=== PATIENT | male | born 1940 | race Caucasian/White ===

== ENCOUNTER 2016-11-03 17:54 | Inpatient (IN) ==
--- NOTE | 2016-11-03 18:55 | Emergency Department Note ---
Disposition Clinical Impression: Scrotal abscess Disposition: Admitted As Inpatient Referrals: NO,PCP [Primary Care Provider] - Forms: ED Satisfaction Letter Male Urogenital HPI - General Chief complaint: ED Wound/Laceration Stated complaint: Scar Bleeding Time Seen by Provider: 11/03/16 18:40 Source: patient Limitations: no limitations Nursing Notes Reviewed: Yes Vital Signs Reviewed: Yes - History of Present Illness HPI Narrative: Patient is a 76-year-old male who had a surgical procedure on his testicle last month is complaining of some pain swelling and discharge from his scrotum. He states the swelling was going down and then started increasing is currently on Levaquin about 5 AM and area on the left side of his scrotum opened up and started draining blood and pus. He is having pain redness in the scrotum Pt Subjective Complaint: other Severity: moderate Quality: aching, dull Improves with: rest, elevation Worsens with: palpation recent surgery Reports: discharge, swelling. Denies: nausea/vomiting - Related Data Home Medications Medication Instructions Recorded Confirmed Ascorbic Acid [Vitamin C] 1,000 mg PO DAILY 09/14/16 09/14/16 Calcium Carb/Magnesium Hydrox 1 each PO DAILY 09/14/16 09/14/16 [Antacid Extra Strngth Tab Chew] Cholecalciferol (Vitamin D3) 1,000 unit PO DAILY 09/14/16 09/14/16 [Vitamin D3] Kelp 1 each PO DAILY 09/14/16 09/14/16 Vitamin B Complex 1 each PO DAILY 09/14/16 09/14/16 Vitamin E (Dl,Tocopheryl Acet) 400 unit PO DAILY 09/14/16 09/14/16 [Vitamin E] Previous Rx's Medication Instructions Recorded HYDROcodone/Acet 10/325 mg [Mays 1 tab PO Q4HR PRN #20 tab 09/14/16 10-325 mg] Allergies Allergy/AdvReac Type Severity Reaction Status Date / Time cephalexin [From Keflex] AdvReac Rash Verified 09/14/16 13:26 All systems ED: reviewed and negative except as stated. Constitutional: Denies: fever, chills, weakness Gastrointestinal: Denies: nausea, vomiting Past Medical History - Past Medical History Source: patient, old records reviewed, nursing notes reviewed Medical history: Reports: atrial fibrillation, DVT Surgical history: Reports: other Psychiatric history: Reports: no psych history - Social History Smoking Status: Never smoker Smokeless Tobacco Status: No Alcohol use: Reports: none Drug use: Reports: none Physical Exam - General Limitations: no limitations General appearance: alert, in no apparent distress - Eye Eye exam: Present: normal appearance - ENT ENT exam: normal exam, normal oropharynx, mucous membranes moist, normal external ear exam - Neck Neck exam: Present: normal inspection, full ROM, trachea midline - Chest Chest inspection: Present: normal inspection, symmetric chest wall rise - Respiratory Respiratory exam: Present: normal lung sounds bilaterally - Cardiovascular Cardiovascular exam: Present: regular rate, normal rhythm, normal heart sounds - Abdominal Exam Abdominal Exam: Present: soft, Non-Tender, normal bowel sounds - Male exam: Present: scrotal swelling (With a open area on the left side of the scrotum draining purulent material and a scant amount of blood) - Neurological Exam Neurological exam: Present: alert, oriented X3, normal gait - Psychiatric Psychiatric exam: Present: normal affect, normal mood - Skin Skin exam: Present: warm, dry, intact, normal color Course - Consultations Consultation #1: DR. SR, [facility], [facility] WILL CONSULT IN AM Time: 20:40 Vital Signs Temperature 99.4 F 11/03/16 18:06 Pulse Rate 92 11/03/16 18:06 Respiratory Rate 18 11/03/16 18:06 Blood Pressure 185/100 11/03/16 18:06 O2 Sat by Pulse Oximetry 96 11/03/16 18:06 Temperature 99.4 F 11/03/16 18:06 Pulse Rate 78 11/03/16 19:30 Respiratory Rate 16 11/03/16 19:27 Blood Pressure 140/80 11/03/16 19:30 O2 Sat by Pulse Oximetry 96 11/03/16 18:06 Oxygen Delivery Oxygen Delivery Room Air Urogenital-Male - Medical Records Medical records reviewed: Yes I reviewed the patient's medical records. - Lab Data Lab results reviewed: Yes I reviewed the patient's lab results. Result diagrams: 11/03/16 20:00 11/03/16 20:00 Lab Results 11/03/16 11/03/16 11/03/16 Range/Units 20:00 20:00 20:00 WBC 15.3 H (4.3-11.1) K/mcL RBC 4.20 (4.19-5.50) M/mcL Hgb 12.2 L (12.9-16.9) g/dL Hct 38.6 (37.5-50.1) % MCV 91.9 (83.0-100.0) fL MCH 29.0 (28.0-33.3) pg MCHC 31.6 (31.6-35.5) g/dL RDW 14.2 (11.5-14.5) % Plt Count 368 (140-400) K/mcL MPV 8.7 L (9.4-12.4) fL Immature Gran % 1.4 (0-4) % Seg Neutrophils % 82.1 % Lymphocytes % 6.5 % Monocytes % 7.3 % Eosinophils % 2.2 % Basophils % 0.5 % Neutrophils # 12.6 H (1.6-8.9) K/mcL Lymphocytes # 1.0 (0.6-4.6) K/mcL Monocytes # 1.1 (0.0-1.3) K/mcL Eosinophils # 0.3 (0.0-0.6) K/mcL Basophils # 0.1 (0.0-0.2) K/mcL PT 34.5 H (9.4-12.1) Seconds INR 3.1 APTT 42.5 H (26.0-36.0) Seconds Sodium 137 (136-145) mEq/L Potassium 4.9 H (3.5-4.5) mEq/L Chloride 101 (98-109) mEq/L Carbon Dioxide 26 (19-29) mEq/L BUN 15 (8-26) mg/dL Creatinine 0.91 (0.72-1.25) mg/dL Est GFR ( Amer) > 60 (> 60) Est GFR (Non-Af Amer) > 60 (> 60) BUN/Creatinine Ratio 16 (6-26) Glucose 100 H (70-99) mg/dL Calculated Osmolality 285 (280-300) Lactic Acid (0.5-2.2) mmol/L Calcium 9.4 (8.6-10.8) mg/dL Total Bilirubin 0.5 (0.2-1.2) mg/dL Direct Bilirubin 0.3 (0.0-0.5) mg/dL Indirect Bilirubin 0.2 (0.0-1.2) mg/dL AST 30 (5-34) Units/L ALT 53 (0-55) Units/L Alkaline Phosphatase 95 (38-126) Units/L Serum Total Protein 7.8 (6.0-8.3) g/dL Albumin 2.8 L (3.5-5.0) g/dL Globulin 5.0 H (2.4-3.5) g/dL Albumin/Globulin Ratio 0.6 L (1.1-2.2) 11/03/16 Range/Units 20:00 WBC (4.3-11.1) K/mcL RBC (4.19-5.50) M/mcL Hgb (12.9-16.9) g/dL Hct (37.5-50.1) % MCV (83.0-100.0) fL MCH (28.0-33.3) pg MCHC (31.6-35.5) g/dL RDW (11.5-14.5) % Plt Count (140-400) K/mcL MPV (9.4-12.4) fL Immature Gran % (0-4) % Seg Neutrophils % % Lymphocytes % % Monocytes % % Eosinophils % % Basophils % % Neutrophils # (1.6-8.9) K/mcL Lymphocytes # (0.6-4.6) K/mcL Monocytes # (0.0-1.3) K/mcL Eosinophils # (0.0-0.6) K/mcL Basophils # (0.0-0.2) K/mcL PT (9.4-12.1) Seconds INR APTT (26.0-36.0) Seconds Sodium (136-145) mEq/L Potassium (3.5-4.5) mEq/L Chloride (98-109) mEq/L Carbon Dioxide (19-29) mEq/L BUN (8-26) mg/dL Creatinine (0.72-1.25) mg/dL Est GFR ( Amer) (> 60) Est GFR (Non-Af Amer) (> 60) BUN/Creatinine Ratio (6-26) Glucose (70-99) mg/dL Calculated Osmolality (280-300) Lactic Acid 0.9 (0.5-2.2) mmol/L Calcium (8.6-10.8) mg/dL Total Bilirubin (0.2-1.2) mg/dL Direct Bilirubin (0.0-0.5) mg/dL Indirect Bilirubin (0.0-1.2) mg/dL AST (5-34) Units/L ALT (0-55) Units/L Alkaline Phosphatase (38-126) Units/L Serum Total Protein (6.0-8.3) g/dL Albumin (3.5-5.0) g/dL Globulin (2.4-3.5) g/dL Albumin/Globulin Ratio (1.1-2.2)
[2016-11-03 20:15] LABS: Basophils # 0.1 K/mcL (0.0-0.2); Basophils % 0.5 %; Eosinophils # 0.3 K/mcL (0.0-0.6); Eosinophils % 2.2 %; Hematocrit 38.6 % (37.5-50.1); Hemoglobin 12.2 g/dL (12.9-16.9); Immature Granulocytes % 1.4 % (0-4); Lymphocytes % 6.5 %; Mean Corpuscular HGB Conc 31.6 g/dL (31.6-35.5); Mean Corpuscular Volume 91.9 fL (83.0-100.0); Mean Platelet Volume 8.7 fL (9.4-12.4); Monocytes # 1.1 K/mcL (0.0-1.3); Monocytes % 7.3 %; Neutrophils # 12.6 K/mcL (1.6-8.9); Platelet Count 368 K/mcL (140-400); Red Cell Distribution Width 14.2 % (11.5-14.5); Segmented Neutrophils % 82.1 %
[2016-11-03 20:21] LABS: INR 3.1; Prothrombin Time 34.5 Seconds (9.4-12.1)
[2016-11-03 20:24] LABS: Activated Partial Thrombo Time 42.5 Seconds (26.0-36.0)
[2016-11-03 20:30] LABS: Alanine Aminotransferase 53 Units/L (0-55); Albumin 2.8 g/dL (3.5-5.0); Albumin/Globulin Ratio 0.6 (1.1-2.2); Alkaline Phosphatase 95 Units/L (38-126); Aspartate Amino Transferase 30 Units/L (5-34); BUN/Creatinine Ratio 16 (6-26); Bilirubin,Direct 0.3 mg/dL (0.0-0.5); Bilirubin,Indirect 0.2 mg/dL (0.0-1.2); Bilirubin,Total 0.5 mg/dL (0.2-1.2); Blood Urea Nitrogen 15 mg/dL (8-26); Calcium 9.4 mg/dL (8.6-10.8); Carbon Dioxide 26 mEq/L (19-29); Chloride 101 mEq/L (98-109); Glucose 100 mg/dL (70-99); Osmolality,Calculated 285 (280-300); Potassium 4.9 mEq/L (3.5-4.5); Sodium 137 mEq/L (136-145); Total Protein 7.8 g/dL (6.0-8.3); eGFR For African Americans > 60 (> 60); eGFR For Non-African Americans > 60 (> 60)
[2016-11-03] MEDS ORDERED: Clindamycin 600 MG/50 ML 600 MG/50 ML IV.SOLN IVPB ONE (20:33)
[2016-11-03] MEDS ORDERED: Vancomycin 2,000 MG in D5% in Water 500 ML IVPB ONE (21:00)
[2016-11-03] MEDS ORDERED: *HR* HYDROcodone/Acet 5/325 mg TABLET PO PRN (22:27)
[2016-11-03] MEDS ORDERED: Naloxone 0.4 MG/ML INJ IVP PRN (22:27)
[2016-11-03] MEDS ORDERED: Acetaminophen 325 MG TABLET PO PRN (22:27)
--- NOTE | 2016-11-03 22:51 | Internal Med History&Physical ---
Date of Encounter: 11/03/16 Time of Encounter: 22:36 Assessment and Plan (1) Scrotal abscess Current visit: Yes Status: Acute 1 patient had undergone a hydrocelectomy beginning of September. He had been doing well up until approximately last week when he began to experience pain swelling redness. Left side of scrotum opened and began to drain blood/pus. He did have fever on Tuesday temperature 100.1 he was seen by his urologist who placed him on antibiotics however he was not improving. Blood/wound cultures have been obtained, he was given vancomycin and clindamycin per recommendations of urology. We will continue with antibiotics 2 urology has been consulted and will see patient 3 patient does admit that he does not have any difficulty urinating however he does dribble which leaks down onto his scrotum, concern for continued contamination-patient may need Garcia placement-however due to swelling, we will wait for urology to evaluate before placing catheter (2) Dvt femoral (deep venous thrombosis) Current visit: No Status: Chronic 1 patient has history of DVT treated with Xaralto we will continue Qualifiers: Chronicity: chronic Laterality: left Qualified Code(s): I82.512 - Chronic embolism and thrombosis of left femoral vein (3) Hydrocele in adult Current visit: No Status: Chronic 1 patient has history of hydrocele-urology consulted Internal Medicine - H&P: HPI Chief complaint: scrotal drainage Admitted From: Emergency Dept Plans for Post Hospital Care: Home History of present illness: Mr. Arcos is a 76 year old male with past medical history of DVT PVD venous stasis hydrocele. The patient underwent a Hydrocelectomy R scrotum . He was doing quite well up until approximately a week ago when he noticed that his scrotum began to swell. He contacted Dr Contreras who saw him and obtained ultrasound and placed him on Levaquin. On Tuesday he had a fever of 101. The scrotum continued to be swollen, it became red and painful .At approx 5am the L side of the scrotum began to drain blood and pus. He presented to the ED with the above complaints . Lab work did reveal WBC 15.3 lactate 0.9 Blood/wound cultures were obtained. ER physician did speak with DR Lara who will see patient upon consult and suggest Vanc and clindamycin. He has been admitted for further work up and evaluation. Presently he denies any CP or SOB. Lung sounds are clear Heart sounds are regular S1S2 no rubs clicks gallops murmurs noted. His scrotum is red and edematous. Left side of scrotum has small lesion with red drainage. Patient does state that he does not have any difficulty urinating however he does dribble urine onto his scrotum. Abdomen soft nontender slight pedal edema to left lower extremity. He is hemodynamically stable at this time review this case with Dr. Lyle who agrees with plan Past Med Surg Social Fam HX - Past Medical History Medical history: atrial fibrillation, DVT Psychiatric history: no psych history - Past Surgical History Surgical History: other - Social History Smoking Status: Never smoker Smokeless Tobacco Status: No Alcohol use: none Drug use: none - Family History Father Living Status: Cause of : [place] Internal Medicine - H&P: Meds Rivaroxaban [Xarelto] 20 mg PO 1200 11/03/16 [History] levoFLOXacin [Levofloxacin] 500 mg PO DAILY 11/03/16 [History] Allergies cephalexin [From Keflex] Adverse Reaction (Verified 09/14/16 13:26) Rash PATIENT STATES WAS ADVISED TO NOT TAKE PCN WELL SINCE ALLERGIC TO KEFLEX All Systems PM: A 10-system review of systems was performed and is negative for pertinent findings except as documented above in the HPI. - Constitutional Constitutional: no chills, no fever(s), no night sweats - EENT Eyes: no change in vision, no discharge, no pain, no photophobia Nose, mouth and throat: no dysphagia, no nasal discharge, no neck pain, no sore throat - Cardiovascular Cardiovascular ROS IM: no chest pain, no diaphoresis, no dyspnea, no lightheadedness, no palpitations, no syncope - Respiratory Respiratory: no cough, no dyspnea, no wheezing, no excessive phlegm production - Gastrointestinal Gastrointestinal: no abdominal pain, no diarrhea, no hematemesis, no hematochezia, no melena, no nausea, no vomiting - Genitourinary Genitourinary ROS male: genital lesions, scrotal swelling - Musculoskeletal Musculoskeletal ROS IM: no numbness, no tingling - Integumentary Integumentary IM: no rash, no unusual bruising - Neurological Neurological ROS: no confusion, no convulsions, no focal weakness, no numbness, no tingling, no tremor(s) - Hematologic/Lymphatic Hematologic/Lymphatic: no easy bruising - Constitutional Vitals: Temp Pulse Resp BP Pulse Ox 99.4 F 78 16 138/79 96 11/03/16 18:06 11/03/16 21:30 11/03/16 22:26 11/03/16 22:26 11/03/16 18:06 General appearance: Present: A&O X 3, obese - Head Head exam: Present: atraumatic, normocephalic - Eye Eye exam: Present: PERRL, conjuntiva pink, sclera anicteric Pupils: Present: PERRL - Neck Neck exam general surgery: Present: supple, trachea midline. Absent: lymphadenopathy - Respiratory Respiratory exam: Present: CTAB. Absent: accessory muscle use, rales, rhonchi, wheezes - Cardiovascular Cardiovascular exam: Present: RRR, +S1, +S2. Absent: diastolic murmur, gallop, rubs, systolic murmur - GI/Abdominal GI/Abdominal exam: Present: normal bowel sounds, soft, no peritoneal signs. Absent: distended, tenderness - exam: Present: scrotal swelling - Expanded Exam Male exam: Present: lesions exam: testicular tenderness: Left, Right - Extremities Exam Extremities exam: Present: pedal edema, warm, radial pulses palpable and symetrical. Absent: calf tenderness, cyanotic - Neurological Exam Neurological exam: Present: CN II-XII intact, oriented X3, no focal deficits. Absent: pronater drift, facial droop, speech deficit - Skin Skin exam: Present: dry, intact Internal Med - H&P Results - Labs CBC & Chem 7: 11/03/16 20:00 11/03/16 20:00
[2016-11-03] MEDS: Clindamycin 600 MG/50 ML 600 MG/50 ML IV.SOLN IVPB SCH (23:27)
[2016-11-03] MEDS ORDERED: *HR* Morphine 2 MG/ML SYRINGE IVP PRN (23:28)
[2016-11-04 03:11] LABS: Basophils # 0.1 K/mcL (0.0-0.2); Basophils % 0.5 %; Eosinophils # 0.3 K/mcL (0.0-0.6); Eosinophils % 2.3 %; Hemoglobin 12.3 g/dL (12.9-16.9); Immature Granulocytes % 1.6 % (0-4); Lymphocytes # 1.1 K/mcL (0.6-4.6); Lymphocytes % 8.8 %; Mean Corpuscular HGB Conc 31.5 g/dL (31.6-35.5); Mean Corpuscular Hemoglobin 28.9 pg (28.0-33.3); Mean Corpuscular Volume 91.5 fL (83.0-100.0); Mean Platelet Volume 8.4 fL (9.4-12.4); Monocytes # 0.9 K/mcL (0.0-1.3); Monocytes % 7.2 %; Neutrophils # 9.9 K/mcL (1.6-8.9); Platelet Count 386 K/mcL (140-400); Red Blood Count 4.26 M/mcL (4.19-5.50); Red Cell Distribution Width 14.1 % (11.5-14.5); Segmented Neutrophils % 79.6 %
[2016-11-04 03:32] LABS: BUN/Creatinine Ratio 14 (6-26); Blood Urea Nitrogen 13 mg/dL (8-26); Calcium 9.3 mg/dL (8.6-10.8); Carbon Dioxide 29 mEq/L (19-29); Chloride 102 mEq/L (98-109); Glucose 115 mg/dL (70-99); Osmolality,Calculated 287 (280-300); Potassium 4.2 mEq/L (3.5-4.5); Sodium 138 mEq/L (136-145); eGFR For African Americans > 60 (> 60); eGFR For Non-African Americans > 60 (> 60)
[2016-11-04] MEDS ORDERED: Lidocaine -MPF 1% 5 ML AMPUL INFILT ONE (07:07)
--- NOTE | 2016-11-04 07:10 | Urology - Consult Note ---
Date of Encounter: 11/04/16 Time of Encounter: 07:08 - Assessment and Plan (1) Scrotal abscess Current Visit: Yes Status: Acute Assessment and plan: Will plan on returning and performing incision and drainage of wound. Urology CN:HPI Consult date: 11/04/16 Reason for consult Urology: Other (scrotal abscess) Requesting physician: Harmony Romero History of present illness: Nash is a 76-year-old male with a history of hydrocelectomy done on 2016. Patient developed infection approximately 1 month after the surgery. He was placed on antibiotics by Dr. Contreras. He states that the wound spontaneously started draining yesterday. He came to the emergency department with fever and leukocytosis. He was brought in for observation for further evaluation. Patient denies significant pain in the scrotum Past Med Surg Social Fam HX - Past Medical History Medical history: atrial fibrillation, DVT Psychiatric history: no psych history - Past Surgical History Surgical History: other - Social History Smoking Status: Never smoker Smokeless Tobacco Status: No Alcohol use: none Drug use: none - Family History Father Hx Family Cardiac Disorders: Yes Medications and Allergies Rivaroxaban [Xarelto] 20 mg PO 1200 11/03/16 [History] levoFLOXacin [Levofloxacin] 500 mg PO DAILY 11/03/16 [History] Allergies cephalexin [From Keflex] Adverse Reaction (Verified 09/14/16 13:26) Rash PATIENT STATES WAS ADVISED TO NOT TAKE PCN WELL SINCE ALLERGIC TO KEFLEX Review of Systems - Constitutional fever(s) - EENT Nose, mouth and throat: no dizziness - Cardiovascular no chest pain - Respiratory no cough - Gastrointestinal no abdominal pain - Genitourinary as per HPI Exam Initial Vital Signs Temp Pulse Resp BP Pulse Ox 99.4 F 92 18 185/100 96 11/03/16 18:06 11/03/16 18:06 11/03/16 18:06 11/03/16 18:06 11/03/16 18:06 - General physical appearance Present: well developed - Eyes Present: PERRL - Respiratory Present: normal respiratory effort - Cardiovascular Cardiovascular exam IM: RRR - Abdomen Abdomen: Present: soft - Genitourinary other (Red and inflamed and markedly edematous scrotum with fluctuant area on left anterior aspect of scrotum) Urology Results - Labs 11/04/16 02:54 11/04/16 02:54 Abnormal lab results WBC 12.5 K/mcL (4.3-11.1) H 11/04/16 02:54 Hgb 12.3 g/dL (12.9-16.9) L 11/04/16 02:54 MCHC 31.5 g/dL (31.6-35.5) L 11/04/16 02:54 MPV 8.4 fL (9.4-12.4) L 11/04/16 02:54 Neutrophils # 9.9 K/mcL (1.6-8.9) H 11/04/16 02:54 PT 34.5 Seconds (9.4-12.1) H 11/03/16 20:00 APTT 42.5 Seconds (26.0-36.0) H 11/03/16 20:00 Glucose 115 mg/dL (70-99) H 11/04/16 02:54 Albumin 2.8 g/dL (3.5-5.0) L 11/03/16 20:00 Globulin 5.0 g/dL (2.4-3.5) H 11/03/16 20:00 Albumin/Globulin Ratio 0.6 (1.1-2.2) L 11/03/16 20:00 Diabetes panel 11/04/16 Range/Units 02:54 Sodium 138 (136-145) mEq/L Potassium 4.2 (3.5-4.5) mEq/L Chloride 102 (98-109) mEq/L Carbon Dioxide 29 (19-29) mEq/L BUN 13 (8-26) mg/dL Creatinine 0.90 (0.72-1.25) mg/dL Glucose 115 H (70-99) mg/dL Calcium 9.3 (8.6-10.8) mg/dL Calcium panel 11/04/16 Range/Units 02:54 Calcium 9.3 (8.6-10.8) mg/dL Pituitary panel 11/04/16 Range/Units 02:54 Sodium 138 (136-145) mEq/L Potassium 4.2 (3.5-4.5) mEq/L Chloride 102 (98-109) mEq/L Carbon Dioxide 29 (19-29) mEq/L BUN 13 (8-26) mg/dL Creatinine 0.90 (0.72-1.25) mg/dL Glucose 115 H (70-99) mg/dL Calcium 9.3 (8.6-10.8) mg/dL Adrenal panel 11/04/16 Range/Units 02:54 Sodium 138 (136-145) mEq/L Potassium 4.2 (3.5-4.5) mEq/L Chloride 102 (98-109) mEq/L Carbon Dioxide 29 (19-29) mEq/L BUN 13 (8-26) mg/dL Creatinine 0.90 (0.72-1.25) mg/dL Glucose 115 H (70-99) mg/dL Calcium 9.3 (8.6-10.8) mg/dL All other labs normal. Consult Discharge Plan - Plan Referrals: George Lim, WHITEPRINTING MACHINE OPERATOR [Primary Care Provider] -
[2016-11-04] MEDS: Clindamycin 600 MG/50 ML 600 MG/50 ML IV.SOLN IVPB SCH ×2 (08:44→16:26)
[2016-11-04] MEDS ORDERED: Vancomycin (wt based) 1,000 MG VIAL IVPB SCH (09:00)
[2016-11-04] MEDS: Vancomycin 1,250 MG in D5% in Water 250 ML IVPB SCH ×2 (09:36→21:17)
--- NOTE | 2016-11-04 12:01 | Event Note ---
Date of Encounter: 11/04/16 Time of Encounter: 11:58 Time out performed. Patient was preped and draped in sterile fashion. I then instilled 8 cc of 1% lidocaine into the anterior left scrotum. I then incised into this area. ONly a small amount of pus was then returned. I then probed the wound with my finger with large amount of clot felt. I then was able to remove this clot in the scrotum. There was another area of pus on the midline which did connect to the other pocket. I then packed the wound with wet kerlex gauze. Will need to continue with wet to dry dressing changes. I will perform the first change tomorrow.
--- NOTE | 2016-11-04 19:27 | Internal Med Progress Note ---
Date of Encounter: 11/04/16 Time of Encounter: 19:00 - Assessment and plan (1) Scrotal abscess Current Visit: Yes Status: Acute Assessment and plan: Currently on IV abx. S/P I&D today. Continue local wound care. (2) Dvt femoral (deep venous thrombosis) Current Visit: No Status: Chronic Assessment and plan: Restart Xarelto tomorrow if OK with urology. Qualifiers: Chronicity: chronic Laterality: left Qualified Code(s): I82.512 - Chronic embolism and thrombosis of left femoral vein (3) Hydrocele in adult Current Visit: No Status: Chronic (4) Obesity (BMI 30-39.9) Current Visit: Yes Status: Chronic - Subjective Interval history: Mr. Arcos is currently admitted for infected scrotum with abscess. He is moderate to high risk due to potential for worsening infectious status. Mr. Arcos is doing OK. Pain is tolerable. He is concerned about living alone and taking care of this. He is tolerating IV abx. No fever or chills. - Constitutional Vitals: Temp Pulse Resp BP Pulse Ox 98.4 F 81 16 180/92 96 11/04/16 18:59 11/04/16 18:59 11/04/16 18:59 11/04/16 18:59 11/04/16 18:59 General appearance: Present: A&O X 3, pleasant, obese - Head Head exam: Present: normocephalic - Eye Eye exam: Present: EOMI, conjuntiva pink - ENT ENT exam: Present: mucous membranes dry - Respiratory Respiratory exam: Present: decreased breath sounds, CTAB. Absent: rhonchi, wheezes - Cardiovascular Cardiovascular exam: Present: RRR. Absent: tachycardia - GI/Abdominal GI/Abdominal exam: Present: soft. Absent: tenderness - Extremities Exam Extremities exam: Present: warm. Absent: tenderness - Neurological Exam Neurological exam: Present: alert, oriented X3 - Skin Additional comments: Dressing intact on scrotum. Internal Medicine: Result - Labs CBC & Chem 7: 11/04/16 02:54 11/04/16 02:54 Labs: Short CBC 11/04/16 Range/Units 02:54 WBC 12.5 H (4.3-11.1) K/mcL Hgb 12.3 L (12.9-16.9) g/dL Hct 39.0 (37.5-50.1) % Plt Count 386 (140-400) K/mcL Neutrophils # 9.9 H (1.6-8.9) K/mcL BMP 11/04/16 02:54 Sodium 138 Potassium 4.2 Chloride 102 Carbon Dioxide 29 BUN 13 Creatinine 0.90 Glucose 115 H Calcium 9.3 - ABG Interpretation ABG results: PT/INR, D-dimer PT 34.5 Seconds (9.4-12.1) H 11/03/16 20:00 Consult Discharge Plan - Plan Referrals: George Lim, WEB DEVELOPMENT CONSULTANT [Primary Care Provider] -
[2016-11-04 19:33] LABS: Acinetobacter baumannii by PCR Not Detected (Not Detect); Candida albicans by PCR Not Detected (Not Detect); Candida glabrata by PCR Not Detected (Not Detect); Candida krusei by PCR Not Detected (Not Detect); Candida parapsilosis by PCR Not Detected (Not Detect); Candida tropicalis by PCR Not Detected (Not Detect); Enterococcus by PCR Not Detected (Not Detect); Escherichia coli by PCR Not Detected (Not Detect); Klebsiella oxytoca by PCR Not Detected (Not Detect); Klebsiella pneumoniae by PCR Not Detected (Not Detect); Pseudomonas aeruginosa by PCR Not Detected (Not Detect); Serratia marcescens by PCR Not Detected (Not Detect); Staphylococcus aureus by PCR Not Detected (Not Detect); Streptococcus agalactiae(B)PCR Not Detected (Not Detect); Streptococcus by PCR Not Detected (Not Detect); Streptococcus pneumoniae PCR Not Detected (Not Detect); Streptococcus pyogenes (A) PCR Not Detected (Not Detect); blaKPC Carbapenem-Resist Gene Not Detected (Not Detect); mecA Methicillin-Resist Gene ***DETECTED*** (Not Detect); vanA/B Vancomycin-Resist Genes Not Detected (Not Detect)
[2016-11-05] MEDS: Clindamycin 600 MG/50 ML 600 MG/50 ML IV.SOLN IVPB SCH ×2 (00:18→09:20)
--- NOTE | 2016-11-05 07:18 | Urology Progress Note ---
Date of Encounter: 11/05/16 Time of Encounter: 07:16 - Assessment and Plan (1) Scrotal abscess Current Visit: Yes Status: Acute Assessment and plan: Patient's exam is improving appropriately. I recommend a few more days of IV antibiotics and wound care by the urology service. Hopefully it will continue to improve allowing for patient managed wound care and discharge Progress Note Subjective: feels better Narrative: less scrotal pain Objective Initial Vital Signs Temp Pulse Resp BP Pulse Ox 99.4 F 92 18 185/100 96 11/03/16 18:06 11/03/16 18:06 11/03/16 18:06 11/03/16 18:06 11/03/16 18:06 - General physical appearance Present: well developed, no distress - Additional Exam Scrotum still has some erythema. Significant decrease in scrotal swelling compared to my last evaluation in the office. Dressings and packing were removed by M.D. No significant return of purulence. I performed a gentle probing of the incision with my finger without return of purulence. I repacked the incision with resection of kerlix moistened with normal saline. Patient tolerated well - Labs 11/04/16 02:54 11/04/16 02:54 Consult Discharge Plan - Plan Referrals: George Lim, BATH STEWARD [Primary Care Provider] -
[2016-11-05] MEDS: Vancomycin 1,250 MG in D5% in Water 250 ML IVPB SCH ×2 (10:26→21:01)
[2016-11-05] MEDS: *HR* Rivaroxaban 10 MG TABLET PO SCH (11:38)
--- NOTE | 2016-11-05 14:21 | Infectious Disease Consult ---
Date of Encounter: 11/05/16 Time of Encounter: 14:15 Assessment and Plan (1) Sepsis Status: Acute Qualifiers: Sepsis type: sepsis due to unspecified organism Qualified Code(s): A41.9 - Sepsis, unspecified organism (2) Scrotal abscess Status: Acute Assessment and plan: causitive organism E coli R flouroquinolones and Unasyn GPC - final ID pending but appears to be enterococcal spp pt also allergic to keflex but tolerating zosyn for now continue vanc and zosyn final abx recommendations depends on final bacterial ID monitor labs and for drug toxicity duration of treatment depends on clinical picture (3) Bacteremia due to Gram-positive bacteria Status: Acute Assessment and plan: likely a contaminant with CoNS Infectious Disease HPI - Data of Consult Patient: new to practice Consult date: 11/05/16 Requesting Physician: Ramesh Tucker DO Primary Care Provider: George Lim CNP - Consult Narrative Reason for consult: scrotal infection History of present illness: Mr. Arcos is a 76 year old male Patient is 76-year-old gentleman admitted on 11/03/2016 with a scrotal abscess, we are asked to evaluate the patient on 11/05/2016 to make antibiotic recommendations. Patient is 76-year-old gentleman with past medical history significant for DVT, peripheral vascular disease and venous stasis hydrocele underwent a hydroclectoomy me of the right scrotum. Postop he did okay until about a week prior to admission when he started having swelling and pain in the scrotal area. Patient contacted the urologist who evaluated him as an outpatient and started on levofloxacin. Patient continued not to feel well and had a fever of 101 Fahrenheit. Patient stated that the scrotum was swollen and red and painful. On the day prior to admission patient started having pus and blood draining from the scrotum. Patient came into the emergency department and was admitted. Since admission, patient has been afebrile with MAXIMUM TEMPERATURE of 99.4, patient was slightly tachycardic with a heart rate in the 90s, presenting WBC was 15.3 with neutrophilic predominance and no bands. Cultures from the groin were obtained and have grown Escherichia coli that is resistant to ampicillin, Unasyn, and fluoroquinolones and gram-positive cocci which appears to be an enterococcus species. Patient also had 1 out of 2 blood cultures positive for gram-positive cocci that appears to be coag-negative staph which is likely contaminant. Patient was started on clindamycin and vancomycin. We were asked to evaluate the patient and make further recommendations. Currently, patient appears comfortable. Just came back from [facility]. Denies any complaints. No chest pain, no shortness of breath. no cough, no diarrhea CC: Ramesh Tucker, DO Past Med Surg Social Fam HX - Past Medical History Medical history: atrial fibrillation, DVT Psychiatric history: no psych history - Past Surgical History Surgical History: other - Social History Smoking Status: Never smoker Smokeless Tobacco Status: No Alcohol use: none Drug use: none - Family History Father Hx Family Cardiac Disorders: Yes Infectious Disease-CN:Meds Rivaroxaban [Xarelto] 20 mg PO 1200 11/03/16 [History] levoFLOXacin [Levofloxacin] 500 mg PO DAILY 11/03/16 [History] Allergies cephalexin [From Keflex] Adverse Reaction (Verified 09/14/16 13:26) Rash PATIENT STATES WAS ADVISED TO NOT TAKE PCN WELL SINCE ALLERGIC TO KEFLEX Review of systems: 10 point ROS done, negative other for what's mentioned in the HPI Exam - Constitutional Vitals: Temp Pulse Resp BP Pulse Ox 98.5 F 74 16 151/76 94 11/05/16 11:35 11/05/16 11:35 11/05/16 11:35 11/05/16 11:35 11/05/16 11:35 General appearance: cooperative, no no acute distress - Head Head exam: Present: atraumatic, normocephalic - Eye Eye exam: Present: EOMI, PERRL - ENT ENT exam: Present: mucous membranes moist - Neck Neck exam: Present: full ROM. Absent: meningismus - Respiratory Respiratory exam: Present: CTAB. Absent: wheezes - Cardiovascular Cardiovascular exam: Present: RRR, +S1, +S2 - GI/Abdominal GI/Abdominal exam: Present: normal bowel sounds, soft. Absent: tenderness - Extremities Exam Extremities exam: Present: normal inspection. Absent: pedal edema Additional comments: scrotal area wiith guaze and dressing - Neurological Exam Neurological exam: Present: alert, oriented X3. Absent: speech deficit - Skin Skin exam: Absent: rash Infectious Disease CN: Results - Labs CBC & Chem 7: 11/06/16 06:01 11/06/16 06:01 Consult Discharge Plan - Plan Referrals: George Lim, [employer] [Primary Care Provider] -
--- NOTE | 2016-11-05 18:53 | Internal Med Progress Note ---
Date of Encounter: 11/05/16 Time of Encounter: 07:20 - Assessment and plan (1) Scrotal abscess Current Visit: Yes Status: Acute Assessment and plan: Currently on IV abx. S/P I&D. ID consult for abx. (2) Dvt femoral (deep venous thrombosis) Current Visit: No Status: Chronic Assessment and plan: Restart Xarelto today. Qualifiers: Chronicity: chronic Laterality: left Qualified Code(s): I82.512 - Chronic embolism and thrombosis of left femoral vein (3) Hydrocele in adult Current Visit: No Status: Chronic (4) Obesity (BMI 30-39.9) Current Visit: Yes Status: Chronic Assessment and plan: Chronic problem. (5) Bacteremia due to Gram-positive bacteria Current Visit: Yes Status: Acute Assessment and plan: Per ID adjustments in abx. - Subjective Interval history: Mr. Arcos is currently admitted for infected scrotum with abscess. He is moderate to high risk due to potential for worsening infectious status. Mr. Arcos feels OK at this time. He slept OK. Pain is tolerable. No fever. Wants to go to SNF at discharge for wound care. Final cultures pending. - Constitutional Vitals: Temp Pulse Resp BP Pulse Ox 98.2 F 75 15 157/82 92 11/05/16 18:31 11/05/16 18:31 11/05/16 18:31 11/05/16 18:31 11/05/16 18:31 General appearance: Present: A&O X 3, pleasant, obese - Head Head exam: Present: normocephalic - Eye Eye exam: Present: EOMI, conjuntiva pink - ENT ENT exam: Present: mucous membranes moist - Respiratory Respiratory exam: Present: decreased breath sounds, CTAB. Absent: rhonchi, wheezes - Cardiovascular Cardiovascular exam: Present: RRR. Absent: tachycardia - GI/Abdominal GI/Abdominal exam: Present: soft. Absent: tenderness - Additional comments: Dressing intact - Extremities Exam Extremities exam: Present: warm. Absent: tenderness - Neurological Exam Neurological exam: Present: alert, oriented X3, no focal deficits - Skin Skin exam: Present: warm. Absent: rash Internal Medicine: Result - Labs CBC & Chem 7: 11/04/16 02:54 11/04/16 02:54 - ABG Interpretation ABG results: PT/INR, D-dimer PT 34.5 Seconds (9.4-12.1) H 11/03/16 20:00 Consult Discharge Plan - Plan Referrals: George Lim, JD [Primary Care Provider] -
[2016-11-05] MEDS: Piperacillin/Tazobactam 3.375 GM in D5% in Water (Mini-Bag+) 100 ML IVPB SCH (21:01)
[2016-11-06] MEDS: Piperacillin/Tazobactam 3.375 GM in D5% in Water (Mini-Bag+) 100 ML IVPB SCH ×3 (03:42→21:54)
[2016-11-06 06:36] LABS: BUN/Creatinine Ratio 15 (6-26); Blood Urea Nitrogen 15 mg/dL (8-26); Calcium 9.2 mg/dL (8.6-10.8); Carbon Dioxide 29 mEq/L (19-29); Chloride 101 mEq/L (98-109); Glucose 112 mg/dL (70-99); Osmolality,Calculated 286 (280-300); Sodium 137 mEq/L (136-145); eGFR For African Americans > 60 (> 60); eGFR For Non-African Americans > 60 (> 60)
--- NOTE | 2016-11-06 07:48 | Urology Progress Note ---
Date of Encounter: 11/06/16 Time of Encounter: 07:46 - Assessment and Plan (1) Scrotal abscess Current Visit: Yes Status: Acute Assessment and plan: continue iv abx at this time. will continue with dressing changes. needs to ambulate. scrotal elevation. Progress Note Narrative: Patient seen. feeling much better. Gram neg was E. coli. Gram + still pending but appears to be MRSA. Objective Initial Vital Signs Temp Pulse Resp BP Pulse Ox 99.4 F 92 18 185/100 96 11/03/16 18:06 11/03/16 18:06 11/03/16 18:06 11/03/16 18:06 11/03/16 18:06 - General physical appearance Present: well developed - Abdomen Present: soft - Genitourinary Present: other (wound packing removed and replaced. wound probed with finger with no new loculations found. ) - Labs 11/04/16 02:54 11/06/16 06:01 Diabetes panel 11/06/16 Range/Units 06:01 Sodium 137 (136-145) mEq/L Potassium 4.0 (3.5-4.5) mEq/L Chloride 101 (98-109) mEq/L Carbon Dioxide 29 (19-29) mEq/L BUN 15 (8-26) mg/dL Creatinine 0.97 (0.72-1.25) mg/dL Glucose 112 H (70-99) mg/dL Calcium 9.2 (8.6-10.8) mg/dL Calcium panel 11/06/16 Range/Units 06:01 Calcium 9.2 (8.6-10.8) mg/dL Pituitary panel 11/06/16 Range/Units 06:01 Sodium 137 (136-145) mEq/L Potassium 4.0 (3.5-4.5) mEq/L Chloride 101 (98-109) mEq/L Carbon Dioxide 29 (19-29) mEq/L BUN 15 (8-26) mg/dL Creatinine 0.97 (0.72-1.25) mg/dL Glucose 112 H (70-99) mg/dL Calcium 9.2 (8.6-10.8) mg/dL Adrenal panel 11/06/16 Range/Units 06:01 Sodium 137 (136-145) mEq/L Potassium 4.0 (3.5-4.5) mEq/L Chloride 101 (98-109) mEq/L Carbon Dioxide 29 (19-29) mEq/L BUN 15 (8-26) mg/dL Creatinine 0.97 (0.72-1.25) mg/dL Glucose 112 H (70-99) mg/dL Calcium 9.2 (8.6-10.8) mg/dL Consult Discharge Plan - Plan Referrals: George Lim, JD [Primary Care Provider] -
[2016-11-06] MEDS: Vancomycin 1,250 MG in D5% in Water 250 ML IVPB SCH ×2 (08:25→21:53)
[2016-11-06 08:26] LABS: Hematocrit 37.3 % (37.5-50.1); Hemoglobin 11.8 g/dL (12.9-16.9); Mean Corpuscular HGB Conc 31.6 g/dL (31.6-35.5); Mean Corpuscular Hemoglobin 29.2 pg (28.0-33.3); Mean Corpuscular Volume 92.3 fL (83.0-100.0); Mean Platelet Volume 8.9 fL (9.4-12.4); Platelet Count 409 K/mcL (140-400); Red Blood Count 4.04 M/mcL (4.19-5.50)
[2016-11-06] MEDS: *HR* Rivaroxaban 10 MG TABLET PO SCH (11:59)
--- NOTE | 2016-11-06 16:48 | Internal Med Progress Note ---
Date of Encounter: 11/06/16 Time of Encounter: 17:53 - Assessment and plan (1) Scrotal abscess Current Visit: Yes Status: Acute Assessment and plan: Culture with Enterococcus and E coli. Currently on Zosyn and Vanc. Repeat blood cx pending. (2) Dvt femoral (deep venous thrombosis) Current Visit: No Status: Chronic Assessment and plan: On Xarelto Qualifiers: Chronicity: chronic Laterality: left Qualified Code(s): I82.512 - Chronic embolism and thrombosis of left femoral vein (3) Hydrocele in adult Current Visit: No Status: Chronic (4) Obesity (BMI 30-39.9) Current Visit: Yes Status: Chronic Assessment and plan: Chronic problem. (5) Bacteremia due to Gram-positive bacteria Current Visit: Yes Status: Acute Assessment and plan: Cx with staph epidermidis. Repeat cx pending. (6) Venous stasis dermatitis of both lower extremities Current Visit: Yes Status: Chronic Assessment and plan: Chronic problem - Subjective Interval history: Mr. Arcos is currently admitted for infected scrotum with abscess. He is moderate to high risk due to potential for worsening infectious status. He is on IV meds and needs monitoring. Mr. Arcos is eating dinner. No new issues overnight. Has been up some in his room. No fever or chills. No GI symptoms. - Constitutional Vitals: Temp Pulse Resp BP Pulse Ox 98.0 F 66 17 122/75 95 11/06/16 12:06 11/06/16 12:06 11/06/16 12:06 11/06/16 12:06 11/06/16 12:06 General appearance: Present: A&O X 3, pleasant, obese - Head Head exam: Present: normocephalic - Eye Eye exam: Present: EOMI, normal appearance, conjuntiva pink - ENT ENT exam: Present: mucous membranes moist - Respiratory Respiratory exam: Present: CTAB. Absent: rhonchi, wheezes - Cardiovascular Cardiovascular exam: Present: RRR. Absent: systolic murmur, tachycardia - GI/Abdominal GI/Abdominal exam: Present: soft. Absent: tenderness - Extremities Exam Extremities exam: Present: warm Additional comments: venous stasis changes - Neurological Exam Neurological exam: Present: alert, oriented X3, no focal deficits - Psychiatric Psychiatric exam: Present: normal affect, normal mood - Skin Skin exam: Present: warm. Absent: rash Internal Medicine: Result - Labs CBC & Chem 7: 11/06/16 06:01 11/06/16 06:01 Labs: Short CBC 11/06/16 Range/Units 06:01 WBC 10.1 (4.3-11.1) K/mcL Hgb 11.8 L (12.9-16.9) g/dL Hct 37.3 L (37.5-50.1) % Plt Count 409 H (140-400) K/mcL BMP 11/06/16 06:01 Sodium 137 Potassium 4.0 Chloride 101 Carbon Dioxide 29 BUN 15 Creatinine 0.97 Glucose 112 H Calcium 9.2 - ABG Interpretation ABG results: PT/INR, D-dimer PT 34.5 Seconds (9.4-12.1) H 11/03/16 20:00 Consult Discharge Plan - Plan Referrals: George Lim, FURNACE CHARGER [Primary Care Provider] -
[2016-11-07] MEDS: Piperacillin/Tazobactam 3.375 GM in D5% in Water (Mini-Bag+) 100 ML IVPB SCH ×3 (04:46→19:47)
--- NOTE | 2016-11-07 08:00 | Urology Progress Note ---
Date of Encounter: 11/07/16 Time of Encounter: 07:59 - Assessment and Plan (1) Scrotal abscess Current Visit: Yes Status: Acute Assessment and plan: continue dressing changes. continue iv abx for at least another day. staph epi is quite resistant. Progress Note Narrative: patient seen. feeling better. cultures finalized. Objective Initial Vital Signs Temp Pulse Resp BP Pulse Ox 99.4 F 92 18 185/100 96 11/03/16 18:06 11/03/16 18:06 11/03/16 18:06 11/03/16 18:06 11/03/16 18:06 - General physical appearance Present: well developed - Abdomen Present: soft - Genitourinary Present: other (scrotum with improved swelling. wound probed. packing removed and then repacked. ) - Labs 11/06/16 06:01 11/06/16 06:01 Consult Discharge Plan - Plan Referrals: George Lim, [employer]GER [employer] [Primary Care Provider] -
[2016-11-07] MEDS: Vancomycin 1,250 MG in D5% in Water 250 ML IVPB SCH (09:32)
[2016-11-07] MEDS: *HR* Rivaroxaban 10 MG TABLET PO SCH (12:11)
--- NOTE | 2016-11-07 17:45 | Internal Med Progress Note ---
Date of Encounter: 11/07/16 Time of Encounter: 11:30 - Assessment and plan (1) Scrotal abscess Current Visit: Yes Status: Acute Assessment and plan: Culture with Enterococcus and E coli. Currently on Zosyn and Vanc. Repeat blood culture pending. Anticipate final abx plans tomorrow and d/c to SNF. (2) Dvt femoral (deep venous thrombosis) Current Visit: No Status: Chronic Assessment and plan: On Xarelto Qualifiers: Chronicity: chronic Laterality: left Qualified Code(s): I82.512 - Chronic embolism and thrombosis of left femoral vein (3) Hydrocele in adult Current Visit: No Status: Chronic (4) Obesity (BMI 30-39.9) Current Visit: Yes Status: Chronic Assessment and plan: Chronic problem. (5) Bacteremia due to Gram-positive bacteria Current Visit: Yes Status: Acute Assessment and plan: Cx with staph epidermidis. Repeat cx negative thus far. (6) Venous stasis dermatitis of both lower extremities Current Visit: Yes Status: Chronic Assessment and plan: Chronic problem - Subjective Interval history: Mr. Arcos is currently admitted for infected scrotum with abscess. He is moderate to high risk due to potential for worsening infectious status. He is on IV meds and needs monitoring. Mr. Arcos feels OK. No new issues overnight. Pain controlled. Appetite OK. - Constitutional Vitals: Temp Pulse Resp BP Pulse Ox 98.2 F 68 15 137/83 98 11/07/16 16:35 11/07/16 16:35 11/07/16 16:35 11/07/16 16:35 11/07/16 16:35 General appearance: Present: A&O X 3, pleasant, obese - Head Head exam: Present: normocephalic - Eye Eye exam: Present: EOMI, conjuntiva pink - ENT ENT exam: Present: mucous membranes moist - Respiratory Respiratory exam: Present: CTAB. Absent: rhonchi, wheezes - Cardiovascular Cardiovascular exam: Present: RRR. Absent: tachycardia - GI/Abdominal GI/Abdominal exam: Present: soft. Absent: tenderness - Extremities Exam Extremities exam: Present: warm Additional comments: Venous stasis present - Neurological Exam Neurological exam: Present: alert, oriented X3, no focal deficits - Psychiatric Psychiatric exam: Present: normal affect, normal mood - Skin Skin exam: Present: dry, warm Internal Medicine: Result - Labs CBC & Chem 7: 11/06/16 06:01 11/06/16 06:01 - ABG Interpretation ABG results: PT/INR, D-dimer PT 34.5 Seconds (9.4-12.1) H 11/03/16 20:00 Consult Discharge Plan - Plan Referrals: George Lim, THIOKOL OPERATOR [Primary Care Provider] -
[2016-11-07] MEDS: Vancomycin 1,000 MG in D5% in Water 250 ML IVPB SCH (23:10)
[2016-11-08] MEDS: Piperacillin/Tazobactam 3.375 GM in D5% in Water (Mini-Bag+) 100 ML IVPB SCH ×3 (03:30→19:47)
--- NOTE | 2016-11-08 10:34 | Internal Med Progress Note ---
<Patric Osman - Last Filed: 11/08/16 15:59> Date of Encounter: 11/08/16 Time of Encounter: 09:30 - Assessment and plan (1) Scrotal abscess Current Visit: Yes Status: Acute Assessment and plan: Culture with Enterococcus and E coli. Currently on Zosyn and Vancomycin. Continue on antibiotics. Last two blood cultures have been negative. (2) Obesity (BMI 30-39.9) Current Visit: Yes Status: Chronic Assessment and plan: Chronic problem. (3) Venous stasis dermatitis of both lower extremities Current Visit: Yes Status: Chronic Assessment and plan: Chronic problem. (4) Dvt femoral (deep venous thrombosis) Current Visit: No Status: Chronic Assessment and plan: Continue Xarelto. Qualifiers: Chronicity: chronic Laterality: left Qualified Code(s): I82.512 - Chronic embolism and thrombosis of left femoral vein (5) Hydrocele in adult Current Visit: No Status: Chronic - Subjective Interval history: Patient seen and examined at bedside this morning. He states that he is feeling well today. He denies having any pain or discharge in his scrotal region. He states that his wound is dressed on a daily basis. His only complaint today is that he states that his stools have gotten slightly darker since admission. He expressed concern of possible bleeding due to his Xarelto, which she has been taking since June. He denies having any visible blood in his stool. He has not yet had a bowel movement this morning. He denies nausea, vomiting, and abdominal pain. - Constitutional Vitals: Temp Pulse Resp BP Pulse Ox 98.3 F 62 16 143/85 98 11/08/16 07:34 11/08/16 07:34 11/08/16 07:34 11/08/16 07:34 11/08/16 07:34 General appearance: Present: cooperative, A&O X 3, pleasant, obese, answers questions appropriately - Head Head exam: Present: atraumatic, normocephalic - Respiratory Additional comments: Clear to auscultation. No wheezes rales or rhonchi. - Cardiovascular Cardiovascular exam: Absent: diastolic murmur, gallop, rubs, systolic murmur Additional comments: Regular rate and rhythm. - GI/Abdominal GI/Abdominal exam: Present: normal bowel sounds, soft - Additional comments: Scrotal wound is currently dressed. No visible blood or discharge. Internal Medicine: Result - Labs CBC & Chem 7: 11/06/16 06:01 11/06/16 06:01 - ABG Interpretation ABG results: PT/INR, D-dimer PT 34.5 Seconds (9.4-12.1) H 11/03/16 20:00 - VTE Documentation of Mechanical Device: Graduated compression elastic hosiery Consult Discharge Plan - Plan Referrals: George Lim, CHURNER [Primary Care Provider] - <Ramesh Tucker - Last Filed: 11/08/16 19:01> Date of Encounter: 11/08/16 - Assessment and plan (1) Scrotal abscess Current Visit: Yes Status: Acute (2) Dvt femoral (deep venous thrombosis) Current Visit: No Status: Chronic Qualifiers: Chronicity: chronic Laterality: left Qualified Code(s): I82.512 - Chronic embolism and thrombosis of left femoral vein (3) Hydrocele in adult Current Visit: No Status: Chronic (4) Obesity (BMI 30-39.9) Current Visit: Yes Status: Chronic (5) Bacteremia due to Gram-positive bacteria Current Visit: Yes Status: Acute (6) Venous stasis dermatitis of both lower extremities Current Visit: Yes Status: Chronic - Constitutional Vitals: Temp Pulse Resp BP Pulse Ox 98.2 F 68 16 150/76 98 11/08/16 16:21 11/08/16 16:21 11/08/16 16:21 11/08/16 16:21 11/08/16 16:21 Internal Medicine: Result - Labs CBC & Chem 7: 11/06/16 06:01 11/06/16 06:01 - ABG Interpretation ABG results: PT/INR, D-dimer PT 34.5 Seconds (9.4-12.1) H 11/03/16 20:00 - Attending Attestation I examined this patient and my medical decision-making was reviewed with the Resident Physician on 11/08/16. I agree with the documented findings, disposition and treatment plan as described except to the extent set forth below. Mr. Arcos is currently admitted for acute scrotal abscess and bacteremia. He remains moderate to high risk due to potential for worsening infectious status. Mr. Arcos feels OK. No fever or chills. Concerned about stool being dark on Xarelto. No diarrhea or other new symptoms. Exam Alert. Comfortable Heart reg No wheeze I/P 1. Scrotal abscess 2. Check stool guiac 3. DVT Further diagnoses and plan as above.
[2016-11-08] MEDS: *HR* Rivaroxaban 10 MG TABLET PO SCH (12:12)
[2016-11-08] MEDS: Vancomycin 1,000 MG in D5% in Water 250 ML IVPB SCH (12:13)
--- NOTE | 2016-11-08 17:12 | Infectious Disease Progress No ---
Date of Encounter: 11/08/16 Time of Encounter: 17:08 - Assessment and Plan (1) Sepsis Current Visit: Yes Status: Acute Resolved Qualifiers: Sepsis type: sepsis due to unspecified organism Qualified Code(s): A41.9 - Sepsis, unspecified organism (2) Scrotal abscess Current Visit: Yes Status: Acute Causative organism was amp sensitive Enterococcus faecalis and Escherichia coli that is resistant to Unasyn. At this time we need an antibiotic that covers Enterococcus faecalis and we can do that with amoxicillin but I wanted to beta lactams I'll do amoxicillin plus Bactrim that should cover the Enterococcus faecalis and the Escherichia coli. Duration of treatment 10-14 days post discharge. Discussed with Dr. woods and he said Dr. Contreras will be seeing him. We'll follow-up when necessary. (3) Bacteremia due to Gram-positive bacteria Current Visit: Yes Status: Acute Contaminant - Subjective Interval history: Patient seen and examined, appears comfortable, laying in bed. No chest pain or shortness of breath no diarrhea. States over all is feeling okay. Infect Dis PN-Objective Data - Labs CBC & Chem 7: 11/06/16 06:01 11/06/16 06:01 Labs: Laboratory Results - last 24 hr 11/07/16 11/08/16 19:33 12:09 Stool Occult Blood Negative Vancomycin Trough 19.2 Cultures: Cultures 11/05/16 09:09 Blood Culture - Preliminary Peripheral Venipuncture No growth. Serology 11/08/16 Range/Units 12:09 Stool Occult Blood Negative (Negative) Exam - Constitutional Vitals: Temp Pulse Resp BP Pulse Ox 98.2 F 68 16 150/76 98 11/08/16 16:21 11/08/16 16:21 11/08/16 16:21 11/08/16 16:21 11/08/16 16:21 General appearance: no acute distress, no febrile - Head Head exam: Present: atraumatic, normocephalic - Respiratory Respiratory exam: Present: CTAB. Absent: wheezes - Cardiovascular Cardiovascular exam: Present: RRR, +S1, +S2 - Extremities Exam Extremities exam: Present: normal inspection. Absent: tenderness - VTE Documentation of Mechanical Device: Graduated compression elastic hosiery Consult Discharge Plan - Plan Referrals: George Lim, TIME STUDY ANALYST [Primary Care Provider] -
[2016-11-09 01:48] LABS: Basophils % 0.4 %; Eosinophils # 0.5 K/mcL (0.0-0.6); Hematocrit 35.8 % (37.5-50.1); Hemoglobin 11.3 g/dL (12.9-16.9); Immature Granulocytes % 1.9 % (0-4); Lymphocytes # 1.4 K/mcL (0.6-4.6); Lymphocytes % 15.8 %; Mean Corpuscular HGB Conc 31.6 g/dL (31.6-35.5); Mean Corpuscular Hemoglobin 28.8 pg (28.0-33.3); Mean Corpuscular Volume 91.3 fL (83.0-100.0); Mean Platelet Volume 8.3 fL (9.4-12.4); Monocytes # 0.7 K/mcL (0.0-1.3); Monocytes % 7.8 %; Neutrophils # 6.2 K/mcL (1.6-8.9); Platelet Count 369 K/mcL (140-400); Red Blood Count 3.92 M/mcL (4.19-5.50); Red Cell Distribution Width 14.1 % (11.5-14.5); Segmented Neutrophils % 69.1 %
[2016-11-09 02:01] LABS: BUN/Creatinine Ratio 18 (6-26); Blood Urea Nitrogen 17 mg/dL (8-26); Calcium 8.8 mg/dL (8.6-10.8); Carbon Dioxide 27 mEq/L (19-29); Chloride 104 mEq/L (98-109); Glucose 100 mg/dL (70-99); Osmolality,Calculated 290 (280-300); Potassium 4.3 mEq/L (3.5-4.5); Sodium 139 mEq/L (136-145); eGFR For African Americans > 60 (> 60); eGFR For Non-African Americans > 60 (> 60)
[2016-11-09] MEDS: Piperacillin/Tazobactam 3.375 GM in D5% in Water (Mini-Bag+) 100 ML IVPB SCH (03:56)
[2016-11-09 07:28] VITALS: BP 154/53
--- NOTE | 2016-11-09 09:22 | Urology Progress Note ---
Date of Encounter: 11/09/16 Time of Encounter: 09:20 - Assessment and Plan (1) Scrotal abscess Current Visit: Yes Status: Acute Assessment and plan: 68-year-old man status post incision and drainage of scrotal abscess after hydrocelectomy. 1. Continue wet-to-dry dressing changes twice per day. Pack wound until skin heals. 2. Appreciate infectious disease consultation. 3. He should follow-up with Dr. Contreras in 1-2 weeks for a wound check. 4. He can advance all activities as tolerated. He is okay to drive if he is no longer taking narcotic pain medication. Progress Note Narrative: 76-year-old man status post incision and drainage of scrotal abscess after hydrocelectomy. The incision and drainage was performed at bedside 5 days ago. He has been doing well. His pain is adequately controlled. Dressing changes have been going well for him. Objective Initial Vital Signs Temp Pulse Resp BP Pulse Ox 99.4 F 92 18 185/100 96 11/03/16 18:06 11/03/16 18:06 11/03/16 18:06 11/03/16 18:06 11/03/16 18:06 - General physical appearance Present: well developed, well nourished, no distress - Respiratory Present: normal respiratory effort - Abdomen Present: soft - Genitourinary Present: other (Scrotal skin is edematous and erythematous. There is an open wound within the left hemiscrotum. His dressing was changed. There is granulation tissue underneath. He tolerated the dressing change well.) - Labs 11/09/16 01:40 11/09/16 01:40 Diabetes panel 11/09/16 Range/Units 01:40 Sodium 139 (136-145) mEq/L Potassium 4.3 (3.5-4.5) mEq/L Chloride 104 (98-109) mEq/L Carbon Dioxide 27 (19-29) mEq/L BUN 17 (8-26) mg/dL Creatinine 0.94 (0.72-1.25) mg/dL Glucose 100 H (70-99) mg/dL Calcium 8.8 (8.6-10.8) mg/dL Calcium panel 11/09/16 Range/Units 01:40 Calcium 8.8 (8.6-10.8) mg/dL Pituitary panel 11/09/16 Range/Units 01:40 Sodium 139 (136-145) mEq/L Potassium 4.3 (3.5-4.5) mEq/L Chloride 104 (98-109) mEq/L Carbon Dioxide 27 (19-29) mEq/L BUN 17 (8-26) mg/dL Creatinine 0.94 (0.72-1.25) mg/dL Glucose 100 H (70-99) mg/dL Calcium 8.8 (8.6-10.8) mg/dL Adrenal panel 11/09/16 Range/Units 01:40 Sodium 139 (136-145) mEq/L Potassium 4.3 (3.5-4.5) mEq/L Chloride 104 (98-109) mEq/L Carbon Dioxide 27 (19-29) mEq/L BUN 17 (8-26) mg/dL Creatinine 0.94 (0.72-1.25) mg/dL Glucose 100 H (70-99) mg/dL Calcium 8.8 (8.6-10.8) mg/dL - VTE Documentation of Mechanical Device: Graduated compression elastic hosiery Consult Discharge Plan - Plan Referrals: George Lim, SITE PLANNER [Primary Care Provider] -
--- NOTE | 2016-11-09 09:39 | Discharge Summary ---
<Patric Osman - Last Filed: 11/09/16 13:32> Date of Encounter: 11/09/16 Time of Encounter: 09:00 - Discharge Diagnosis (1) Scrotal abscess Priority: Primary Status: Acute Comments: Amoxicillin and Bactrim for 14 days. (2) Obesity (BMI 30-39.9) Priority: Secondary Status: Chronic (3) Venous stasis dermatitis of both lower extremities Priority: Secondary Status: Chronic (4) Dvt femoral (deep venous thrombosis) Priority: Secondary Status: Chronic Comments: Continue Xarelto Qualifiers: Chronicity: chronic Laterality: left Qualified Code(s): I82.512 - Chronic embolism and thrombosis of left femoral vein (5) Hydrocele in adult Priority: Secondary Status: Chronic - Discharge Medications Prescriptions: Amoxicillin 875 mg PO BID #28 tablet Sulfamethoxazole/Trimeth DS [Bactrim DS] 1 each PO BID #28 tablet Home Medications: Rivaroxaban [Xarelto] 20 mg PO 1200 11/03/16 [History] Amoxicillin 875 mg PO BID #28 tablet 11/09/16 [Rx] Sulfamethoxazole/Trimeth DS [Bactrim DS] 1 each PO BID #28 tablet 11/09/16 [Rx] Allergies/Adverse Reactions: Allergies cephalexin [From Keflex] Adverse Reaction (Verified 09/14/16 13:26) Rash PATIENT STATES WAS ADVISED TO NOT TAKE PCN WELL SINCE ALLERGIC TO KEFLEX Date of admission: 11/03/16 22:27 Primary care physician: George Lim CNP Consults: 11/05/16 07:06 Consult to Roll Cutting Operator [CONS] Routine Reason for SW Consult: possible SNF for wound care? 11/05/16 08:15 Consult to Infectious Diseases [CONS] Routine Consulting Provider: [facility] Reason for Consult: Staph bacteremia. Call Completed: No 11/05/16 08:25 Consult to Invasive Line Access Team [CONS] Routine Reason for Consult: pulley maintainer atb Line Type: EPIV Discharging clinician: Patric Osman Anticipated date of discharge: 11/09/16 - Patient Status Disposition: Transfer SNF Condition: Good Functional capacity at discharge: independent ambulation Overall status at discharge: patient is progressing back to baseline - Discharge Instructions Follow Up With: George Lim CNP [Primary Care Provider] - (Within week of discharge) Pipe Contreras MD [Partnered Physician] - (We have requested a follow up appointment with Dr Contreras in 1-2 weeks. The office will call you with an appointment date and time. ) - Diet and Activity Activity: resume usual activities as tolerated Diet: advance to your usual diet Hospital course: Patient is a 76-year-old male who had a surgical procedure on his testicle at the beginning of September to treat hydrocele. One week prior to admission, patient began having pain and swelling in the area. At this time he contacted his urologist. His urologist placed on Levaquin at this time. His condition did not improve. Blood and wound cultures were obtained. On Tuesday, his temperature was 101 and his the scrotum continued to swell and became red and painful. At approximately 5 AM on 11/03/16, the left side of his scrotum began to drain blood and pus. At this time he presented to the emergency department. On admission his white blood cell count was 15.3 and lactate was 0.9. On admission, patient denied chest pain, shortness of breath, or having any other symptoms. He also denied having any difficulty with urination. he was started on vancomycin and clindamycin. A wound culture was taken, and was found to grow Escherichia coli resistant to Unasyn and enterococcus faecalis sensitive to ampicillin. Blood culture was also taken with peripheral venue puncture which revealed Staphylococcus epidermidis. 2 subsequent blood cultures were taken, 1 immediately after the first and the second on 11/05/16, both of which were negative. On 11/04/16, the area was drained of pus, a clot was removed from the wound, and the wound was packed with gauze. The wound was examined on a daily basis afterward, dressings and packing were removed and incision was probed to check for the return of purulence. Incision was then repacked. Patient was continued on vancomycin and Zosyn. On 11/06/16, patient began ambulating, and stated that he had no issues doing so. Over the course of his treatment, patient's condition remained stable. His pain began to subside shortly after his admission, and on subsequent days denied having any pain in his scrotal region. During his stay in the hospital patient expressed concern of darkening color of his stools, and expressed concern about the possibility of bleeding due to his Xarelto. To address this concern, guaiac stool was ordered, which was negative. Patient's stool color began to return to normal. Patient was prescribed amoxicillin and Bactrim to be taken 14 days post discharge. - Time Spent with Patient Total time spent providing and/or coordinating discharge services: Greater than 30 minutes - Constitutional Vitals: Temp Pulse Resp BP Pulse Ox 98.3 F 69 16 154/53 94 11/09/16 07:24 11/09/16 07:24 11/09/16 07:24 11/09/16 07:24 11/09/16 07:24 General appearance: Present: cooperative, A&O X 3, pleasant, obese, answers questions appropriately - Respiratory Respiratory exam: Present: CTAB. Absent: accessory muscle use, rales, rhonchi, wheezes - Cardiovascular Cardiovascular exam: Present: RRR, +S1, +S2. Absent: diastolic murmur, gallop, rubs, systolic murmur - exam: Present: scrotal swelling Additional comments: Scrotal abscess - VTE Documentation of Mechanical Device: Graduated compression elastic hosiery <Ramesh Tucker - Last Filed: 11/09/16 13:51> Date of Encounter: 11/09/16 - Discharge Diagnosis (1) Scrotal abscess Status: Acute (2) Dvt femoral (deep venous thrombosis) Status: Chronic Qualifiers: Chronicity: chronic Laterality: left Qualified Code(s): I82.512 - Chronic embolism and thrombosis of left femoral vein (3) Hydrocele in adult Status: Chronic (4) Obesity (BMI 30-39.9) Status: Chronic (5) Bacteremia due to Gram-positive bacteria Priority: Secondary Status: Resolved (6) Venous stasis dermatitis of both lower extremities Status: Chronic Date of admission: 11/03/16 22:27 Primary care physician: George Lim CNP Consults: 11/05/16 07:06 Consult to Roll Cutting Operator [CONS] Routine Reason for SW Consult: possible SNF for wound care? 11/05/16 08:15 Consult to Infectious Diseases [CONS] Routine Consulting Provider: [facility] Reason for Consult: Staph bacteremia. Call Completed: No 11/05/16 08:25 Consult to Invasive Line Access Team [CONS] Routine Reason for Consult: snf atb Line Type: EPIV Hospital course: Mr. Arcos is a 76 year old male - Time Spent with Patient Total time spent providing and/or coordinating discharge services: 38min - Constitutional Vitals: Temp Pulse Resp BP Pulse Ox 98.3 F 69 16 154/53 94 11/09/16 07:24 11/09/16 07:24 11/09/16 07:24 11/09/16 07:24 11/09/16 07:24 - Attending Attestation I examined this patient and my medical decision-making was reviewed with the Resident Physician on 11/09/16. I agree with the documented findings, disposition and treatment plan as described except to the extent set forth below. Mr. Arcos is doing OK. He is ready to go to SNF. Abx now PO. Wound care needed. Exam Alert. Comfortable Heart reg No wheeze No fever. Vitals stable Plan d/c to SNF today with PO abx.
--- NOTE | 2016-11-09 10:05 | Physician Discharge Referral ---
<Patric Osman - Last Filed: 11/09/16 10:02> ExtendedCare Referral Info Transfer To: [facility] Provider in Charge after Transfer: PCP Institutional Level of Care: Skilled - Diagnosis (1) Scrotal abscess Priority: Primary Status: Acute (2) Obesity (BMI 30-39.9) Priority: Secondary Status: Chronic (3) Venous stasis dermatitis of both lower extremities Priority: Secondary Status: Chronic (4) Dvt femoral (deep venous thrombosis) Priority: Secondary Status: Chronic (5) Hydrocele in adult Priority: Secondary Status: Chronic - Transfer Medications Prescriptions: Amoxicillin 875 mg PO BID #28 tablet Sulfamethoxazole/Trimeth DS [Bactrim DS] 1 each PO BID #28 tablet Home Medications: Rivaroxaban [Xarelto] 20 mg PO 1200 11/03/16 [History] Amoxicillin 875 mg PO BID #28 tablet 11/09/16 [Rx] Sulfamethoxazole/Trimeth DS [Bactrim DS] 1 each PO BID #28 tablet 11/09/16 [Rx] Allergies/Adverse Reactions: Allergies cephalexin [From Keflex] Adverse Reaction (Verified 09/14/16 13:26) Rash PATIENT STATES WAS ADVISED TO NOT TAKE PCN WELL SINCE ALLERGIC TO KEFLEX - Respiratory Orders None Smoking Cessation: Smoking cessation has been advised. For more information, call the [employer] Line at 2-034-CPFU-NOW. - Mobility Orders Ambulate - Rehabiliation Orders Rehab Potential: Good - Treatments Skin tear care topically daily PRN per policy - Diet Orders Regular CERTIFICATION: I certify that the transfer of the above named patient to an Extended Care Facility is necessary for the continuing treatment of the diagnosis listed. The above information is true and accurate reflection of patient's current condition. Confidential - Redisclosure prohibited without a patient's written consent. <Ramesh Tucker - Last Filed: 11/09/16 13:53> - Diagnosis (1) Scrotal abscess Status: Acute (2) Dvt femoral (deep venous thrombosis) Status: Chronic (3) Hydrocele in adult Status: Chronic (4) Obesity (BMI 30-39.9) Status: Chronic (5) Bacteremia due to Gram-positive bacteria Status: Resolved (6) Venous stasis dermatitis of both lower extremities Status: Chronic - Respiratory Orders Smoking Cessation: Smoking cessation has been advised. For more information, call the [place] Tobacco Quit Line at 6-282-NZDW-NOW. - Ancillary Orders May go on BENJI w/family/respon alliance party w/meds at nurse discretion PRN, May consult with Dentist, Mushroom [employer] Media Mixer, Lean Manufacturing Leader PRN - Advance Directives Code Status: Full Code - History and Physical History/Physical reviewed & approved w/add comments: I&D of scrotum - Rehabiliation Orders Rehab Orders: Evaluation for Physical Therapy, Evaluation for Occupational Therapy - Treatments List/Other: Wound care to scrotum CERTIFICATION: I certify that the transfer of the above named patient to an Extended Care Facility is necessary for the continuing treatment of the diagnosis listed. The above information is true and accurate reflection of patient's current condition. Confidential - Redisclosure prohibited without a patient's written consent.
[2016-11-09] MEDS ORDERED: Aminoglycoside Consult 1 EACH MC ONE (12:49)
[2016-11-09] MEDS: *HR* Rivaroxaban 10 MG TABLET PO SCH (12:49)
== END 2016-11-09 12:50 | DRG 872 ==
LOC: 3BNU 17:54 → EMEROO 17:54 → SUATTDRO 22:27 → 3BNU 22:29
PROVIDERS: ADMIT Internal Medicine; ATTEND Internal Medicine

== ENCOUNTER 2018-05-16 08:50 | Observation (INO) ==
--- NOTE | 2018-05-16 09:03 | Emergency Department Note ---
Disposition Clinical Impression: Cellulitis, Obesity (BMI 30-39.9), Lower extremity edema, History of DVT (deep vein thrombosis), On anticoagulant therapy, Frail elderly Disposition: Admitted As Inpatient Forms: ED Satisfaction Letter General Adult HPI - General Chief complaint: ED Extremity Problem,Nontraumatic Stated complaint: Left arm cellulitis Time Seen by Provider: 05/16/18 09:02 - History of Present Illness HPI Narrative: 78-year-old male reports emergency department with concerns regarding left arm swelling which has been present since last or Tuesday. He recalls no direct trauma or break in the skin. The patient had an ultrasound yesterday which was negative. He describes chronic venous thrombosis in the leg and has a hisory of Atrial Fibrillation he takes Xarelto. The patient denies chest pain shortness breath abdominal pain vomiting diarrhea or any other acute complaint or concern. He describes left arm and swelling and pain. He is not diabetic. He was sent in by his primary care physician for IV antibiotics and admission. Pain Scale: 8 - Related Data Home Medications Medication Instructions Recorded Confirmed Rivaroxaban [Xarelto] 20 mg PO 1200 11/03/16 11/03/16 Allergies Allergy/AdvReac Type Severity Reaction Status Date / Time cephalexin [From Keflex] AdvReac Rash Verified 09/14/16 13:26 All systems ED: reviewed and negative except as stated. Past Medical History - Past Medical History Medical history: Reports: atrial fibrillation, DVT Surgical history: Reports: other Psychiatric history: Reports: no psych history - Social History Smoking Status: Never smoker Smokeless Tobacco Status: No Alcohol use: Reports: none Drug use: Reports: none Physical Exam - General Limitations: no limitations General appearance: alert, in no apparent distress - Head Head exam: atraumatic, normocephalic, normal inspection - Eye Eye exam: Present: normal appearance, PERRL, EOMI - ENT ENT exam: normal exam, normal oropharynx, mucous membranes moist - Neck Neck exam: Present: normal inspection, full ROM, trachea midline - Chest Chest inspection: Present: symmetric chest wall rise. Absent: tenderness - Respiratory Respiratory exam: Present: normal lung sounds bilaterally. Absent: respiratory distress - Cardiovascular Cardiovascular exam: Present: regular rate, normal rhythm, normal heart sounds - Abdominal Exam Abdominal exam: Present: soft, Non-Tender, normal bowel sounds, other (Periumbilical hernia reducible and nontender.). Absent: tenderness, distention, guarding, rebound, rigidity - Extremities Exam Extremities exam: Present: full ROM, tenderness, normal capillary refill, other (Right upper and right lower extremity unremarkable on examination, left upper extremity shows significant redness of the hand and fullness and edema throughout the left upper extremity, no crepitance blistering blackening of the skin or fluctuance, left lower extremity shows chronic-appearing venous stasis changes and edema. All 4 extremities are warm and well perfused without cyanosis no evidence of neurovascular or neuromuscular compromise in any extremity.). Absent: joint swelling, calf tenderness - Expanded Lower Extremity Exam Neurovascular/Tendon exam: Present: normal capillary refill. Absent: pulse deficit, motor deficit, sensory deficit, tendon deficit, extremity cold to touch, pallor - Back Exam Back exam: Present: normal inspection, full ROM. Absent: tenderness, CVA tenderness (R), CVA tenderness (L) - Neurological Exam Neurological exam: Present: alert, oriented X3, CN II-XII intact. Absent: motor sensory deficit - Psychiatric Psychiatric exam: Present: normal affect, normal mood - Skin Skin exam: Present: warm, dry, intact. Absent: rash, cyanosis, diaphoresis, pallor Course Vital Signs Temperature 98.9 F 05/16/18 08:54 Pulse Rate 79 05/16/18 08:54 Respiratory Rate 17 05/16/18 08:54 Blood Pressure 152/82 05/16/18 08:54 O2 Sat by Pulse Oximetry 99 05/16/18 08:54 Temperature 98.9 F 05/16/18 09:00 Pulse Rate 75 05/16/18 10:30 Respiratory Rate 16 05/16/18 10:30 Blood Pressure 155/72 05/16/18 10:30 O2 Sat by Pulse Oximetry 98 05/16/18 10:30 Oxygen Delivery Oxygen Delivery Room Air Medical Decision Making - [facility] Narrative Medical decision making narrative: The patient's white count is normative, vital signs stable, he does have a notably elevated CRP and significant edema of the left upper extremity suggestive of cellulitis. CT shows no evidence of osteomyelitis or abscess. Based on the patient's age and apparent significant left upper extremity cellulitis I thought it would be appropriate to admit the patient to the hospital. I discussed the case with the hospitalist on-call who came to the emergency department, she has accepted the patient to her care. The patient appears to be stable and is pending admission. The patient is agreeable and his primary care physician is also recommended hospitalization. IV fluid and antibiotics were given. The patient does not appear to be frankly septic. - Lab Data Lab results reviewed: Yes I reviewed the patient's lab results. Result diagrams: 05/16/18 09:58 05/16/18 09:58 Lab Results 05/16/18 05/16/18 05/16/18 Range/Units 09:58 09:58 09:58 WBC 9.4 (4.3-11.1) K/mcL RBC 4.23 (4.19-5.50) M/mcL Hgb 12.7 L (12.9-16.9) g/dL Hct 40.0 (37.5-50.1) % MCV 94.6 (83.0-100.0) fL MCH 30.0 (28.0-33.3) pg MCHC 31.8 (31.6-35.5) g/dL RDW 14.1 (11.5-14.5) % Plt Count 199 (140-400) K/mcL MPV 9.2 L (9.4-12.4) fL Immature Gran % 0.3 (0-4) % Seg Neutrophils % 76.2 % Lymphocytes % 8.7 % Monocytes % 12.6 % Eosinophils % 1.8 % Basophils % 0.4 % Neutrophils # 7.2 (1.6-8.9) K/mcL Lymphocytes # 0.8 (0.6-4.6) K/mcL Monocytes # 1.2 (0.0-1.3) K/mcL Eosinophils # 0.2 (0.0-0.6) K/mcL Basophils # 0.0 (0.0-0.2) K/mcL Sodium 135 L (136-145) mEq/L Potassium 4.5 (3.5-5.1) mEq/L Chloride 103 (98-107) mEq/L Carbon Dioxide 24 (23-29) mEq/L BUN 18 (8-23) mg/dL Creatinine 0.80 (0.70-1.30) mg/dL Est GFR ( Amer) > 60 (> 60) Est GFR (Non-Af Amer) > 60 (> 60) BUN/Creatinine Ratio 23 (6-26) Glucose 127 H (70-105) mg/dL Calculated Osmolality 283 (280-300) Lactic Acid 2.3 H (0.5-2.2) mmol/L Calcium 9.0 (8.6-10.3) mg/dL Total Bilirubin 0.5 (0.3-1.0) mg/dL AST 21 (13-39) Units/L ALT 18 (7-52) Units/L Alkaline Phosphatase 62 (34-104) Units/L Troponin I < 0.03 (< 0.04) ng/mL C-Reactive Protein (Less than 10) mg/L Serum Total Protein 6.8 (6.4-8.9) g/dL Albumin 3.7 (3.5-5.7) g/dL Globulin 3.1 (2.4-3.5) g/dL Albumin/Globulin Ratio 1.2 (1.1-2.2) 05/16/18 Range/Units 09:58 WBC (4.3-11.1) K/mcL RBC (4.19-5.50) M/mcL Hgb (12.9-16.9) g/dL Hct (37.5-50.1) % MCV (83.0-100.0) fL MCH (28.0-33.3) pg MCHC (31.6-35.5) g/dL RDW (11.5-14.5) % Plt Count (140-400) K/mcL MPV (9.4-12.4) fL Immature Gran % (0-4) % Seg Neutrophils % % Lymphocytes % % Monocytes % % Eosinophils % % Basophils % % Neutrophils # (1.6-8.9) K/mcL Lymphocytes # (0.6-4.6) K/mcL Monocytes # (0.0-1.3) K/mcL Eosinophils # (0.0-0.6) K/mcL Basophils # (0.0-0.2) K/mcL Sodium (136-145) mEq/L Potassium (3.5-5.1) mEq/L Chloride (98-107) mEq/L Carbon Dioxide (23-29) mEq/L BUN (8-23) mg/dL Creatinine (0.70-1.30) mg/dL Est GFR ( Amer) (> 60) Est GFR (Non-Af Amer) (> 60) BUN/Creatinine Ratio (6-26) Glucose (70-105) mg/dL Calculated Osmolality (280-300) Lactic Acid (0.5-2.2) mmol/L Calcium (8.6-10.3) mg/dL Total Bilirubin (0.3-1.0) mg/dL AST (13-39) Units/L ALT (7-52) Units/L Alkaline Phosphatase (34-104) Units/L Troponin I (< 0.04) ng/mL C-Reactive Protein 175 H (Less than 10) mg/L Serum Total Protein (6.4-8.9) g/dL Albumin (3.5-5.7) g/dL Globulin (2.4-3.5) g/dL Albumin/Globulin Ratio (1.1-2.2) - Radiology Data Radiology results reviewed: Yes I reviewed the patient's radiology results.
[2018-05-16] MEDS ORDERED: 0.9 % Sodium Chloride 1,000 ML IVC ONE (09:05)
[2018-05-16] MEDS ORDERED: Isovue-370 500 ML INFUS..BTL IV ONE (09:12)
[2018-05-16] MEDS ORDERED: Clindamycin 600 MG/50 ML 600 MG/50 ML IV.SOLN IVPB STA (09:15)
[2018-05-16 10:09] LABS: Basophils % 0.4 %; Eosinophils # 0.2 K/mcL (0.0-0.6); Eosinophils % 1.8 %; Hemoglobin 12.7 g/dL (12.9-16.9); Immature Granulocytes % 0.3 % (0-4); Lymphocytes # 0.8 K/mcL (0.6-4.6); Lymphocytes % 8.7 %; Mean Corpuscular HGB Conc 31.8 g/dL (31.6-35.5); Mean Corpuscular Volume 94.6 fL (83.0-100.0); Mean Platelet Volume 9.2 fL (9.4-12.4); Monocytes # 1.2 K/mcL (0.0-1.3); Monocytes % 12.6 %; Neutrophils # 7.2 K/mcL (1.6-8.9); Platelet Count 199 K/mcL (140-400); Red Blood Count 4.23 M/mcL (4.19-5.50); Red Cell Distribution Width 14.1 % (11.5-14.5); Segmented Neutrophils % 76.2 %
[2018-05-16 10:33] LABS: Troponin I < 0.03 ng/mL (< 0.04)
[2018-05-16 10:57] LABS: BUN/Creatinine Ratio 23 (6-26); Blood Urea Nitrogen 18 mg/dL (8-23); Carbon Dioxide 24 mEq/L (23-29); Chloride 103 mEq/L (98-107); Glucose 127 mg/dL (70-105); Osmolality,Calculated 283 (280-300); Potassium 4.5 mEq/L (3.5-5.1); Sodium 135 mEq/L (136-145); eGFR For Non-African Americans > 60 (> 60)
[2018-05-16 10:58] LABS: Alanine Aminotransferase 18 Units/L (7-52); Alkaline Phosphatase 62 Units/L (34-104)
[2018-05-16 10:59] LABS: Albumin 3.7 g/dL (3.5-5.7)
[2018-05-16 11:16] LABS: Albumin/Globulin Ratio 1.2 (1.1-2.2); Aspartate Amino Transferase 21 Units/L (13-39); Bilirubin,Total 0.5 mg/dL (0.3-1.0); Globulin 3.1 g/dL (2.4-3.5); Total Protein 6.8 g/dL (6.4-8.9)
[2018-05-16 12:39] LABS: INR 1.7; Prothrombin Time 18.7 Seconds (9.4-12.1)
[2018-05-16 12:42] LABS: Activated Partial Thrombo Time 38.9 Seconds (26.0-36.0)
[2018-05-16] MEDS ORDERED: Acetaminophen 325 MG TABLET PO PRN (12:45)
[2018-05-16] MEDS ORDERED: Naloxone 0.4 MG/ML INJ IVP PRN (12:45)
[2018-05-16] MEDS ORDERED: *HR* HYDROcodone/Acet 5/325 mg TABLET PO PRN (12:45)
[2018-05-16] MEDS ORDERED: Vancomycin 1,750 MG in 0.9 % Sodium Chloride 250 ML IVPB SCH (13:00)
--- NOTE | 2018-05-16 13:27 | Internal Med History&Physical ---
Date of Encounter: 05/16/18 Time of Encounter: 12:53 Internal Medicine - H&P: HPI Chief complaint: left arm pain and swelling Admitted From: Home Plans for Post Hospital Care: Home History of present illness: Mr. Arcos is a 78 year old male who has history of left knee infection stated post a left knee replacement, DVT present to emergency room for left hand is swollen and the pain. He noticed left hands painful and the swelling 4 days ago, and then the pain progressively gotten worse swelling up to the upper arm. Pain is 8 out of 10 constant burning. He denies any injury and the insect bite no fever or chills. He presented to PCP office had duplex done yesterday which was negaitv efor DVT, then presented to his orthopedic surgery office today, his surgeon was concerned about cellulitis send him to the emergency room for admission for cellulitis treatment. Otherwise patient is alert oriented denies chest pain shortness of breath. He denies abdominal pain nausea vomiting diarrhea or constipation. In the emergency room he is afebrile normal white counts they did a blood culture 2 start clindamycin. Patient will be admitted for cellulitis and requiring IV antibiotics due to history of low TKR. Past Med Surg Social Fam HX - Past Medical History Medical history: atrial fibrillation, DVT Additional medical history: history of DVT. Hydrocele Psychiatric history: no psych history - Past Surgical History Surgical History: other Additional surgical history: scrotal sx - Social History Smoking Status: Never smoker Smokeless Tobacco Status: No Alcohol use: none Drug use: none - Family History Father Hx Family Cardiac Disorders: Yes Internal Medicine - H&P: Meds Rivaroxaban [Xarelto] 20 mg PO 1200 11/03/16 [History] Allergy/AdvReac Type Severity Reaction Status Date / Time cephalexin [From Keflex] AdvReac Rash Verified 09/14/16 13:26 All Systems PM: A 10-system review of systems was performed and is negative for pertinent findings except as documented above in the HPI. - Constitutional Vitals: Temp Pulse Resp BP Pulse Ox 98.9 F 75 16 155/72 98 05/16/18 09:00 05/16/18 10:30 05/16/18 10:30 05/16/18 10:30 05/16/18 10:30 General appearance: Present: A&O X 3, pleasant Exam: CONSTITUTIONAL: Patient appears as an age appropriate male well developed, in no acute distress. EYES Clear sclerae, bilateral pupils are equal, reactive to light and accommodation. Extraocular movements are intact RESPIRATORY: No accessory muscle use, bilateral clear to auscultation, no wheezing, no crackles/rales. CARDIOVASCULAR: Regular heart rate, normal S1 and S2, no murmurs GASTROINTESTINAL: bowel sounds present, soft, no tenderness. No hepatosplenomegaly. No bilateral CVA tenderness MUSCULOSKELETAL: Joints in normal range of motion, no clubbing, no edema, no cyanosis. Bilateral peripheral pulses 2+ LYMPHATIC no lymphadenopathy in neck, groin and axilla bilaterally, no thyromegaly. NEUROLOGIC: CN II to XII are grossly intact, no focal neurological deficit. Deep tendon reflexes 2+ bilaterally. Normal light touch sensation to upper and lower extremity PSYCHIATRIC: Oriented x3, with good insight, mood is euthymic. No hallucinations or delusions. SKIN: Skin warm and dry, no rashes, no open wound. Right hand swelling and redness, swelling up to above elbow Internal Med - H&P Results - Labs CBC & Chem 7: 05/16/18 09:58 05/16/18 09:58 Labs: Short CBC 05/16/18 Range/Units 09:58 WBC 9.4 (4.3-11.1) K/mcL Hgb 12.7 L (12.9-16.9) g/dL Hct 40.0 (37.5-50.1) % Plt Count 199 (140-400) K/mcL Neutrophils # 7.2 (1.6-8.9) K/mcL BMP 05/16/18 09:58 Sodium 135 L Potassium 4.5 Chloride 103 Carbon Dioxide 24 BUN 18 Creatinine 0.80 Glucose 127 H Calcium 9.0 Cardiac Enzymes 05/16/18 Range/Units 09:58 Troponin I < 0.03 (< 0.04) ng/mL Liver Function 05/16/18 Range/Units 09:58 Total Bilirubin 0.5 (0.3-1.0) mg/dL AST 21 (13-39) Units/L ALT 18 (7-52) Units/L Alkaline Phosphatase 62 (34-104) Units/L Albumin 3.7 (3.5-5.7) g/dL - Impressions ITS Impressions Upper Extremity CT 05/16/18 09:12 IMPRESSION: 1. Subcutaneous edema/inflammation with skin thickening of the hand dorsum. Please correlate with clinical symptoms of cellulitis. There is no evidence of soft tissue gas, abscess, or osteomyelitis. D/ / 05/16/2018 11:58:41 Kraig Boyer MD / Dodie Cleary Interpreting Provider: Kraig Boyer MD Chest X-Ray 05/16/18 10:42 IMPRESSION: 1. No active pulmonary disease. 2. Stable cardiomegaly without overt failure. 3. Question intra-articular loose bodies involving the right shoulder. D/ / Jacoby Foss MD / Jacoby Foss MD Interpreting Provider: Jacoby Foss MD - Assessment and plan (1) Cellulitis Current Visit: Yes Status: Acute Assessment and plan: CT scan showed Subcutaneous edema/inflammation with skin thickening of the hand dorsum. Please correlate with clinical symptoms of cellulitis. There is no evidence of soft tissue gas, abscess, or osteomyelitis. I called pharmacy[place] [id number] did well will give IV vancomycin and zosyn Qualifiers: Site of cellulitis: extremity Site of cellulitis of extremity: upper extremity Laterality: left Qualified Code(s): L03.114 - Cellulitis of left upper limb (2) Obesity (BMI 30-39.9) Current Visit: Yes Status: Chronic (3) Venous stasis dermatitis of both lower extremities Current Visit: Yes Status: Chronic (4) Dvt femoral (deep venous thrombosis) Current Visit: Yes Status: Chronic Assessment and plan: continue xarelto Qualifiers: Chronicity: chronic Laterality: left Qualified Code(s): I82.512 - Chronic embolism and thrombosis of left femoral vein (5) Left shoulder pain Current Visit: Yes Status: Acute Assessment and plan: will check XR, paitent denies right shoulder pain Qualifiers: Chronicity: acute Qualified Code(s): M25.512 - Pain in left shoulder - Time Spent With Patient Total time spent is greater than 50% in coordination of care (as documented) at patient's floor/unit and/or counseling patient: Greater than 35 minutes
[2018-05-16] MEDS: Piperacillin/Tazobactam 3.375 GM in 0.9 % Sodium Chloride Mini Bag 100 ML IVPB SCH ×3 (13:35→23:52)
--- NOTE | 2018-05-16 21:25 | Electrocardiograph Report ---
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
[2018-05-17] MEDS: Piperacillin/Tazobactam 3.375 GM in 0.9 % Sodium Chloride Mini Bag 100 ML IVPB SCH ×2 (07:24→18:13)
[2018-05-17 08:27] LABS: Basophils % 0.3 %; Eosinophils # 0.3 K/mcL (0.0-0.6); Eosinophils % 4.7 %; Hematocrit 38.2 % (37.5-50.1); Hemoglobin 12.4 g/dL (12.9-16.9); Immature Granulocytes % 0.3 % (0-4); Lymphocytes # 0.8 K/mcL (0.6-4.6); Lymphocytes % 12.9 %; Mean Corpuscular HGB Conc 32.5 g/dL (31.6-35.5); Mean Corpuscular Hemoglobin 30.1 pg (28.0-33.3); Mean Corpuscular Volume 92.7 fL (83.0-100.0); Mean Platelet Volume 8.8 fL (9.4-12.4); Monocytes # 0.7 K/mcL (0.0-1.3); Monocytes % 10.9 %; Neutrophils # 4.5 K/mcL (1.6-8.9); Platelet Count 210 K/mcL (140-400); Red Blood Count 4.12 M/mcL (4.19-5.50); Red Cell Distribution Width 14.1 % (11.5-14.5); Segmented Neutrophils % 70.9 %
[2018-05-17 08:42] LABS: BUN/Creatinine Ratio 16 (6-26); Blood Urea Nitrogen 13 mg/dL (8-23); Calcium 8.9 mg/dL (8.6-10.3); Carbon Dioxide 25 mEq/L (23-29); Chloride 104 mEq/L (98-107); Glucose 111 mg/dL (70-105); Osmolality,Calculated 285 (280-300); Sodium 137 mEq/L (136-145); eGFR For Non-African Americans > 60 (> 60)
[2018-05-17 10:06] LABS: Enterococcus by PCR Not Detected (Not Detect); Staphylococcus aureus by PCR Not Detected (Not Detect); Staphylococcus by PCR DETECTED (Not Detect); mecA Methicillin-Resist Gene DETECTED (Not Detect)
[2018-05-17 10:07] LABS: Acinetobacter baumannii by PCR Not Detected (Not Detect); Candida albicans by PCR Not Detected (Not Detect); Candida glabrata by PCR Not Detected (Not Detect); Candida krusei by PCR Not Detected (Not Detect); Candida parapsilosis by PCR Not Detected (Not Detect); Candida tropicalis by PCR Not Detected (Not Detect); Enterobacter cloacae Cmplx PCR Not Detected (Not Detect); Enterobacteriaceae by PCR Not Detected (Not Detect); Escherichia coli by PCR Not Detected (Not Detect); Klebsiella oxytoca by PCR Not Detected (Not Detect); Klebsiella pneumoniae by PCR Not Detected (Not Detect); Proteus by PCR Not Detected (Not Detect); Pseudomonas aeruginosa by PCR Not Detected (Not Detect); Serratia marcescens by PCR Not Detected (Not Detect); Streptococcus agalactiae(B)PCR Not Detected (Not Detect); Streptococcus by PCR Not Detected (Not Detect); Streptococcus pneumoniae PCR Not Detected (Not Detect); Streptococcus pyogenes (A) PCR Not Detected (Not Detect)
[2018-05-17] MEDS: *HR* Rivaroxaban 10 MG TABLET PO SCH (12:30)
--- NOTE | 2018-05-17 15:11 | Infectious Disease Consult ---
Date of Encounter: 05/17/18 Time of Encounter: 15:04 Assessment and Plan (1) Lymphedema of arm Status: Acute (2) Bacteremia due to Gram-positive bacteria Status: Resolved Assessment and plan: 1 out of 2 sets positive for coag-negative staph Likely a contaminant Repeat cultures 05/17/2018 pending (3) Cellulitis Status: Acute Assessment and plan: No SIRS criteria Really does not look impressive for cellulitis and I find it hard to believe kelin t he has cellulitis all the way from his fingers all the way to his shoulder. Venous Doppler 05/15/[address] left upper extremity reviewed It is possible but unlikely I guess If clinically doing better consider stopping vancomycin and Zosyn and de- escalate to maybe Bactrim and amoxicillin to finish a 7-10 day course Qualifiers: Site of cellulitis: extremity Site of cellulitis of extremity: upper extremity Laterality: left Qualified Code(s): L03.114 - Cellulitis of left upper limb Infectious Disease HPI - Data of Consult Patient: known to practice within the last 3 years Consult date: 05/17/18 Requesting Physician: Arnaldo Carmichael, Primary Care Provider: Fiorella Gooden CNP - Consult Narrative Reason for consult: "cellulitis,positive blood cultures" History of present illness: Mr. Arcos is a 78 year old male Patient is an 78-year-old gentleman with past medical history mentioned below including history of DVT and atrial fibrillation who is known to my service was seen back in 2017 for scrotal abscess With Escherichia coli and Enterococcus faecalis was treated appropriately returns to the hospital after pain and swelling in the left upper extremity. Apparently patient was in usual state of health until about 4 days prior to admission when he was fixing shelves her closet home and did significant physical movement of his arm and he started hav ing swelling and pain that started from the shoulder and radiated down. He also has significant swelling and at one point his arm was so swollen and his hand was swollen when he cannot close it. Patient had no associated fevers or chills. No other symptoms Since admission patient has been afebrile, no tachycardia and no tachypnea. Presenting labs reveal normal WBC and no bands. Lactic acid. Blood cultures obtained on 1 out of 2 sets on 05/16/2018 are positive for gram-positive cocci and PCR, a coag-negative staph CT upper extremity on the left reveals subcutaneous edema/inflammation with skin thickening of the hand dorsum. No evidence of soft tissue gas, abscess or osteomyelitis. Patient was started on vancomycin and Zosyn and he tells me his clinically doing much better. Currently patient appears comfortable. Route nontoxic review of systems unremarkable. Shoulder pain is present on passive movement but there is no tenderness or swelling or erythema of the joint itself. The swelling in the left upper extremity has improved significantly as per patient and even his skin looks like it was more puffy and now it is shrinking. CC: Arnaldo Carmichael, Past Med Surg Social Fam HX - Past Medical History Medical history: atrial fibrillation, DVT Additional medical history: history of DVT. Hydrocele Psychiatric history: no psych history - Past Surgical History Surgical History: other Additional surgical history: scrotal sx - Social History Smoking Status: Never smoker Smokeless Tobacco Status: No Alcohol use: none Drug use: none - Family History Father Hx Family Cardiac Disorders: Yes Infectious Disease-CN:Meds Rivaroxaban [Xarelto] 20 mg PO 1200 11/03/16 [History] Ascorbate Calcium [Vitamin C] 500 mg PO TID 05/16/18 [History] Cholecalciferol (D-3) [Vitamin D] 5,000 unit PO DAILY 05/16/18 [History] Cyanocobalamin (Vitamin B-12) [B-12] 500 mcg SL DAILY 05/16/18 [History] Niacinamide [Niacin] 500 mg PO BID 05/16/18 [History] Vitamin E (Dl,Tocopheryl Acet) [Vitamin E] 400 unit PO DAILY 05/16/18 [History] Allergy/AdvReac Type Severity Reaction Status Date / Time cephalexin [From Keflex] AdvReac Rash Verified 09/14/16 13:26 Review of systems: 10 point review of systems done, negative other for what mentioned in the history of present illness Exam - Constitutional Vitals: Temp Pulse Resp BP Pulse Ox 97.8 F 69 15 141/86 97 05/17/18 13:00 05/17/18 13:00 05/17/18 13:00 05/17/18 13:00 05/17/18 13:00 General appearance: cooperative, no acute distress, no febrile - Head Head exam: Present: atraumatic, normocephalic - Respiratory Respiratory exam: Present: CTAB. Absent: wheezes - Cardiovascular Cardiovascular exam: Present: RRR, +S1, +S2 - GI/Abdominal GI/Abdominal exam: Present: normal bowel sounds, soft. Absent: tenderness - Extremities Exam Additional comments: Pain and swelling in the left upper extremity with minimal erythema. Appears like lymphedema like picture - Neurological Exam Neurological exam: Present: alert, oriented X3 Infectious Disease CN: Results - Labs CBC & Chem 7: 05/17/18 08:12 05/17/18 08:12 Cultures: Cultures 05/17/18 11:27 Blood Culture - Preliminary Peripheral Venipuncture Culture is incubating and being continuously monitored for growth. Final report to follow. 05/17/18 11:27 Blood Culture - Preliminary Peripheral Venipuncture Culture is incubating and being continuously monitored for growth. Final report to follow. 05/16/18 09:57 Blood Culture - Preliminary Peripheral Venipuncture Gram Positive Cocci 05/16/18 09:58 Blood Culture - Preliminary Peripheral Venipuncture Culture is incubating and being continuously monitored for growth. Final report to follow. Serology: Serology 05/16/18 Range/Units 09:57 A. baumannii (PCR) Not Detected (Not Detect) Eileen albicans (PCR) Not Detected (Not Detect) C. glabrata (PCR) Not Detected (Not Detect) C. krusei (PCR) Not Detected (Not Detect) C. parapsilosis (PCR) Not Detected (Not Detect) C. tropicalis (PCR) Not Detected (Not Detect) Enterobacteriac sp PCR Not Detected (Not Detect) E. cloacae complex PCR Not Detected (Not Detect) Enterococcus sp PCR Not Detected (Not Detect) E. coli (PCR) Not Detected (Not Detect) H. influenzae (PCR) Not Detected (Not Detect) Klebsiella oxytoca PCR Not Detected (Not Detect) Klebsiella pneumoniae Not Detected (Not Detect) List. monocytogenes PCR Not Detected (Not Detect) N. meningitidis (PCR) Not Detected (Not Detect) Proteus species (PCR) Not Detected (Not Detect) Serratia marcescens PCR Not Detected (Not Detect) Staphylococcus sp PCR DETECTED A (Not Detect) Staph aureus (PCR) Not Detected (Not Detect) mecA-Methicil Res Gene DETECTED A (Not Detect) Streptococcus sp PCR Not Detected (Not Detect) Group A Strep DNA Not Detected (Not Detect) Group B Strep (PCR) Not Detected (Not Detect) Strep pneumoniae (PCR) Not Detected (Not Detect) P. aeruginosa (PCR) Not Detected (Not Detect) Yoko/B-Vanco Res Genes N/A (Not Detect) KPC (blaKPC) Detect PCR N/A (Not Detect) Consult Discharge Plan - Plan Referrals: Fiorella Gooden CNP [Primary Care Provider] - 05/23/18 12:30 pm
--- NOTE | 2018-05-17 16:32 | Internal Med Progress Note ---
Hospitalist Progress Note - Encounter Date of Encounter: 05/17/18 Time of Encounter: 16:29 - Subjective Interval History: Patient seen and examined at bedside. He states that he feels much better today. He feels like the swelling and pain in his left hand is improved. He does report that he continues to have left shoulder and elbow pain that is chron ic for him but is acutely worse. Reports pain with movement of his left shoulder and elbow. Denies any fever, chills, areas of drainage. - Exam Vitals: Temp Pulse Resp BP Pulse Ox 97.8 F 69 15 141/86 97 05/17/18 13:00 05/17/18 13:00 05/17/18 13:00 05/17/18 13:00 05/17/18 13:00 Exam: Gen.: Alert and oriented 3, no acute distress HEENT: Mucous Membranes moist, no oral lesions Heart: Regular rate and rhythm, no murmurs, rubs, gallops Lungs: Lungs clear to auscultation bilaterally, no rales, rhonchi, wheezes Extremities: Left upper extremity is warmer to touch compared to the right upper extremity with mild nonpitting edema. This is worse at the distal aspect of the extremity. Pain with active and passive range of motion of the shoulder and elbow joint but no pain with motion at the wrist or hand/fingers. No areas of fluid collection or fluctuance noted. No tenderness along the tendons. Musculoskeletal: No deformity noted at the left elbow or shoulder. No joint effusions noted. - Assessment and Plan (1) Cellulitis Current Visit: Yes Status: Acute Assessment and Plan: Left arm is warm and erythematous, particularly at the distal end. Upper extremity CT reviewed that showed inflammation in the dorsum of left hand, no evidence of gas or abscess. Currently on broad-spectrum antibiotics with vancomycin and Zosyn. Factious disease consulted and we appreciate their recommendations, likely de-escalate vancomycin and Zosyn to Bactrim and amoxicillin tomorrow. (2) Positive blood culture Current Visit: Yes Status: Acute Assessment and Plan: 1 out of 2 blood cultures positive for gram-positive cocci, Staphylococcus species, not staph aureus. Likely contaminant. Repeat blood cultures have been ordered. (3) Left shoulder pain Current Visit: Yes Status: Acute Assessment and Plan: Acute on chronic left shoulder pain. Patient states that his pain is been acutely worse over the last week. No evidence of fluid collection, abscess, joint effusion. Doubt septic arthritis. I did speak with the on-call orthopedic surgeon, Dr. Park, who states that he evaluated this patient yeste rday as an outpatient and did not feel like he needed any surgical intervention. We will hold off on formal orthopedic consult unless there is a change in the patient's status. Recommend outpatient follow-up for chronic shoulder pain. (4) History of DVT (deep vein thrombosis) Current Visit: Yes Status: Acute Assessment and Plan: No evidence of acute DVT. Continue Xarelto daily. DVT Prophylaxis: On Xarelto. - Time Spent with Patient Total time spent is greater than 50% in coordination of care (as documented) at patient's floor/unit and/or counseling patient: Internal Medicine: Result - Labs CBC & Chem 7: 05/17/18 08:12 05/17/18 08:12 Labs: Short CBC 05/17/18 Range/Units 08:12 WBC 6.4 (4.3-11.1) K/mcL Hgb 12.4 L (12.9-16.9) g/dL Hct 38.2 (37.5-50.1) % Plt Count 210 (140-400) K/mcL Neutrophils # 4.5 (1.6-8.9) K/mcL BMP 05/17/18 08:12 Sodium 137 Potassium 4.0 Chloride 104 Carbon Dioxide 25 BUN 13 Creatinine 0.83 Glucose 111 H Calcium 8.9 - ABG Interpretation ABG results: PT/INR, D-dimer PT 18.7 Seconds (9.4-12.1) H 05/16/18 09:57 - Impressions Impressions Upper Extremity CT 05/16/18 09:12 IMPRESSION: 1. Subcutaneous edema/inflammation with skin thickening of the hand dorsum. Please correlate with clinical symptoms of cellulitis. There is no evidence of soft tissue gas, abscess, or osteomyelitis. D/ / 05/16/2018 11:58:41 Kraig Boyer MD / Dodie Cleary Interpreting Provider: Kraig Boyer MD Consult Discharge Plan - Plan Referrals: Fiorella Gooden, RETENTION SPECIALIST [Primary Care Provider] - 05/23/18 12:30 pm (1) Cellulitis Qualifiers: Site of cellulitis: extremity Site of cellulitis of extremity: upper extremity Laterality: left Qualified Code(s): L03.114 - Cellulitis of left upper limb (3) Left shoulder pain Qualifiers: Chronicity: acute Qualified Code(s): M25.512 - Pain in left shoulder
[2018-05-17] MEDS ORDERED: Aminoglycoside Consult 1 EACH MC ONE (16:59)
[2018-05-17] MEDS ORDERED: *HR* Rivaroxaban 10 MG TABLET PO SCH (17:00)
[2018-05-18] MEDS: Piperacillin/Tazobactam 3.375 GM in 0.9 % Sodium Chloride Mini Bag 100 ML IVPB SCH ×2 (00:09→07:47)
[2018-05-18] MEDS: *HR* Rivaroxaban 10 MG TABLET PO SCH (12:09)
[2018-05-18 12:26] VITALS: BP 118/99
--- NOTE | 2018-05-18 13:32 | Discharge Summary ---
- NOTES TO OUTPATIENT PROVIDER Notes to Outpatient Provider: Patient was admitted for left upper limb cellulitis, CT negative for abscess or osteomyelitis. Was given IV vancomycin and Zosyn with clinical improvement and he will be discharged on oral Bactrim and amoxicillin as per ID recommendation. He was noted to have 1 out of 2 sets of blood cultures positive for GPC but after speaking to ID as well as microbiology, it was determined to be a contaminant. Repeat culture was NGTD at the time of discharge. Orders not resulted at time of discharge: Pending orders 05/16/18 09:58 Culture,Blood [BC] Stat 05/17/18 11:27 Culture,Blood [BC] Stat Date of Encounter: 05/18/18 Time of Encounter: 10:30 - Discharge Diagnosis (1) Cellulitis Priority: Primary Status: Acute Qualifiers: Site of cellulitis: extremity Site of cellulitis of extremity: upper extremity Laterality: left Qualified Code(s): L03.114 - Cellulitis of left upper limb (2) History of DVT (deep vein thrombosis) Priority: Secondary Status: Acute (3) Left shoulder pain Priority: Secondary Status: Acute Qualifiers: Chronicity: acute Qualified Code(s): M25.512 - Pain in left shoulder (4) Positive blood culture Priority: Secondary Status: Acute Hospital course: Mr. Arcos is a 78 year old male was admitted for left upper limb cellulitis, CT negative for abscess or osteomyelitis and doppler -ve for DVT. Was given IV vancomycin and Zosyn with clinical improvement and he will be discharged on oral Bactrim and amoxicillin as per ID recommendation. He was noted to have 1 out of 2 sets of blood cultures positive for GPC but after speaking to ID as well as microbiology, it was determined to be a contaminant. Repeat culture was NGTD at the time of discharge. Discharge discussed with: patient, nurse - Time Spent with Patient Total time spent providing and/or coordinating discharge services: 31 mins - Discharge Medications Prescriptions: Acetaminophen [Tylenol] 650 mg PO Q6HR PRN 3 Days #20 tablet PRN Reason: Pain Amoxicillin 875 mg PO BID 7 Days #14 tablet Sulfamethoxazole/Trimeth DS [Bactrim DS] 1 each PO BID 7 Days #14 tablet Home Medications: Rivaroxaban [Xarelto] 20 mg PO 1200 11/03/16 [History] Ascorbate Calcium [Vitamin C] 500 mg PO TID 05/16/18 [History] Cholecalciferol (D-3) [Vitamin D] 5,000 unit PO DAILY 05/16/18 [History] Cyanocobalamin (Vitamin B-12) [B-12] 500 mcg SL DAILY 05/16/18 [History] Niacinamide [Niacin] 500 mg PO BID 05/16/18 [History] Vitamin E (Dl,Tocopheryl Acet) [Vitamin E] 400 unit PO DAILY 05/16/18 [History] Acetaminophen [Tylenol] 650 mg PO Q6HR PRN 3 Days #20 tablet 05/18/18 [Rx] Amoxicillin 875 mg PO BID 7 Days #14 tablet 05/18/18 [Rx] Sulfamethoxazole/Trimeth DS [Bactrim DS] 1 each PO BID 7 Days #14 tablet 05/18/18 [Rx] Allergies/Adverse Reactions: Allergy/AdvReac Type Severity Reaction Status Date / Time cephalexin [From Keflex] AdvReac Rash Verified 09/14/16 13:26 Date of admission: 05/16/18 12:29 Primary care physician: Fiorella Gooden CNP Consults: 05/17/18 10:49 Consult to Infectious Diseases [CONS] Routine Consulting Provider: Infectious Disease [place] Reason for Consult: Cellulitis, positive blood cultures Time Notified: 10:50 Call Completed: Yes 05/18/18 11:16 Consult to Occupational Therapy [CONS] Routine Comment: Evaluate, develop and implement POC Reason for Consult: L upper extremity cellulitis, pt is left-handed as well now with limited mobility Does patient have active BEDREST order?: No Is patient medically & hemodynamically stable?: Yes 05/18/18 11:17 Consult to Physical Therapy [CONS] Routine Comment: Evaluate, develop and implement POC Reason for Consult: L upper extremity cellulitis, pt is left-handed as well now with limited mobility Does patient have active BEDREST order?: No Is patient medically & hemodynamically stable?: Yes - Constitutional Vitals: Temp Pulse Resp BP Pulse Ox 98.1 F 76 17 118/99 99 05/18/18 07:18 05/18/18 11:24 05/18/18 11:24 05/18/18 11:24 05/18/18 11:24 General appearance: Present: A&O X 3, pleasant Exam: Gen.: Alert and oriented 3, no acute distress Heart: Regular rate and rhythm, no murmurs, rubs, gallops Lungs: Lungs clear to auscultation bilaterally Extremities: Left upper extremity: erythema noted on medial aspect of L upper limb as well as armpit. No fluctuance appreciated. Improving ROM Musculoskeletal: No deformity noted at the left elbow or shoulder. No joint effusions noted. - Patient Status Disposition: Home, Self-Care Condition: Fair Functional capacity at discharge: independent ambulation Overall status at discharge: patient is progressing back to baseline - Discharge Instructions Instructions: Cellulitis (DC) Follow Up With: Fiorella Gooden CNP [Primary Care Provider] - 05/23/18 12:30 pm Additional Instructions: Complete 7 day course of bactrim and amoxicillin per ID Follow up with PCP - Diet and Activity Activity: as per physical therapy Diet: regular diet
--- NOTE | 2018-05-18 15:30 | Infectious Disease Progress No ---
Date of Encounter: 05/18/18 Time of Encounter: 13:00 - Assessment and Plan (1) Bacteremia due to Gram-positive bacteria Status: Resolved Causative organism: Staph species. Blood cultures drawn 05/16/18 are +1 out of 2 sets for a staph species. The PCR, but not staph aureus. Repeat blood cultures drawn 05/17/18 are pending 2 sets. True infection versus contaminant. Based on the clinical picture, most likely this is a contaminant as the patient has no sepsis criteria and is clinically not toxic. Even if this is a true infection, it is likely that he will do fine on oral antibiotics right negative staph typically tends to be not very virulent. Recommendations: Await repeat blood cultures. Continue Vancomycin IV. Pharmacy to dose. Goal trough ~15. Continue Zosyn 3.375 grams IV Q8H. Duration of treatment depends on the clinical picture. Can likely transition to oral Bactrim and Augmentin when ready for discharge to complete 14 day course. Monitor renal function and for drug toxicity and dose-adjust antibiotics. (2) Cellulitis Status: Acute Location: LUE. Causative organism: Unclear. Non-purulent. CT negative for abscess or septic arthritis. Clinically improved. Currently on IV Vanc and Zosyn. Qualifiers: Site of cellulitis: extremity Site of cellulitis of extremity: upper extremity Laterality: left Qualified Code(s): L03.114 - Cellulitis of left upper limb (3) Lymphedema of arm Status: Acute - Subjective Interval history: Since seen examined. No acute events noted overnight. Patient states overall he feels better today. Denies fevers, chills, rigors. Denies chest pain, shortness of breath, or cough. Denies nausea, vomiting, diarrhea, or constipation. Denies abdominal pain, urinary complaints, or appetite changes. Reports improvement in the pain and swelling and erythema to the left upper extremity. Denies any oral thrush or new skin lesions. Infect Dis PN-Objective Data - Labs CBC & Chem 7: 05/17/18 08:12 05/17/18 08:12 Labs: Laboratory Results - last 24 hr 05/17/18 05/17/18 05/17/18 07:46 12:54 16:27 POC Glucose 106 H 142 H 125 H Vancomycin Trough 05/17/18 21:50 POC Glucose Vancomycin Trough 14 H Cultures: Cultures 05/17/18 11:27 Blood Culture - Preliminary Peripheral Venipuncture Culture is incubating and being continuously monitored for growth. Final report to follow. 05/17/18 11:27 Blood Culture - Preliminary Peripheral Venipuncture Culture is incubating and being continuously monitored for growth. Final report to follow. 05/16/18 09:57 Blood Culture - Preliminary Peripheral Venipuncture Gram Positive Cocci 05/16/18 09:58 Blood Culture - Preliminary Peripheral Venipuncture Culture is incubating and being continuously monitored for growth. Final report to follow. Serology 05/16/18 Range/Units 09:57 A. baumannii (PCR) Not Detected (Not Detect) Eileen albicans (PCR) Not Detected (Not Detect) C. glabrata (PCR) Not Detected (Not Detect) C. krusei (PCR) Not Detected (Not Detect) C. parapsilosis (PCR) Not Detected (Not Detect) C. tropicalis (PCR) Not Detected (Not Detect) Enterobacteriac sp PCR Not Detected (Not Detect) E. cloacae complex PCR Not Detected (Not Detect) Enterococcus sp PCR Not Detected (Not Detect) E. coli (PCR) Not Detected (Not Detect) H. influenzae (PCR) Not Detected (Not Detect) Klebsiella oxytoca PCR Not Detected (Not Detect) Klebsiella pneumoniae Not Detected (Not Detect) List. monocytogenes PCR Not Detected (Not Detect) N. meningitidis (PCR) Not Detected (Not Detect) Proteus species (PCR) Not Detected (Not Detect) Serratia marcescens PCR Not Detected (Not Detect) Staphylococcus sp PCR DETECTED A (Not Detect) Staph aureus (PCR) Not Detected (Not Detect) mecA-Methicil Res Gene DETECTED A (Not Detect) Streptococcus sp PCR Not Detected (Not Detect) Group A Strep DNA Not Detected (Not Detect) Group B Strep (PCR) Not Detected (Not Detect) Strep pneumoniae (PCR) Not Detected (Not Detect) P. aeruginosa (PCR) Not Detected (Not Detect) Yoko/B-Vanco Res Genes N/A (Not Detect) KPC (blaKPC) Detect PCR N/A (Not Detect) Exam - Constitutional Vitals: Temp Pulse Resp BP Pulse Ox 98.1 F 76 17 118/99 99 05/18/18 07:18 05/18/18 11:24 05/18/18 11:24 05/18/18 11:24 05/18/18 11:24 General appearance: cooperative, no acute distress, obese - Head Head exam: Present: atraumatic, normal inspection, normocephalic - Eye Eye exam: Present: EOMI, normal appearance, PERRL Pupils: Present: normal accommodation - ENT ENT exam: Present: mucous membranes moist - Neck Neck exam: Present: normal inspection - Respiratory Respiratory exam: Present: CTAB. Absent: rales, respiratory distress, rhonchi, wheezes - Cardiovascular Cardiovascular exam: Present: RRR, +S1, +S2 - GI/Abdominal GI/Abdominal exam: Present: distended, normal bowel sounds, soft. Absent: tenderness - Extremities Exam Extremities exam: Absent: normal inspection (Mild erythema and edema noted to the left upper extremity from the hand to the elbow. Range of motion of the left shoulder and elbow are intact. Left hand range of motion minimally impaired due to swelling.) - Neurological Exam Neurological exam: Present: alert, oriented X3, no focal deficits - Psychiatric Psychiatric exam: Present: normal affect, normal mood - Skin Skin exam: Present: dry, intact, normal color, warm Consult Discharge Plan - Plan Instructions: Cellulitis (DC) Additional Instructions: Complete 7 day course of bactrim and amoxicillin per ID Follow up with PCP Referrals: Fiorella Goodne RESOURCE MANAGEMENT PLANNER [Primary Care Provider] - 05/23/18 12:30 pm Prescriptions: RX: Acetaminophen [Tylenol] 650 mg PO Q6HR PRN 3 Days #20 tablet PRN Reason: Pain RX: Amoxicillin 875 mg PO BID 7 Days #14 tablet Sulfamethoxazole/Trimeth DS [Bactrim DS] 1 each PO BID 7 Days #14 tablet - Attending Attestation I examined this patient and my medical decision-making was reviewed with the Resident Physician. I agree with the documented findings, disposition and treatment plan as described except to the extent set forth below.
[2018-05-18] MEDS ORDERED: Niacin (24 HR) 500 MG TAB.ER.24H PO SCH (21:00)
[2018-05-19] MEDS ORDERED: Cholecalciferol (D-3) 1,000 UNIT TABLET PO SCH (09:00)
[2018-05-19] MEDS ORDERED: Cyanocobalamin (B-12) 1,000 MCG TABLET PO SCH (09:00)
== END 2018-05-18 17:00 | disposition home or self-care (01) ==
LOC: 2SOUTHHOLD 08:50 → EMEROOARM 08:50 → SUATTDRO 12:29 → 2SOUTHHOLD 13:13
PROVIDERS: ADMIT Hospitalist; ATTEND Internal Medicine

== ENCOUNTER 2018-06-07 14:54 | Inpatient (IN) ==
--- NOTE | 2018-06-07 15:45 | Emergency Department Note ---
Disposition Clinical Impression: Cellulitis Qualifiers: Site of cellulitis: extremity Site of cellulitis of extremity: upper extremity Laterality: left Qualified Code(s): L03.114 - Cellulitis of left upper limb Disposition: Admitted As Inpatient Time of Disposition: 20:13 General Adult HPI - General Chief complaint: ED Extremity Problem,Nontraumatic Stated complaint: Left arm infection Time Seen by Provider: 06/07/18 15:11 Source: patient Limitations: no limitations Nursing Notes Reviewed: Yes Vital Signs Reviewed: Yes - History of Present Illness HPI Narrative: Patient is an 78-year-old male who presented from his primary care physician's office due to a worsening right upper extremity cellulitis. Patient states 2 weeks ago he came to the ED swelling of his hand wrist elbow up to his shoulder and was hospitalized for this. Patient was sent home on Bactrim for cellulitis. he is followed by his primary care physician twice. And states that this is now getting worse. And suggested that he be admitted for IV antibiotics since oral was no longer working to control the infection. Patient states he has warmth and swelling from his wrist to above his elbow. Patient says he has decreased movement. Some mild pain associated with it. Associated some nausea associated numbness tingling. No loss of sensation. has decreased strength. Patient does not know what brought this on. No cuts or injuries. 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 and a lot of repetitive motion of a screwing action Pain Scale: 9 - Related Data Home Medications Medication Instructions Recorded Confirmed Rivaroxaban [Xarelto] 20 mg PO 1200 11/03/16 05/16/18 Ascorbate Calcium [Vitamin C] 500 mg PO TID 05/16/18 05/16/18 Cholecalciferol (D-3) [Vitamin D] 5,000 unit PO DAILY 05/16/18 05/16/18 Cyanocobalamin (Vitamin B-12) 500 mcg SL DAILY 05/16/18 05/16/18 [B-12] Niacinamide [Niacin] 500 mg PO BID 05/16/18 05/16/18 Vitamin E (Dl,Tocopheryl Acet) 400 unit PO DAILY 05/16/18 05/16/18 [Vitamin E] Allergies Allergy/AdvReac Type Severity Reaction Status Date / Time cephalexin [From Keflex] AdvReac Rash Verified 09/14/16 13:26 Constitutional: Denies: fever, chills Eyes: Denies: vision change ENT ED: Denies: congestion Cardiovascular: Denies: chest pain, palpitations, dyspnea on exertion Respiratory: Denies: cough, dyspnea Gastrointestinal: Denies: abdominal pain, nausea, vomiting, diarrhea Integumentary: Denies: rash Neurological: Reports: headache. Denies: weakness Psychiatric: Denies: anxiety Endocrine: Denies: fatigue Allergic/Immunologic: Denies: facial swelling Past Medical History - Past Medical History Medical history: Reports: DVT Surgical history: Reports: other Psychiatric history: Reports: no psych history - Social History Smoking Status: Never smoker Smokeless Tobacco Status: No Alcohol use: Reports: none Drug use: Reports: none Physical Exam - General Limitations: no limitations General appearance: alert, in no apparent distress - Head Head exam: atraumatic, normocephalic - Chest Chest inspection: Present: normal inspection, symmetric chest wall rise. Absent: tenderness - Respiratory Respiratory exam: Present: normal lung sounds bilaterally. Absent: respiratory distress, wheezes, accessory muscle use - Cardiovascular Cardiovascular exam: Present: regular rate, normal rhythm, normal heart sounds, +S1, +S2. Absent: bradycardia, tachycardia, systolic murmur, diastolic murmur - Extremities Exam Extremities exam: Present: other (Patient has left-sided erythema swelling and warmth of his left the patient from his hand to 2 inches above his elbow. Patient has decreased strength of his left side compared to his right. Active Range of motion is decreased of wrist shoulder and elbow. Passive range of motion is normal. Active range of motion likely decreased due to pain. Patient has mild tenderness to palpation of the affected area) - Psychiatric Psychiatric exam: Present: normal affect, normal mood - Skin Skin exam: Present: other (Erythema of left upper extremity) Course Vital Signs Temperature 98.1 F 06/07/18 15:03 Pulse Rate 83 06/07/18 15:03 Respiratory Rate 16 06/07/18 15:03 Blood Pressure 188/78 06/07/18 15:03 O2 Sat by Pulse Oximetry 97 06/07/18 15:03 Temperature 101.3 F H 06/07/18 18:05 Pulse Rate 83 06/07/18 15:03 Respiratory Rate 19 06/07/18 19:36 Blood Pressure 176/72 06/07/18 19:36 O2 Sat by Pulse Oximetry 97 06/07/18 15:03 Oxygen Delivery Oxygen Delivery Room Air Medical Decision Making - MDM Narrative Medical decision making narrative: CBC and BMP lactic acid are ordered. Patient was placed on vancomycin. And 80. Patient will need admission per PCPs request. CT hand performed on 8 this month found Subcutaneous edema/inflammation with skin thickening of the hand dorsum. Please correlate with clinical symptoms of cellulitis. Dr. Maza accepts for admission - Lab Data Result diagrams: 06/07/18 15:39 06/07/18 15:39 Lab Results 06/07/18 06/07/18 06/07/18 Range/Units 15:39 15:39 15:45 WBC 7.3 (4.3-11.1) K/mcL RBC 4.01 L (4.19-5.50) M/mcL Hgb 11.7 L (12.9-16.9) g/dL Hct 36.8 L (37.5-50.1) % MCV 91.8 (83.0-100.0) fL MCH 29.2 (28.0-33.3) pg MCHC 31.8 (31.6-35.5) g/dL RDW 14.5 (11.5-14.5) % Plt Count 237 (140-400) K/mcL MPV 8.6 L (9.4-12.4) fL Immature Gran % 0.4 (0-4) % Seg Neutrophils % 74.5 % Lymphocytes % 10.5 % Monocytes % 11.8 % Eosinophils % 2.5 % Basophils % 0.3 % Neutrophils # 5.4 (1.6-8.9) K/mcL Lymphocytes # 0.8 (0.6-4.6) K/mcL Monocytes # 0.9 (0.0-1.3) K/mcL Eosinophils # 0.2 (0.0-0.6) K/mcL Basophils # 0.0 (0.0-0.2) K/mcL Platelet Estimate Normal (Normal) Microcytosis Present A (Not Present) Sodium 137 (136-145) mEq/L Potassium 4.3 (3.5-5.1) mEq/L Chloride 102 (98-107) mEq/L Carbon Dioxide 28 (23-29) mEq/L BUN 17 (8-23) mg/dL Creatinine 1.03 (0.70-1.30) mg/dL Est GFR ( Amer) > 60 (> 60) Est GFR (Non-Af Amer) > 60 (> 60) BUN/Creatinine Ratio 17 (6-26) Glucose 107 H (70-105) mg/dL Calculated Osmolality 286 (280-300) Lactic Acid 1.3 (0.5-2.2) mmol/L Calcium 9.1 (8.6-10.3) mg/dL
[2018-06-07 15:59] LABS: Basophils % 0.3 %; Eosinophils # 0.2 K/mcL (0.0-0.6); Eosinophils % 2.5 %; Hematocrit 36.8 % (37.5-50.1); Hemoglobin 11.7 g/dL (12.9-16.9); Immature Granulocytes % 0.4 % (0-4); Lymphocytes # 0.8 K/mcL (0.6-4.6); Lymphocytes % 10.5 %; Mean Corpuscular HGB Conc 31.8 g/dL (31.6-35.5); Mean Corpuscular Hemoglobin 29.2 pg (28.0-33.3); Mean Corpuscular Volume 91.8 fL (83.0-100.0); Mean Platelet Volume 8.6 fL (9.4-12.4); Monocytes # 0.9 K/mcL (0.0-1.3); Monocytes % 11.8 %; Neutrophils # 5.4 K/mcL (1.6-8.9); Platelet Count 237 K/mcL (140-400); Red Blood Count 4.01 M/mcL (4.19-5.50); Red Cell Distribution Width 14.5 % (11.5-14.5); Segmented Neutrophils % 74.5 %
--- NOTE | 2018-06-07 16:15 | Emergency Department Note ---
Disposition Clinical Impression: Cellulitis Qualifiers: Site of cellulitis: extremity Site of cellulitis of extremity: upper extremity Laterality: left Qualified Code(s): L03.114 - Cellulitis of left upper limb Disposition: Admitted As Inpatient General Adult HPI - General Chief complaint: ED Extremity Problem,Nontraumatic Stated complaint: Left arm infection Time Seen by Provider: 06/07/18 15:11 Source: patient Limitations: no limitations - History of Present Illness Pain Scale: 9 - Related Data Home Medications Medication Instructions Recorded Confirmed Rivaroxaban [Xarelto] 20 mg PO 1200 11/03/16 05/16/18 Ascorbate Calcium [Vitamin C] 500 mg PO TID 05/16/18 05/16/18 Cholecalciferol (D-3) [Vitamin D] 5,000 unit PO DAILY 05/16/18 05/16/18 Cyanocobalamin (Vitamin B-12) 500 mcg SL DAILY 05/16/18 05/16/18 [B-12] Niacinamide [Niacin] 500 mg PO BID 05/16/18 05/16/18 Vitamin E (Dl,Tocopheryl Acet) 400 unit PO DAILY 05/16/18 05/16/18 [Vitamin E] Allergies Allergy/AdvReac Type Severity Reaction Status Date / Time cephalexin [From Keflex] AdvReac Rash Verified 09/14/16 13:26 Constitutional: Denies: fever, chills Eyes: Denies: vision change Cardiovascular: Denies: chest pain, palpitations, dyspnea on exertion Respiratory: Denies: cough, dyspnea Gastrointestinal: Denies: abdominal pain, nausea, vomiting, diarrhea Integumentary: Denies: rash Neurological: Reports: headache. Denies: weakness Past Medical History - Past Medical History Medical history: Reports: DVT Surgical history: Reports: other Psychiatric history: Reports: no psych history - Social History Smoking Status: Never smoker Smokeless Tobacco Status: No Alcohol use: Reports: none Drug use: Reports: none Physical Exam - General Limitations: no limitations General appearance: alert, in no apparent distress Course Vital Signs Temperature 98.1 F 06/07/18 15:03 Pulse Rate 83 06/07/18 15:03 Respiratory Rate 16 06/07/18 15:03 Blood Pressure 188/78 06/07/18 15:03 O2 Sat by Pulse Oximetry 97 06/07/18 15:03 Temperature 101.3 F H 06/07/18 18:05 Pulse Rate 83 06/07/18 15:03 Respiratory Rate 19 06/07/18 19:36 Blood Pressure 176/72 06/07/18 19:36 O2 Sat by Pulse Oximetry 97 06/07/18 15:03 Oxygen Delivery Oxygen Delivery Room Air Medical Decision Making - Lab Data Result diagrams: 06/07/18 15:39 06/07/18 15:39 Lab Results 06/07/18 06/07/18 06/07/18 Range/Units 15:39 15:39 15:45 WBC 7.3 (4.3-11.1) K/mcL RBC 4.01 L (4.19-5.50) M/mcL Hgb 11.7 L (12.9-16.9) g/dL Hct 36.8 L (37.5-50.1) % MCV 91.8 (83.0-100.0) fL MCH 29.2 (28.0-33.3) pg MCHC 31.8 (31.6-35.5) g/dL RDW 14.5 (11.5-14.5) % Plt Count 237 (140-400) K/mcL MPV 8.6 L (9.4-12.4) fL Immature Gran % 0.4 (0-4) % Seg Neutrophils % 74.5 % Lymphocytes % 10.5 % Monocytes % 11.8 % Eosinophils % 2.5 % Basophils % 0.3 % Neutrophils # 5.4 (1.6-8.9) K/mcL Lymphocytes # 0.8 (0.6-4.6) K/mcL Monocytes # 0.9 (0.0-1.3) K/mcL Eosinophils # 0.2 (0.0-0.6) K/mcL Basophils # 0.0 (0.0-0.2) K/mcL Platelet Estimate Normal (Normal) Microcytosis Present A (Not Present) Sodium 137 (136-145) mEq/L Potassium 4.3 (3.5-5.1) mEq/L Chloride 102 (98-107) mEq/L Carbon Dioxide 28 (23-29) mEq/L BUN 17 (8-23) mg/dL Creatinine 1.03 (0.70-1.30) mg/dL Est GFR ( Amer) > 60 (> 60) Est GFR (Non-Af Amer) > 60 (> 60) BUN/Creatinine Ratio 17 (6-26) Glucose 107 H (70-105) mg/dL Calculated Osmolality 286 (280-300) Lactic Acid 1.3 (0.5-2.2) mmol/L Calcium 9.1 (8.6-10.3) mg/dL Attestation Statement - Attestation Attestation: I examined this patient and my medical decision-making was reviewed with the [employer]/PA/Advanced Practice Nurse/Resident Physician. I agree with the documented findings, disposition and treatment plan as described except to the extent set forth below. The patient has left elbow swelling and there is some minimal erythema as well as warmth over the left elbow and specifically much more swelling on the right- hand side. Of note there is full passive range of motion and I do not fact septic arthritis. The patient is artery taking Bactrim so is treatment failure cellulitis and he was actually treated for cellulitis recently here as an inpatient. Patient will be started on vancomycin, labs and admitted to the hospital and the patient was sent here by the primary care physician for admission. He is not septic in appearance. 1615
[2018-06-07 16:19] LABS: BUN/Creatinine Ratio 17 (6-26); Blood Urea Nitrogen 17 mg/dL (8-23); Calcium 9.1 mg/dL (8.6-10.3); Carbon Dioxide 28 mEq/L (23-29); Chloride 102 mEq/L (98-107); Glucose 107 mg/dL (70-105); Osmolality,Calculated 286 (280-300); Potassium 4.3 mEq/L (3.5-5.1); Sodium 137 mEq/L (136-145); eGFR For Non-African Americans > 60 (> 60)
[2018-06-07 16:51] LABS: Microcytosis Present (Not Present); Platelet Estimate Normal (Normal)
--- NOTE | 2018-06-07 17:46 | Internal Med History&Physical ---
Date of Encounter: 06/07/18 Time of Encounter: 17:45 Internal Medicine - H&P: HPI History of present illness: Mr. Arcos is a 78 year old male with history of left lower extremity DVT on Xarelto, history of left knee infection after a left knee replacement, PVD, presents for worsening left arm infection. Patient was admitted to hospital about 3 weeks ago for cellulitis of the left upper extremity. During that admission, he did have positive blood culture for Staph hominis in 1 of 2 sets t hat is thought to be contaminate. He was discharged home on Bactrim in stable condition. Patient states that his arm continued to improve for 2-3 days after being discharged but at a certain point, would not improve and then slowly got worse. He then saw his PCP who told him he should come in for IV antibiotics. At bedside patient has rigors and states he does not know why is shaking so much. HR is in 148 on the monitor, with normal BP. He is conversing with me normally. There is generalized left arm pain and edema, and is very tender to the point that he has difficulty moving the arm on his own. He denies fevers but admits to chills today. No other areas of localized pain, swelling, or edema. Labs done in ED showed normal WBC, normal lactic acid level. Was afebrile during my examination with BP elevated 188/78 normal heart rate. Past Med Surg Social Fam HX - Past Medical History Medical history: DVT Additional medical history: Hydrocele Psychiatric history: no psych history - Past Surgical History Surgical History: other Additional surgical history: scrotal sx. knee replacement. dental surgery - Social History Smoking Status: Never smoker Smokeless Tobacco Status: No Alcohol use: none Drug use: none - Family History Father Hx Family Cardiac Disorders: Yes Internal Medicine - H&P: Meds Rivaroxaban [Xarelto] 20 mg PO 1200 11/03/16 [History] Ascorbate Calcium [Vitamin C] 500 mg PO TID 05/16/18 [History] Cholecalciferol (D-3) [Vitamin D] 5,000 unit PO DAILY 05/16/18 [History] Cyanocobalamin (Vitamin B-12) [B-12] 500 mcg SL DAILY 05/16/18 [History] Niacinamide [Niacin] 500 mg PO BID 05/16/18 [History] Vitamin E (Dl,Tocopheryl Acet) [Vitamin E] 400 unit PO DAILY 05/16/18 [History] Allergy/AdvReac Type Severity Reaction Status Date / Time cephalexin [From Keflex] AdvReac Rash Verified 09/14/16 13:26 All Systems PM: A 10-system review of systems was performed and is negative for pertinent findings except as documented above in the HPI. - Constitutional Vitals: Temp Pulse Resp BP Pulse Ox 98.1 F 83 16 188/78 97 06/07/18 15:03 06/07/18 15:03 06/07/18 15:03 06/07/18 15:03 06/07/18 15:03 Exam: Gen: rigors observed, AAO x3 Skin: warm, dry Head: NC/AT ENT: Mucus membranes dry CVS: tachycardic, no mrg Lungs: CTAB Extremities: Left axilla with diffuse erythema and tenderness. Shoulder, elbow, and hand active ROM is limited due to pain, but it is normal with passive ROM. Left elbow is tender and warm to touch with erythema. Right arm also has axillary erythema, but no gross deformities of the upper extremity. Internal Med - H&P Results - Labs CBC & Chem 7: 06/07/18 15:39 06/07/18 15:39 Labs: Short CBC 06/07/18 Range/Units 15:39 WBC 7.3 (4.3-11.1) K/mcL Hgb 11.7 L (12.9-16.9) g/dL Hct 36.8 L (37.5-50.1) % Plt Count 237 (140-400) K/mcL Neutrophils # 5.4 (1.6-8.9) K/mcL BMP 06/07/18 15:39 Sodium 137 Potassium 4.3 Chloride 102 Carbon Dioxide 28 BUN 17 Creatinine 1.03 Glucose 107 H Calcium 9.1 - Assessment and plan (1) Cellulitis Current Visit: Yes Status: Acute Assessment and plan: Failed outpatient therapy after patient admitted for cellulitis, DC on Bactrim and Amoxicillin. He has listed allergy to Keflex. Patient completed therapy after discharge from hospital as instructed but symptoms worsened. Later in ED patient developed fever of 101.3 F Tachycardic 140s HR. Normal BP 2 SIRS criteria met on admission for tachycardia with HR in 140s. Afebrile, no leukocytosis, normal lactic acid. Regardless, patient did appear Plan: Obtain stat blood cultures Continue Vancomycin CT arm with contrast NS @ 150 ml/hr for total 2 L IV fluids. Qualifiers: Site of cellulitis: extremity Site of cellulitis of extremity: upper extremity Laterality: left Qualified Code(s): L03.114 - Cellulitis of left upper limb (2) History of DVT (deep vein thrombosis) Current Visit: No Status: Acute Assessment and plan: Continue Xarelto (3) Left shoulder pain Current Visit: No Status: Acute Qualifiers: Chronicity: acute Qualified Code(s): M25.512 - Pain in left shoulder (4) Lymphedema of arm Current Visit: No Status: Acute - Time Spent With Patient Total time spent is greater than 50% in coordination of care (as documented) at patient's floor/unit and/or counseling patient:
[2018-06-07] MEDS ORDERED: Isovue-370 500 ML BOTTLE IVP ONE (17:49)
[2018-06-07] MEDS ORDERED: Acetaminophen 325 MG TABLET PO PRN (17:52)
[2018-06-07] MEDS ORDERED: Naloxone 0.4 MG/ML INJ IVP PRN (17:52)
[2018-06-07] MEDS ORDERED: *HR* OxyCODONE Immed Rel 5 MG TABLET PO PRN (17:52)
[2018-06-07] MEDS ORDERED: Vancomycin (wt based) 1,000 MG VIAL IVPB SCH (18:00)
[2018-06-07] MEDS ORDERED: *HR* Metoprolol 5 MG/5 ML VIAL IVP PRN (18:07)
[2018-06-07] MEDS ORDERED: Ondansetron 4 MG/2 ML VIAL IVP PRN (18:07)
[2018-06-07] MEDS ORDERED: Vancomycin 1,750 MG in 0.9 % Sodium Chloride 250 ML IVPB SCH (19:00)
[2018-06-07] MEDS: *HR* HYDROcodone/Acet 5/325 mg TABLET PO PRN (22:28)
[2018-06-07] MEDS: 0.9 % Sodium Chloride 1,000 ML IVC SCH (22:31)
[2018-06-08] MEDS: 0.9 % Sodium Chloride 1,000 ML IVC SCH (05:24)
[2018-06-08 06:35] LABS: Basophils % 0.4 %; Eosinophils # 0.3 K/mcL (0.0-0.6); Eosinophils % 2.6 %; Hematocrit 34.3 % (37.5-50.1); Immature Granulocytes % 0.4 % (0-4); Lymphocytes # 0.3 K/mcL (0.6-4.6); Lymphocytes % 2.6 %; Mean Corpuscular HGB Conc 32.1 g/dL (31.6-35.5); Mean Corpuscular Hemoglobin 29.5 pg (28.0-33.3); Mean Platelet Volume 8.6 fL (9.4-12.4); Monocytes # 0.3 K/mcL (0.0-1.3); Neutrophils # 9.5 K/mcL (1.6-8.9); Platelet Count 209 K/mcL (140-400); Red Blood Count 3.73 M/mcL (4.19-5.50); Red Cell Distribution Width 14.8 % (11.5-14.5)
[2018-06-08 06:54] LABS: BUN/Creatinine Ratio 19 (6-26); Blood Urea Nitrogen 18 mg/dL (8-23); Calcium 8.4 mg/dL (8.6-10.3); Carbon Dioxide 23 mEq/L (23-29); Chloride 104 mEq/L (98-107); Glucose 121 mg/dL (70-105); Osmolality,Calculated 281 (280-300); Sodium 134 mEq/L (136-145); eGFR For Non-African Americans > 60 (> 60)
--- NOTE | 2018-06-08 08:15 | Internal Med Progress Note ---
<Adrian Saenz - Last Filed: 06/08/18 18:59> Hospitalist Progress Note - Encounter Date of Encounter: 06/08/18 Time of Encounter: 10:05 - Subjective Interval History: Mr. Becerril is a 78M with PMH of DVT of left LE on Xarelto, and PVD. He originally presented on 06/07 for worsening left arm infection. He was recently admitted about 3 weeks ago for cellulitis of the left upper extremity. During that admission, he did have positive blood culture for Staph hominis in 1 of 2 sets which is thought to be contaminate. He was discharged home on Bactrim in stable condition. Pt seen and examined at bedside. Pt states his arm feels "a little better than yesterday." States he feels that his arm is less swollen. Continues to complain of left shoulder pain, but states this is chronic. Denies any further subjective fever or chills. Denies any chest pain, shortness of breath, abdominal pain, nausea, vomiting, diarrhea, or constipation. No headaches, numbness, or tingling. - Exam Vitals: Temp Pulse Resp BP Pulse Ox 99.2 F 68 18 121/65 97 06/08/18 07:11 06/08/18 07:11 06/08/18 07:11 06/08/18 07:11 06/08/18 07:11 Exam: General: well developed, well nourished male in no acute distress Head: normocephalic and atraumatic Eyes: PERRL, EOMI, sclera anicteric, conjunctiva pink Neck: supple, trachea midline Lungs: CTA bilaterally. non-labored breathing on room air. no wheezes, rales, or rhonchi Heart: RRR +s1 +s2 No murmurs, clicks, or rubs GI: abdomen soft, non-tender, non-distended. normoactive bowel sounds Extremities: left UE with non-pitting edema distally up to the elbow, erythematous and warm to touch. Normal ROM. No edema or cyanosis of LEs. Chronic venous statis changes to bilateral LEs. Neuro: A&Ox3. no focal deficits. no speech difficulty or abnormality. sensation intact Skin: warm, dry, intact. Erythema as above. - Assessment and Plan (1) Cellulitis Current Visit: Yes Status: Acute Assessment and Plan: Failed outpatient therapy after admission for cellulitis on Bactrim and Amoxicillin Patient completed therapy after discharge from hospital as instructed but symptoms worsened. Allergic to Keflex - experiences a rash Febrile on admission, and remained febrile overnight with Tmax of 100.4 No leukocytosis Lactic acid normal on admission CT of left arm showed non-specific edema with no orgazined drainable fluid collection Continue IV Vanc at this time Awaiting blood culture results Consult ID (2) History of DVT (deep vein thrombosis) Current Visit: Yes Status: Chronic Assessment and Plan: Continue Xarelto Obtain left UE ultrasound to evaluate for possible acute DVT If doppler is negative, may consider further imaging looking for vascular or lymphatic obstruction (3) Left shoulder pain Current Visit: Yes Status: Chronic Assessment and Plan: CT of left upper extremity with findings as below: - Severe degenerative changes of the bilateral glenohumeral joints with bilateral glenohumeral effusion present. - Hydroxyapatite deposition involving the left supraspinatus and infraspinatus tendons compatible with calcific tendinosis. 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 (5) Renal cyst Current Visit: Yes Status: Acute Assessment and Plan: 2.1 cm cyst within the superior pole of the left kidney as seen on CT Per radiology report: No additional follow-up is necessary DVT Prophylaxis: on Xarelto - Time Spent with Patient Total time spent is greater than 50% in coordination of care (as documented) at patient's floor/unit and/or counseling patient: Internal Medicine: Result - Labs CBC & Chem 7: 06/08/18 06:24 06/08/18 06:24 Labs: Short CBC 06/07/18 06/08/18 Range/Units 15:39 06:24 WBC 7.3 10.4 (4.3-11.1) K/mcL Hgb 11.7 L 11.0 L (12.9-16.9) g/dL Hct 36.8 L 34.3 L (37.5-50.1) % Plt Count 237 209 (140-400) K/mcL Neutrophils # 5.4 9.5 H (1.6-8.9) K/mcL BMP 06/07/18 06/08/18 15:39 06:24 Sodium 137 134 L Potassium 4.3 4.0 Chloride 102 104 Carbon Dioxide 28 23 BUN 17 18 Creatinine 1.03 0.94 Glucose 107 H 121 H Calcium 9.1 8.4 L - Impressions Impressions Upper Extremity CT 06/07/18 17:49 IMPRESSION: 1. Nonspecific edema involving the forearm which is most pronounced within the dorsal soft tissues. Edema does extend into the hand at also involves the distal most aspect of the upper arm. Correlate clinically for cellulitis. No organized drainable fluid collection identified. 2. No acute osseous abnormality is evident. 3. Severe degenerative changes of the bilateral glenohumeral joints with bilateral glenohumeral effusion present. 4. Large intra-articular bodies noted at the partially imaged right shoulder with the largest measuring 2.5 cm. 5. Hydroxyapatite deposition involving the left supraspinatus and infraspinatus tendons compatible with calcific tendinosis. 6. [id number] osteoarthritic changes of the left elbow with moderate nonspecific left elbow effusion. 7. [id number] degenerative changes of the left wrist. 8. Moderate coronary artery atherosclerotic disease. 9. 1.1 cm nodule within the right lobe of the thyroid gland. Follow-up as per below. RECOMMENDATIONS: Managing Incidental Thyroid Nodule Detected at CT or MRI or US1. Further evaluation by thyroid Ultrasound recommended for these incidental nodules: ~Age 18 years or less - Any nodule. ~Age 19-34 years old - Nodule 1 cm in size or greater. ~Age 35 years or more - Nodule 1.5 cm in size or greater2. Follow up thyroid ultrasound also recommend in these scenarios: ~Solitary nodule with high risk imaging features (locally invasive nodule or suspicious lymph nodes). ~Any nodule in a heterogeneous enlarged thyroid gland. NO further imaging is recommended in the following scenarios: ~No f/u imaging is recommended for ITNs not meeting the above criteria. ~No US or f/u recommended for ITNs without high risk features or with limited life expectancy or significant co-morbidities, unless clinically warranted. Note: These recommendations do not apply if increased risk for thyroid cancer or symptomatic thyroid disease. Recommendations for f/u of Incidental Thyroid Nodules (ITN) found on CT, MR, NM and Extrathyroidal US are based upon the ACR white paper and Ro 3-tiered system for managing ITNs:J Am Connor Radiol. 2014;12(2): 143-50 D/ / Deejay Faust MD / Deejay Faust MD Interpreting Provider: Deejay Faust MD Consult Discharge Plan - Plan Referrals: Fiorella Gooden, [employer] SERVICE TEAM MEMBER [Primary Care Provider] - <Calixto Ruff - Last Filed: 06/08/18 21:08> Hospitalist Progress Note - Encounter Date of Encounter: 06/08/18 - Exam Vitals: Temp Pulse Resp BP Pulse Ox 99.3 F 71 17 124/65 93 06/08/18 20:00 06/08/18 20:00 06/08/18 20:00 06/08/18 20:00 06/08/18 20:00 - Assessment and Plan (1) Cellulitis Current Visit: Yes Status: Acute (2) History of DVT (deep vein thrombosis) Current Visit: Yes Status: Chronic (3) Left shoulder pain Current Visit: Yes Status: Chronic (4) Thyroid nodule Current Visit: Yes Status: Acute (5) Renal cyst Current Visit: Yes Status: Acute - Time Spent with Patient Total time spent is greater than 50% in coordination of care (as documented) at patient's floor/unit and/or counseling patient: Internal Medicine: Result - Labs CBC & Chem 7: 06/08/18 06:24 06/08/18 06:24 Labs: Short CBC 06/08/18 Range/Units 06:24 WBC 10.4 (4.3-11.1) K/mcL Hgb 11.0 L (12.9-16.9) g/dL Hct 34.3 L (37.5-50.1) % Plt Count 209 (140-400) K/mcL Neutrophils # 9.5 H (1.6-8.9) K/mcL BMP 06/08/18 06:24 Sodium 134 L Potassium 4.0 Chloride 104 Carbon Dioxide 23 BUN 18 Creatinine 0.94 Glucose 121 H Calcium 8.4 L - Attending Attestation I examined this patient and my medical decision-making was reviewed with the Resident Physician. I agree with the documented findings, disposition and treatment plan as described except to the extent set forth below. <Adrian Saenz - Last Filed: 06/08/18 18:59> (1) Cellulitis Qualifiers: Site of cellulitis: extremity Site of cellulitis of extremity: upper extremity Laterality: left Qualified Code(s): L03.114 - Cellulitis of left upper limb (3) Left shoulder pain Qualifiers: Chronicity: chronic Qualified Code(s): M25.512 - Pain in left shoulder; G89.29 - Other chronic pain <Calixto Ruff - Last Filed: 06/08/18 21:08> (1) Cellulitis Qualifiers: Site of cellulitis: extremity Site of cellulitis of extremity: upper extremity Laterality: left Qualified Code(s): L03.114 - Cellulitis of left upper limb (3) Left shoulder pain Qualifiers: Chronicity: chronic Qualified Code(s): M25.512 - Pain in left shoulder; G89.29 - Other chronic pain
[2018-06-08] MEDS: Niacin (24 HR) 500 MG TAB.ER.24H PO SCH ×2 (09:37→21:57)
[2018-06-08] MEDS: Cyanocobalamin (B-12) 1,000 MCG TABLET PO SCH (09:38)
[2018-06-08] MEDS: Cholecalciferol (D-3) 1,000 UNIT TABLET PO SCH (09:39)
[2018-06-08] MEDS: Ascorbic Acid 500 MG TABLET PO SCH ×3 (09:39→21:57)
[2018-06-08] MEDS: Nystatin POWDER 30 GM BOTTLE TP SCH ×5 (10:39→21:58)
--- NOTE | 2018-06-08 12:17 | Infectious Disease Consult ---
Date of Encounter: 06/08/18 Time of Encounter: 12:57 Assessment and Plan (1) Sepsis Status: Acute Assessment and plan: The patient had 2 sepsis criteria. Likely secondary to left arm cellulitis. Improved. MAXIMUM TEMPERATURE 100.4 this morning. He continues to have some intermittent tachycardia. Blood cultures drawn set is pending. Recommendations: Repeat blood cultures 2 sets now. Check ESR and CRP. Continue vancomycin IV. Pharmacy to dose. Goal trough approximately 15. Consider adding gram-negative coverage if the patient fails to respond within the next 24 hours. Duration of treatment depends on the clinical picture. Monitor renal function and for drug toxicity and dose adjust antibiotics. Qualifiers: Sepsis type: sepsis due to unspecified organism Qualified Code(s): A41.9 - Sepsis, unspecified organism (2) Cellulitis Status: Acute Assessment and plan: Location: Left upper extremity. Causative organism: Unclear. Etiology: Unclear. Failed outpatient oral antibiotic therapy (Bactrim and Amoxicillin) CT of the left upper extremity negative for abscess or osseous abnormality. No septic arthritis of the elbow, forearm, or wrists are noted to indicate a possible source control issue. Currently on IV vancomycin. Qualifiers: Site of cellulitis: extremity Site of cellulitis of extremity: upper extremity Laterality: left Qualified Code(s): L03.114 - Cellulitis of left upper limb (3) Left shoulder pain Status: Acute Assessment and plan: Likely secondary to left arm cellulitis and chronic degenerative changes. CT shows severe degenerative changes of the bilateral glenohumeral joints with bilateral glenohumeral joint effusions, but no evidence of septic arthritis. Pain management per the primary team. Qualifiers: Chronicity: acute Qualified Code(s): M25.512 - Pain in left shoulder (4) History of DVT (deep vein thrombosis) Status: Acute Infectious Disease HPI - Data of Consult Patient: known to practice within the last 3 years Consult date: 06/08/18 Requesting Physician: Calixto Ruff MD Primary Care Provider: Fiorella Gooden CNP - Consult Narrative Reason for consult: Left arm cellulitis History of present illness: Mr. Arcos is a 78 year old male with a past medical history of DVT, left arm cellulitis. The patient was admitted to the hospital 06/07/18 for cellulitis of the left arm. We are consulted 06/08/18 for antibiotic recommendations for left arm cellulitis. Briefly, the patient's 78-year-old male with past medical history as stated above. The patient is known to the ID service as we were consulted on his case during his recent hospitalization from May 16 - May 18. At that time, he had left arm cellulitis which improved with IV antibiotics. He was discharged on oral Bactrim and amoxicillin and reported improvement. He completed the course of treatment but two days after completing the antibiotics, he had some swelling. He followed up with his primary care doctor on 06/01 who re-started the Bactrim. She saw her again in the office yesterday and had worsening of his symptoms so she advised him to come to the emergency department. Upon arrival, the patient was afebrile hemodynamically stable. Laboratory studies revealed a normal white blood cell count, renal function, and lactic acid. He was started on IV vancomycin and admitted to the hospital for further evaluation. Since admission, the patient has spiked a fever with a MAXIMUM TEMPERATURE of 101.3 with some associated tachycardia. He had a CT of the left upper extremity that showed nonspecific edema involving the forearm which is most pronounced within the dorsal soft tissues. Edema does extend into the hand and also involved the distal most aspect of the upper arm concerning for cellulitis. There is no organized drainable fluid collection identified in no acute osseous abnormality. At the time the patient became febrile, he has one set of blood cultures drawn. Today, he has had a MAXIMUM TEMPERATURE of 100.4. His white blood cell count remains normal. Currently, he is on IV vancomycin. We have been asked to evaluate and make further recommendations. During my exam today, the patient endorses the history as stated above. He states that yesterday his left shoulder and elbow were painful and his ROM was extremely limited. He reports improvement in the pain and swelling today and is now able to bend his arm at the elbow and lift his arm at the shoulder. He denies fevers, chills, or rigors prior to admission, but did have them yesterday in the ER. He denies headache, neck pain, weakness, or dizziness. He denies chest pain, shortness of breath, or cough. Denies nausea, vomiting, diarrhea, or constipation. Denies abdominal pain or urinary complaints. Denies oral thrush or new skin lesions. Denies injury to the LUE. Denies any open lesions or rashes. The patient lives at home alone. 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 He denies tobacco, alcohol, or illicit drug use. Denies chronic infectious diseases. Denies recent travel. Has a dog, but denies any bites or scratches. CC: Calixto Ruff MD Past Med Surg Social Fam HX - Past Medical History Attestation: Yes The following information was validated with the patient. Source: patient, old records reviewed, nursing notes reviewed Medical history: DVT Additional medical history: Hydrocele, LUE cellulitis Psychiatric history: no psych history - Past Surgical History Surgical History: other Additional surgical history: scrotal sx. knee replacement. dental surgery - Social History Smoking Status: Never smoker Smokeless Tobacco Status: No Alcohol use: none Drug use: none Occupational status: retired Current living situation: Home - Independent Activity Level: Independent ambulation Recent Out of Country Travel Within the Last 8 Weeks: No Exposure or Possible Exposure to Illness During Travel: No - Family History Father Hx Family Cardiac Disorders: Yes Infectious Disease-CN:Meds Rivaroxaban [Xarelto] 20 mg PO 1700 11/03/16 [History] Ascorbate Calcium [Vitamin C] 500 mg PO TID 05/16/18 [History] Cholecalciferol (D-3) [Vitamin D] 5,000 unit PO DAILY 05/16/18 [History] Cyanocobalamin (Vitamin B-12) [B-12] 500 mcg PO DAILY 05/16/18 [History] Niacinamide [Niacin] 500 mg PO BID 05/16/18 [History] Vitamin E (Dl,Tocopheryl Acet) [Vitamin E] 400 unit PO DAILY 05/16/18 [History] Acetaminophen [Non-Aspirin] 650 mg PO Q6H PRN 06/08/18 [History] Allergy/AdvReac Type Severity Reaction Status Date / Time cephalexin [From Keflex] AdvReac Rash Verified 09/14/16 13:26 All systems: reviewed and no additional remarkable complaints except as stated Exam - Constitutional Vitals: Temp Pulse Resp BP Pulse Ox 98.5 F 77 18 128/69 99 06/08/18 11:40 06/08/18 11:40 06/08/18 11:40 06/08/18 11:40 06/08/18 11:40 General appearance: cooperative, no acute distress, obese - Head Head exam: Present: atraumatic, normal inspection, normocephalic - Eye Eye exam: Present: EOMI, normal appearance, PERRL Pupils: Present: normal accommodation - ENT ENT exam: Present: mucous membranes moist - Neck Neck exam: Present: normal inspection - Respiratory Respiratory exam: Present: CTAB. Absent: rales, respiratory distress, rhonchi, wheezes - Cardiovascular Cardiovascular exam: Present: RRR, +S1, +S2 - GI/Abdominal GI/Abdominal exam: Present: distended (obese), normal bowel sounds, soft. Absent: tenderness - Extremities Exam Extremities exam: Absent: joint swelling, normal inspection (LUE edema noted. Mild erythema. Mildly warm to touch. Non-tender.), pedal edema, tenderness Additional comments: Venous stasis dermatitis noted to the BLE. - Neurological Exam Neurological exam: Present: alert, oriented X3, no focal deficits - Psychiatric Psychiatric exam: Present: normal affect, normal mood - Skin Skin exam: Present: dry, intact, normal color, warm Infectious Disease CN: Results - Labs CBC & Chem 7: 06/08/18 06:24 06/08/18 06:24 Cultures: Cultures 06/07/18 15:45 Blood Culture - Preliminary Peripheral Venipuncture Culture is incubating and being continuously monitored for growth. Final report to follow. Consult Discharge Plan - Plan Referrals: Fiorella Gooden, PLANT OPERATIONS MANAGER [Primary Care Provider] -
[2018-06-08] MEDS: *HR* Rivaroxaban 10 MG TABLET PO SCH (17:07)
[2018-06-08] MEDS: *HR* HYDROcodone/Acet 5/325 mg TABLET PO PRN (21:57)
[2018-06-09 06:40] LABS: Basophils % 0.6 %; Eosinophils # 0.6 K/mcL (0.0-0.6); Eosinophils % 9.5 %; Hematocrit 32.9 % (37.5-50.1); Hemoglobin 10.4 g/dL (12.9-16.9); Immature Granulocytes % 0.3 % (0-4); Lymphocytes # 0.7 K/mcL (0.6-4.6); Lymphocytes % 10.7 %; Mean Corpuscular HGB Conc 31.6 g/dL (31.6-35.5); Mean Corpuscular Hemoglobin 29.2 pg (28.0-33.3); Mean Corpuscular Volume 92.4 fL (83.0-100.0); Mean Platelet Volume 9.2 fL (9.4-12.4); Monocytes # 0.3 K/mcL (0.0-1.3); Platelet Count 210 K/mcL (140-400); Red Blood Count 3.56 M/mcL (4.19-5.50); Red Cell Distribution Width 14.9 % (11.5-14.5); Segmented Neutrophils % 73.9 %
[2018-06-09 06:55] LABS: BUN/Creatinine Ratio 16 (6-26); Blood Urea Nitrogen 15 mg/dL (8-23); Calcium 8.9 mg/dL (8.6-10.3); Carbon Dioxide 23 mEq/L (23-29); Chloride 104 mEq/L (98-107); Glucose 96 mg/dL (70-105); Osmolality,Calculated 281 (280-300); Potassium 4.3 mEq/L (3.5-5.1); Sodium 135 mEq/L (136-145); eGFR For Non-African Americans > 60 (> 60)
--- NOTE | 2018-06-09 08:57 | Internal Med Progress Note ---
Addendum entered and electronically signed by Adrian Saenz 06/09/18 17:58: Original Note: <Adrian Saenz - Last Filed: 06/09/18 13:18> Hospitalist Progress Note - Encounter Date of Encounter: 06/09/18 Time of Encounter: 10:15 - Subjective Interval History: Mr. Becerril is a 78M with PMH of DVT of left LE on Xarelto, and PVD. He originally presented on 06/07 for worsening left arm infection. He was recently admitted about 3 weeks ago for cellulitis of the left upper extremity. During that admission, he did have positive blood culture for Staph hominis in 1 of 2 sets which is thought to be contaminate. He was discharged home on Bactrim in stable condition. Pt seen and examined at bedside. Pt states his arm feels "a little better than yesterday." States he feels that his arm is less swollen. Continues to complain of left shoulder pain, but states this is chronic. Denies any further subjective fever or chills. Denies any chest pain, shortness of breath, abdominal pain, n ausea, vomiting, diarrhea, or constipation. No headaches, numbness, or tingling. - Exam Vitals: Temp Pulse Resp BP Pulse Ox 98.5 F 76 18 137/76 98 06/09/18 07:18 06/09/18 07:18 06/09/18 07:18 06/09/18 07:18 06/09/18 07:18 Exam: General: well developed, well nourished male in no acute distress Head: normocephalic and atraumatic Eyes: PERRL, EOMI, sclera anicteric, conjunctiva pink Neck: supple, trachea midline Lungs: CTA bilaterally. non-labored breathing on room air. no wheezes, rales, or rhonchi Heart: RRR +s1 +s2 No murmurs, clicks, or rubs GI: abdomen soft, non-tender, non-distended. normoactive bowel sounds Extremities: left UE with non-pitting edema distally mcc up the forearm, erythematous and warm to touch. Normal ROM. No edema or cyanosis of LEs. Chronic venous statis changes to bilateral LEs. Neuro: A&Ox3. no focal deficits. no speech difficulty or abnormality. sensation intact Skin: warm, dry, intact. Erythema as above. - Assessment and Plan (1) Cellulitis Current Visit: Yes Status: Acute Assessment and Plan: Failed outpatient therapy after admission on 05/16/18 for cellulitis on Bactrim and Amoxicillin Patient completed therapy after discharge from hospital as instructed but symptoms worsened Allergic to Keflex - experiences a rash Febrile on admission, but afebrile at 98.5 today No leukocytosis Lactic acid normal on admission CT of left arm showed non-specific edema with no orgazined drainable fluid collection DVT unlikely with preliminary LUE doppler negative for DVT or SVT Continue IV Vanc at this time Awaiting blood culture results ID on board (2) History of DVT (deep vein thrombosis) Current Visit: Yes Status: Chronic Assessment and Plan: Continue Xarelto for hx of LLE DVT (3) Left shoulder pain Current Visit: Yes Status: Chronic Assessment and Plan: CT of left upper extremity with findings as below: - Severe degenerative changes of the bilateral glenohumeral joints with bilateral glenohumeral effusion present. - Hydroxyapatite deposition involving the left supraspinatus and infraspinatus tendons compatible with calcific tendinosis. 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 (5) Renal cyst Current Visit: Yes Status: Acute Assessment and Plan: 2.1 cm cyst within the superior pole of the left kidney as seen on CT Per radiology report: No additional follow-up is necessary DVT Prophylaxis: on Xarelto - Time Spent with Patient Total time spent is greater than 50% in coordination of care (as documented) at patient's floor/unit and/or counseling patient: Internal Medicine: Result - Labs CBC & Chem 7: 06/09/18 04:43 06/09/18 04:43 Labs: Short CBC 06/09/18 Range/Units 04:43 WBC 6.8 (4.3-11.1) K/mcL Hgb 10.4 L (12.9-16.9) g/dL Hct 32.9 L (37.5-50.1) % Plt Count 210 (140-400) K/mcL Neutrophils # 5.0 (1.6-8.9) K/mcL [facility] 06/09/18 04:43 Sodium 135 L Potassium 4.3 Chloride 104 Carbon Dioxide 23 BUN 15 Creatinine 0.95 Glucose 96 Calcium 8.9 Consult Discharge Plan - Plan Referrals: Fiorella Gooden [employer] GRINDER [Primary Care Provider] - 06/19/18 9:00 am <Calixto Ruff - Last Filed: 06/09/18 14:05> Hospitalist Progress Note - Encounter Date of Encounter: 06/09/18 - Exam Vitals: Temp Pulse Resp BP Pulse Ox 98.2 F 81 18 159/77 96 06/09/18 10:47 06/09/18 10:47 06/09/18 10:47 06/09/18 10:47 06/09/18 10:47 - Assessment and Plan (1) Cellulitis Current Visit: Yes Status: Acute (2) History of DVT (deep vein thrombosis) Current Visit: Yes Status: Chronic (3) Left shoulder pain Current Visit: Yes Status: Chronic (4) Thyroid nodule Current Visit: Yes Status: Acute (5) Renal cyst Current Visit: Yes Status: Acute - Time Spent with Patient Total time spent is greater than 50% in coordination of care (as documented) at patient's floor/unit and/or counseling patient: Internal Medicine: Result - Labs CBC & Chem 7: 06/09/18 04:43 06/09/18 04:43 Labs: Short CBC 06/09/18 Range/Units 04:43 WBC 6.8 (4.3-11.1) K/mcL Hgb 10.4 L (12.9-16.9) g/dL Hct 32.9 L (37.5-50.1) % Plt Count 210 (140-400) K/mcL Neutrophils # 5.0 (1.6-8.9) K/mcL [facility] 06/09/18 04:43 Sodium 135 L Potassium 4.3 Chloride 104 Carbon Dioxide 23 BUN 15 Creatinine 0.95 Glucose 96 Calcium 8.9 - Attending Attestation I examined this patient and my medical decision-making was reviewed with the Resident Physician. I agree with the documented findings, disposition and treatment plan as described except to the extent set forth below. Continues to improve. VS: reviewed, stable. Labs: reviewed. Arm decreased erythema and edema, ROM slightly improved. Continue imani, STEVE recommendations appreciated. <Adrian Saenz - Last Filed: 06/09/18 13:18> (1) Cellulitis Qualifiers: Site of cellulitis: extremity Site of cellulitis of extremity: upper extremity Laterality: left Qualified Code(s): L03.114 - Cellulitis of left upper limb (3) Left shoulder pain Qualifiers: Chronicity: chronic Qualified Code(s): M25.512 - Pain in left shoulder; G89.29 - Other chronic pain <Calixto Ruff - Last Filed: 06/09/18 14:05> (1) Cellulitis Qualifiers: Site of cellulitis: extremity Site of cellulitis of extremity: upper extremit y Laterality: left Qualified Code(s): L03.114 - Cellulitis of left upper limb (3) Left shoulder pain Qualifiers: Chronicity: chronic Qualified Code(s): M25.512 - Pain in left shoulder; G89.29 - Other chronic pain
[2018-06-09] MEDS: Nystatin POWDER 30 GM BOTTLE TP SCH ×3 (09:10→20:30)
[2018-06-09] MEDS: Cyanocobalamin (B-12) 1,000 MCG TABLET PO SCH (09:10)
[2018-06-09] MEDS: Niacin (24 HR) 500 MG TAB.ER.24H PO SCH ×2 (09:10→20:29)
[2018-06-09] MEDS: Ascorbic Acid 500 MG TABLET PO SCH ×3 (09:10→20:29)
[2018-06-09] MEDS: Cholecalciferol (D-3) 1,000 UNIT TABLET PO SCH (09:10)
--- NOTE | 2018-06-09 15:19 | Infectious Disease Progress No ---
Date of Encounter: 06/09/18 Time of Encounter: 12:00 - Assessment and Plan (1) Sepsis Current Visit: No Status: Acute The patient had 2 sepsis criteria. Likely secondary to left arm cellulitis. Improved. MAXIMUM TEMPERATURE 100.4 this morning. He continues to have some intermittent tachycardia. Blood cultures drawn set is NGTD. Recommendations: Await blood cultures. Continue vancomycin IV. Pharmacy to dose. Goal trough approximately 15. Consider adding gram-negative coverage if the patient fails to respond/worsens. Duration of treatment depends on the clinical picture. Recommend continued IV antibiotics through the weekend and will likely transition to PO when ready for discharge. Monitor renal function and for drug toxicity and dose adjust antibiotics. Qualifiers: Sepsis type: sepsis due to unspecified organism Qualified Code(s): A41.9 - Sepsis, unspecified organism (2) Cellulitis Current Visit: Yes Status: Acute Location: Left upper extremity. Causative organism: Unclear. Etiology: Unclear. Failed outpatient oral antibiotic therapy (Bactrim and Amoxicillin) CT of the left upper extremity negative for abscess or osseous abnormality. No septic arthritis of the elbow, forearm, or wrists are noted to indicate a possible source control issue. Improved. Currently on IV vancomycin. Qualifiers: Site of cellulitis: extremity Site of cellulitis of extremity: upper extremity Laterality: left Qualified Code(s): L03.114 - Cellulitis of left upper limb (3) Left shoulder pain Current Visit: Yes Status: Chronic Likely secondary to left arm cellulitis and chronic degenerative changes. CT shows severe degenerative changes of the bilateral glenohumeral joints with bilateral glenohumeral joint effusions, but no evidence of septic arthritis. Pain management per the primary team. Qualifiers: Chronicity: chronic Qualified Code(s): M25.512 - Pain in left shoulder; G89.29 - Other chronic pain (4) History of DVT (deep vein thrombosis) Current Visit: Yes Status: Chronic - Subjective Interval history: Seen and examined. No acute events noted overnight. Patient states overall he feels well today. Reports continual improvement in the range of motion and swelling of the left upper extremity. Denies fevers or chills or rigors. Denies chest pain, shortness of breath, or cough. Denies nausea, vomiting, diarrhea, or constipation. Denies abdominal pain or urinary complaints. Denies any oral thrush or new skin lesions. Infect Dis PN-Objective Data - Labs CBC & Chem 7: 06/09/18 04:43 06/09/18 04:43 Labs: Laboratory Results - last 24 hr 06/09/18 06/09/18 04:43 04:43 WBC 6.8 RBC 3.56 L Hgb 10.4 L Hct 32.9 L MCV 92.4 MCH 29.2 MCHC 31.6 RDW 14.9 H Plt Count 210 MPV 9.2 L Immature Gran % 0.3 Seg Neutrophils % 73.9 Lymphocytes % 10.7 Monocytes % 5.0 Eosinophils % 9.5 Basophils % 0.6 Neutrophils # 5.0 Lymphocytes # 0.7 Monocytes # 0.3 Eosinophils # 0.6 Basophils # 0.0 Sodium 135 L Potassium 4.3 Chloride 104 Carbon Dioxide 23 BUN 15 Creatinine 0.95 Est GFR ( Amer) > 60 Est GFR (Non-Af Amer) > 60 BUN/Creatinine Ratio 16 Glucose 96 Calculated Osmolality 281 Calcium 8.9 Cultures: Cultures 06/08/18 12:55 Blood Culture - Preliminary Peripheral Venipuncture Culture is incubating and being continuously mon itored for growth. Final report to follow. 06/08/18 12:59 Blood Culture - Preliminary Peripheral Venipuncture Culture is incubating and being continuously monitored for growth. Final report to follow. 06/07/18 15:45 Blood Culture - Preliminary Peripheral Venipuncture Culture is incubating and being continuously monitored for growth. Final report to follow. Exam - Constitutional Vitals: Temp Pulse Resp BP Pulse Ox 98.2 F 81 18 159/77 96 06/09/18 10:47 06/09/18 10:47 06/09/18 10:47 06/09/18 10:47 06/09/18 10:47 General appearance: cooperative, no acute distress, obese - Head Head exam: Present: atraumatic, normal inspection, normocephalic - Eye Eye exam: Present: EOMI, normal appearance, PERRL Pupils: Present: normal accommodation - ENT ENT exam: Present: mucous membranes moist - Neck Neck exam: Present: normal inspection - Respiratory Respiratory exam: Present: CTAB. Absent: rales, respiratory distress, rhonchi, wheezes - Cardiovascular Cardiovascular exam: Present: RRR, +S1, +S2 - GI/Abdominal GI/Abdominal exam: Present: distended, normal bowel sounds, soft. Absent: tenderness - Extremities Exam Extremities exam: Absent: normal inspection (Edema noted to the left upper extremity. Range of motion improved. No warmth or erythema noted.), tenderness - Neurological Exam Neurological exam: Present: alert, oriented X3, no focal deficits - Psychiatric Psychiatric exam: Present: normal affect, normal mood - Skin Skin exam: Present: dry, intact, normal color, warm Consult Discharge Plan - Plan Referrals: Fiorella Gooden F[employer]ITURE [employer]ISHER [Primary Care Provider] - 06/19/18 9:00 am
[2018-06-09] MEDS: *HR* Rivaroxaban 10 MG TABLET PO SCH (16:52)
[2018-06-10 04:31] LABS: Basophils % 0.4 %; Eosinophils # 0.6 K/mcL (0.0-0.6); Eosinophils % 11.9 %; Hematocrit 32.9 % (37.5-50.1); Hemoglobin 10.5 g/dL (12.9-16.9); Immature Granulocytes % 0.4 % (0-4); Lymphocytes # 0.7 K/mcL (0.6-4.6); Lymphocytes % 14.9 %; Mean Corpuscular HGB Conc 31.9 g/dL (31.6-35.5); Mean Corpuscular Hemoglobin 29.2 pg (28.0-33.3); Mean Corpuscular Volume 91.6 fL (83.0-100.0); Mean Platelet Volume 8.9 fL (9.4-12.4); Monocytes # 0.4 K/mcL (0.0-1.3); Monocytes % 7.8 %; Neutrophils # 3.2 K/mcL (1.6-8.9); Platelet Count 211 K/mcL (140-400); Red Blood Count 3.59 M/mcL (4.19-5.50); Red Cell Distribution Width 14.6 % (11.5-14.5); Segmented Neutrophils % 64.6 %
[2018-06-10 04:50] LABS: BUN/Creatinine Ratio 19 (6-26); Blood Urea Nitrogen 16 mg/dL (8-23); Calcium 8.8 mg/dL (8.6-10.3); Carbon Dioxide 27 mEq/L (23-29); Chloride 105 mEq/L (98-107); Glucose 109 mg/dL (70-105); Osmolality,Calculated 288 (280-300); Sodium 138 mEq/L (136-145); eGFR For Non-African Americans > 60 (> 60)
--- NOTE | 2018-06-10 08:18 | Internal Med Progress Note ---
Hospitalist Progress Note - Encounter Date of Encounter: 06/10/18 Time of Encounter: 09:23 - Subjective Interval History: No acute events. Arm pain continues to improve. Erythema improving as well. Denies fevers/chills. - Exam Vitals: Temp Pulse Resp BP Pulse Ox 97.6 F 84 18 153/85 98 06/10/18 07:27 06/10/18 07:27 06/10/18 07:27 06/10/18 07:27 06/10/18 07:27 Exam: General: well developed, well nourished male in no acute distress Head: normocephalic and atraumatic Eyes: PERRL, EOMI, sclera anicteric, conjunctiva pink Neck: supple, trachea midline Lungs: CTA bilaterally. non-labored breathing on room air. no wheezes, rales, or rhonchi Heart: RRR +s1 +s2 No murmurs, clicks, or rubs GI: abdomen soft, non-tender, non-distended. normoactive bowel sounds Extremities: edema of left forearm improved, left arm erythema and tenderness improved since prior exam. Normal ROM. No edema or cyanosis of LEs. Erythem of left axilla is present, only slightly improved since yesterday. Chronic venous statis changes to bilateral LEs. Neuro: A&Ox3. no focal deficits. no speech difficulty or abnormality. sensation intact Skin: warm, dry, intact. Erythema as above. - Assessment and Plan (1) Sepsis Current Visit: No Status: Acute Assessment and Plan: 2 SIRS criteria on admission, fever and tachycardia. Source is cellulitis. Blood cultures no growth to date. Resolved, continue vancomcyin IV. (2) Cellulitis Current Visit: Yes Status: Acute Assessment and Plan: Failed outpatient therapy after admission on 05/16/18 for cellulitis on Bactrim and Amoxicillin Patient completed therapy after discharge from hospital as instructed but symptoms worsened Allergic to Keflex - experiences a rash Febrile on admission, now resolved CT of left arm showed non-specific edema with no orgazined drainable fluid collection DVT unlikely with preliminary LUE doppler negative for DVT or SVT Continue IV Vanc at this time Awaiting blood culture result, no growth to date. Will need at least 2-3 more days of IV antibiotics, will have Infectious Disease re-evaluate patient at that point. (3) History of DVT (deep vein thrombosis) Current Visit: Yes Status: Chronic Assessment and Plan: of left lower extremity. No acute issues. Continue Xarelto (4) Left shoulder pain Current Visit: Yes Status: Chronic Assessment and Plan: CT of left upper extremity with findings as below: - Severe degenerative changes of the bilateral glenohumeral joints with bilateral glenohumeral effusion present. - Hydroxyapatite deposition involving the left supraspinatus and infraspinatus tendons compatible with calcific tendinosis. 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 (6) Renal cyst Current Visit: Yes Status: Acute Assessment and Plan: 2.1 cm cyst within the superior pole of the left kidney as seen on CT Per radiology report: No additional follow-up is necessary DVT Prophylaxis: on Xarelto - Time Spent with Patient Total time spent is greater than 50% in coordination of care (as documented) at patient's floor/unit and/or counseling patient: Internal Medicine: Result - Labs CBC & Chem 7: 06/10/18 03:36 06/10/18 03:36 Labs: Short CBC 06/10/18 Range/Units 03:36 WBC 5.0 (4.3-11.1) K/mcL Hgb 10.5 L (12.9-16.9) g/dL Hct 32.9 L (37.5-50.1) % Plt Count 211 (140-400) K/mcL Neutrophils # 3.2 (1.6-8.9) K/mcL BMP 06/10/18 03:36 Sodium 138 Potassium 4.0 Chloride 105 Carbon Dioxide 27 BUN 16 Creatinine 0.83 Glucose 109 H Calcium 8.8 Consult Discharge Plan - Plan Referrals: Fiorella Gooden, [employer]AN[employer] BLANCHER [Primary Care Provider] - 06/19/18 9:00 am (1) Sepsis Qualifiers: Sepsis type: sepsis due to unspecified organism Qualified Code(s): A41.9 - Sepsis, unspecified organism (2) Cellulitis Qualifiers: Site of cellulitis: extremity Site of cellulitis of extremity: upper extremity Laterality: left Qualified Code(s): L03.114 - Cellulitis of left upper limb (4) Left shoulder pain Qualifiers: Chronicity: chronic Qualified Code(s): M25.512 - Pain in left shoulder; G89.29 - Other chronic pain
[2018-06-10] MEDS: Cyanocobalamin (B-12) 1,000 MCG TABLET PO SCH (08:50)
[2018-06-10] MEDS: Nystatin POWDER 30 GM BOTTLE TP SCH ×3 (08:51→20:13)
[2018-06-10] MEDS: Ascorbic Acid 500 MG TABLET PO SCH ×3 (08:51→20:12)
[2018-06-10] MEDS: Niacin (24 HR) 500 MG TAB.ER.24H PO SCH ×2 (08:51→20:12)
[2018-06-10] MEDS: Cholecalciferol (D-3) 1,000 UNIT TABLET PO SCH (08:51)
[2018-06-10] MEDS: *HR* Rivaroxaban 10 MG TABLET PO SCH (18:00)
[2018-06-11] MEDS: Ascorbic Acid 500 MG TABLET PO SCH ×3 (08:55→21:06)
[2018-06-11] MEDS: Cholecalciferol (D-3) 1,000 UNIT TABLET PO SCH (08:55)
[2018-06-11] MEDS: Cyanocobalamin (B-12) 1,000 MCG TABLET PO SCH (08:55)
[2018-06-11] MEDS: Nystatin POWDER 30 GM BOTTLE TP SCH ×3 (08:55→21:07)
[2018-06-11] MEDS: Niacin (24 HR) 500 MG TAB.ER.24H PO SCH ×2 (08:55→21:06)
--- NOTE | 2018-06-11 13:13 | Internal Med Progress Note ---
Hospitalist Progress Note - Encounter Date of Encounter: 06/11/18 Time of Encounter: 10:30 - Subjective Interval History: No acute events. Arm pain continues to improve. Erythema near resolved. ROM better. - Exam Vitals: Temp Pulse Resp BP Pulse Ox 98.0 F 73 14 171/90 98 06/11/18 10:30 06/11/18 10:30 06/11/18 10:30 06/11/18 10:30 06/11/18 06:51 Exam: General: well developed, well nourished male in no acute distress Head: normocephalic and atraumatic Eyes: PERRL, EOMI, sclera anicteric, conjunctiva pink Neck: supple, trachea midline Lungs: CTA bilaterally. non-labored breathing on room air. no wheezes, rales, or rhonchi Heart: RRR +s1 +s2 No murmurs, clicks, or rubs GI: abdomen soft, non-tender, non-distended. normoactive bowel sounds Extremities: edema of left forearm improved, left arm erythema and tenderness improved since prior exam. Normal ROM. No edema or cyanosis of LEs. Erythem of left axilla is present, only slightly improved since yesterday. Chronic venous statis changes to bilateral LEs. Neuro: A&Ox3. no focal deficits. no speech difficulty or abnormality. sensation intact Skin: warm, dry, intact. Erythema as above. - Assessment and Plan (1) Sepsis Current Visit: No Status: Acute Assessment and Plan: 2 SIRS criteria on admission, fever and tachycardia. Source is cellulitis. Blood cultures no growth to date. Resolved, continue vancomcyin IV. ID consult re eval tomorrow. (2) Cellulitis Current Visit: Yes Status: Acute Assessment and Plan: Failed outpatient therapy after admission on 05/16/18 for cellulitis on Bactrim and Amoxicillin Patient completed therapy after discharge from hospital as instructed but symptoms worsened Allergic to Keflex - experiences a rash Febrile on admission, now resolved CT of left arm showed non-specific edema with no orgazined drainable fluid collection DVT unlikely with preliminary LUE doppler negative for DVT or SVT Continue IV Vanc Blood culture result, no growth to date. Will have Infectious Disease re-evaluate patient at that point. (3) History of DVT (deep vein thrombosis) Current Visit: Yes Status: Chronic Assessment and Plan: of left lower extremity. No acute issues. Continue Xarelto (4) Left shoulder pain Current Visit: Yes Status: Chronic Assessment and Plan: CT of left upper extremity with findings as below: - Severe degenerative changes of the bilateral glenohumeral joints with bilateral glenohumeral effusion present. - Hydroxyapatite deposition involving the left supraspinatus and infraspinatus tendons compatible with calcific tendinosis. 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 (6) Renal cyst Current Visit: Yes Status: Acute Assessment and Plan: 2.1 cm cyst within the superior pole of the left kidney as seen on CT Per radiology report: No additional follow-up is necessary DVT Prophylaxis: on Xarelto - Time Spent with Patient Total time spent is greater than 50% in coordination of care (as documented) at patient's floor/unit and/or counseling patient: Internal Medicine: Result - Labs CBC & Chem 7: 06/10/18 03:36 06/10/18 03:36 Consult Discharge Plan - Plan Referrals: Fiorella Gooden [employer]PER[employer]OR [employer]ODUCTION [Primary Care Provider] - 06/19/18 9:00 am (1) Sepsis Qualifiers: Sepsis type: sepsis due to unspecified organism Qualified Code(s): A41.9 - Sepsis, unspecified organism (2) Cellulitis Qualifiers: Site of cellulitis: extremity Site of cellulitis of extremity: upper extremity Laterality: left Qualified Code(s): L03.114 - Cellulitis of left upper limb (4) Left shoulder pain Qualifiers: Chronicity: chronic Qualified Code(s): M25.512 - Pain in left shoulder; G89.29 - Other chronic pain
[2018-06-11] MEDS: *HR* Rivaroxaban 10 MG TABLET PO SCH (17:47)
[2018-06-12 08:19] LABS: Basophils % 0.6 %; Eosinophils # 0.5 K/mcL (0.0-0.6); Eosinophils % 6.9 %; Hematocrit 40.6 % (37.5-50.1); Immature Granulocytes % 0.8 % (0-4); Lymphocytes # 0.8 K/mcL (0.6-4.6); Lymphocytes % 11.7 %; Mean Corpuscular HGB Conc 32.3 g/dL (31.6-35.5); Mean Corpuscular Hemoglobin 29.2 pg (28.0-33.3); Mean Corpuscular Volume 90.6 fL (83.0-100.0); Mean Platelet Volume 8.6 fL (9.4-12.4); Monocytes # 0.7 K/mcL (0.0-1.3); Monocytes % 10.9 %; Neutrophils # 4.5 K/mcL (1.6-8.9); Platelet Count 275 K/mcL (140-400); Red Blood Count 4.48 M/mcL (4.19-5.50); Red Cell Distribution Width 14.6 % (11.5-14.5); Segmented Neutrophils % 69.1 %
[2018-06-12 08:21] LABS: Hemoglobin 13.1 g/dL (12.9-16.9)
--- NOTE | 2018-06-12 08:24 | Internal Med Progress Note ---
<Adrian Saenz - Last Filed: 06/12/18 18:49> Hospitalist Progress Note - Encounter Date of Encounter: 06/12/18 Time of Encounter: 09:50 - Subjective Interval History: Mr. Becerril is a 78M with PMH of DVT of left LE on Xarelto, and PVD. He originally presented on 06/07 for worsening left arm infection. He was recently admitted about 3 weeks ago for cellulitis of the left upper extremity. During that admission, he did have positive blood culture for Staph hominis in 1 of 2 sets which is thought to be contaminate. He was discharged home on Bactrim in stable condition. Pt seen and examined at bedside. Pt states his arm felt better over this weekend, however this morning his wrist feels more swollen and painful. States his hand feels weak as well. Denies any fever or chills. Denies any chest pain, shortness of breath, abdominal pain, nausea, vomiting, diarrhea, or constipation. No headaches, numbness, or tingling. - Exam Vitals: Temp Pulse Resp BP Pulse Ox 97.7 F 95 17 145/80 95 06/12/18 07:13 06/12/18 07:13 06/12/18 07:13 06/12/18 07:13 06/12/18 07:13 Exam: General: well developed, well nourished male in no acute distress Head: normocephalic and atraumatic Eyes: PERRL, EOMI, sclera anicteric, conjunctiva pink Neck: supple, trachea midline Lungs: CTA bilaterally. non-labored breathing on room air. no wheezes, rales, or rhonchi Heart: RRR +s1 +s2 No murmurs, clicks, or rubs GI: abdomen soft, non-tender, non-distended. normoactive bowel sounds Extremities: edema of left forearm improved, erythema of left arm has resolved. TTP of left wrist. Decreased ROM of wrist. No edema or cyanosis of LEs. Erythema of left axilla is present, only slightly improved since yesterday. Chronic venous statis changes to bilateral LEs. Neuro: A&Ox3. no focal deficits. no speech difficulty or abnormality. sensation intact. fuel agent strength of left hand limited 2/2 pain Skin: warm, dry, intact. Erythema as above. - Assessment and Plan (1) Sepsis Current Visit: No Status: Acute Assessment and Plan: 2 SIRS criteria on admission, fever and tachycardia. Source is LUE cellulitis Blood cultures no growth to date. Sepsis resolved, however continue IV Vanc at this time ID on board (2) Cellulitis Current Visit: Yes Status: Acute Assessment and Plan: Cellutitis of left UE CT of left arm showed non-specific edema with no orgazined drainable fluid collection LUE doppler negative for DVT or SVT Blood culture result, no growth to date. Continue IV Vanc ID on board Concern for a component of gout with returned worsening swelling and pain Uric acid level normal - does NOT rule out acute flair Obtain MRIs to further evaluate joints (3) History of DVT (deep vein thrombosis) Current Visit: Yes Status: Chronic Assessment and Plan: of left lower extremity. No acute issues. Continue Xarelto (4) Left shoulder pain Current Visit: Yes Status: Chronic Assessment and Plan: CT of left upper extremity with findings as below: - Severe degenerative changes of the bilateral glenohumeral joints with bilateral glenohumeral effusion present. - Hydroxyapatite deposition involving the left supraspinatus and infraspinatus tendons compatible with calcific tendinosis. 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 (6) Renal cyst Current Visit: Yes Status: Acute Assessment and Plan: 2.1 cm cyst within the superior pole of the left kidney as seen on CT Per radiology report: No additional follow-up is necessary DVT Prophylaxis: on Xarelto - Time Spent with Patient Total time spent is greater than 50% in coordination of care (as documented) at patient's floor/unit and/or counseling patient: Internal Medicine: Result - Labs CBC & Chem 7: 06/12/18 08:07 06/12/18 08:07 Labs: Short CBC 06/12/18 Range/Units 08:07 WBC 6.5 (4.3-11.1) K/mcL Hgb 13.1 D (12.9-16.9) g/dL Hct 40.6 (37.5-50.1) % Plt Count 275 (140-400) K/mcL Neutrophils # 4.5 (1.6-8.9) K/mcL Consult Discharge Plan - Plan Referrals: Fiorella Gooden OPERATIONS RESEARCH ANALYST [Primary Care Provider] - 06/19/18 9:00 am <Calixto Ruff - Last Filed: 06/14/18 07:19> Hospitalist Progress Note - Encounter Date of Encounter: 06/14/18 - Exam Vitals: Temp Pulse Resp BP Pulse Ox 98.3 F 82 18 126/79 95 06/12/18 11:17 06/12/18 11:17 06/12/18 11:17 06/12/18 11:17 06/12/18 11:17 - Assessment and Plan (1) Sepsis Current Visit: No Status: Resolved (2) Cellulitis Current Visit: Yes Status: Acute (3) History of DVT (deep vein thrombosis) Current Visit: Yes Status: Chronic (4) Left shoulder pain Current Visit: Yes Status: Chronic (5) Thyroid nodule Current Visit: Yes Status: Acute (6) Renal cyst Current Visit: Yes Status: Acute - Time Spent with Patient Total time spent is greater than 50% in coordination of care (as documented) at patient's floor/unit and/or counseling patient: Internal Medicine: Result - Labs CBC & Chem 7: 06/14/18 04:34 06/14/18 04:34 Labs: Short CBC 06/12/18 Range/Units 08:07 WBC 6.5 (4.3-11.1) K/mcL Hgb 13.1 D (12.9-16.9) g/dL Hct 40.6 (37.5-50.1) % Plt Count 275 (140-400) K/mcL Neutrophils # 4.5 (1.6-8.9) K/mcL BMP 06/12/18 08:07 Sodium 137 Potassium 3.8 Chloride 102 Carbon Dioxide 26 BUN 14 Creatinine 0.79 Glucose 128 H Calcium 9.1 - Attending Attestation I examined this patient and my medical decision-making was reviewed with the Resident Physician. I agree with the documented findings, disposition and treatment plan as described except to the extent set forth below. ___ <Adrian Saenz - Last Filed: 06/12/18 18:49> (1) Sepsis Qualifiers: Sepsis type: sepsis due to unspecified organism Qualified Code(s): A41.9 - Sepsis, unspecified organism (2) Cellulitis Qualifiers: Site of cellulitis: extremity Site of cellulitis of extremity: upper extremity Laterality: left Qualified Code(s): L03.114 - Cellulitis of left upper limb (4) Left shoulder pain Qualifiers: Chronicity: chronic Qualified Code(s): M25.512 - Pain in left shoulder; G89.29 - Other chronic pain <Calixto Ruff - Last Filed: 06/14/18 07:19> (1) Sepsis Qualifiers: Sepsis type: sepsis due to unspecified organism Qualified Code(s): A41.9 - Sepsis, unspecified organism (2) Cellulitis Qualifiers: Site of cellulitis: extremity Site of cellulitis of extremity: upper extremity Laterality: left Qualified Code(s): L03.114 - Cellulitis of left upper limb (4) Left shoulder pain Qualifiers: Chronicity: chronic Qualified Code(s): M25.512 - Pain in left shoulder; G89.29 - Other chronic pain
[2018-06-12 08:37] LABS: BUN/Creatinine Ratio 18 (6-26); Blood Urea Nitrogen 14 mg/dL (8-23); Calcium 9.1 mg/dL (8.6-10.3); Carbon Dioxide 26 mEq/L (23-29); Chloride 102 mEq/L (98-107); Glucose 128 mg/dL (70-105); Osmolality,Calculated 286 (280-300); Potassium 3.8 mEq/L (3.5-5.1); Sodium 137 mEq/L (136-145); eGFR For Non-African Americans > 60 (> 60)
[2018-06-12] MEDS: Cholecalciferol (D-3) 1,000 UNIT TABLET PO SCH (09:13)
[2018-06-12] MEDS: Ascorbic Acid 500 MG TABLET PO SCH ×3 (09:13→20:39)
[2018-06-12] MEDS: Cyanocobalamin (B-12) 1,000 MCG TABLET PO SCH (09:13)
[2018-06-12] MEDS: Nystatin POWDER 30 GM BOTTLE TP SCH ×3 (09:14→20:39)
[2018-06-12] MEDS: Niacin (24 HR) 500 MG TAB.ER.24H PO SCH ×2 (09:14→20:39)
--- NOTE | 2018-06-12 09:59 | Infectious Disease Progress No ---
Date of Encounter: 06/12/18 Time of Encounter: 09:15 - Assessment and Plan (1) Sepsis Current Visit: No Status: Acute The patient had 2 sepsis criteria. Likely secondary to left arm cellulitis. Resolved. Afebrile. WBC normal. Blood cultures drawn set is negative. Recommendations: Check uric acid level. Consider MRI of the LUE. Avoid further BP/lab sticks in the LUE. Continue vancomycin IV. Pharmacy to dose. Goal trough approximately 15. Consider adding gram-negative coverage if the patient fails to respond/worsens. Duration of treatment depends on the clinical picture. Recommend continued IV antibiotics through the weekend and will likely transition to PO when ready for discharge. Monitor renal function and for drug toxicity and dose adjust antibiotics. Qualifiers: Sepsis type: sepsis due to unspecified organism Qualified Code(s): A41.9 - Sepsis, unspecified organism (2) Cellulitis Current Visit: Yes Status: Acute Location: Left upper extremity. Causative organism: Unclear. Etiology: Unclear. Failed outpatient oral antibiotic therapy (Bactrim and Amoxicillin) CT of the left upper extremity negative for abscess or osseous abnormality. No septic arthritis of the elbow, forearm, or wrists are noted to indicate a possible source control issue. Improved initially, but recurrence of pain/swelling to the left hand and wrist this morning. No erythema or warmth noted. Currently on IV vancomycin. Qualifiers: Site of cellulitis: extremity Site of cellulitis of extremity: upper extremity Laterality: left Qualified Code(s): L03.114 - Cellulitis of left upper limb (3) Left shoulder pain Current Visit: Yes Status: Chronic Likely secondary to left arm cellulitis and chronic degenerative changes. CT shows severe degenerative changes of the bilateral glenohumeral joints with bilateral glenohumeral joint effusions, but no evidence of septic arthritis. Pain management per the primary team. Qualifiers: Chronicity: chronic Qualified Code(s): M25.512 - Pain in left shoulder; G89.29 - Other chronic pain (4) History of DVT (deep vein thrombosis) Current Visit: Yes Status: Chronic - Subjective Interval history: Seen and examined. No acute events noted overnight. Patient states overall he feels well today. States the edema to his LUE was almost resolved, but it started to worsen again this morning in the hand/wrist after having lab drawn from the left wrist and BP taken in the J CARLOS arm. Reports mild pain in the left shoulder and elbow. Denies fevers or chills or rigors. Denies chest pain, shortness of breath, or cough. Denies nausea, vomiting, diarrhea, or constipation. Denies abdominal pain or urinary complaints. Denies any oral thrush or new skin lesions. Infect Dis PN-Objective Data - Labs CBC & Chem 7: 06/12/18 08:07 06/12/18 08:07 Labs: Laboratory Results - last 24 hr 06/12/18 06/12/18 06/12/18 03:35 08:07 08:07 WBC 6.5 RBC 4.48 Hgb 13.1 D Hct 40.6 MCV 90.6 MCH 29.2 MCHC 32.3 RDW 14.6 H Plt Count 275 MPV 8.6 L Immature Gran % 0.8 Seg Neutrophils % 69.1 Lymphocytes % 11.7 Monocytes % 10.9 Eosinophils % 6.9 Basophils % 0.6 Neutrophils # 4.5 Lymphocytes # 0.8 Monocytes # 0.7 Eosinophils # 0.5 Basophils # 0.0 Sodium 137 Potassium 3.8 Chloride 102 Carbon Dioxide 26 BUN 14 Creatinine 0.79 Est GFR ( Amer) > 60 Est GFR (Non-Af Amer) > 60 BUN/Creatinine Ratio 18 Glucose 128 H Calculated Osmolality 286 Calcium 9.1 Vancomycin Trough 16 H Cultures: Cultures 06/08/18 12:55 Blood Culture - Preliminary Peripheral Venipuncture Culture is incubating and being continuously monitored for growth. Final report to follow. 06/08/18 12:59 Blood Culture - Preliminary Peripheral Venipuncture Culture is incubating and being continuously monitored for growth. Final report to follow. 06/07/18 15:45 Blood Culture - Preliminary Peripheral Venipuncture Culture is incubating and being continuously monitored for growth. Final report to follow. Exam - Constitutional Vitals: Temp Pulse Resp BP Pulse Ox 97.7 F 95 17 145/80 95 06/12/18 07:13 06/12/18 07:13 06/12/18 07:13 06/12/18 07:13 06/12/18 07:13 General appearance: cooperative, no acute distress, obese - Head Head exam: Present: atraumatic, normal inspection, normocephalic - Eye Eye exam: Present: EOMI, normal appearance, PERRL Pupils: Present: normal accommodation - ENT ENT exam: Present: mucous membranes moist - Neck Neck exam: Present: normal inspection - Respiratory Respiratory exam: Present: CTAB. Absent: rales, respiratory distress, rhonchi, wheezes - Cardiovascular Cardiovascular exam: Present: RRR, +S1, +S2 - GI/Abdominal GI/Abdominal exam: Present: distended (obese), normal bowel sounds, soft. Absent: tenderness - Extremities Exam Extremities exam: Present: joint swelling (mild, left wrist), tenderness (left hand/wrist). Absent: normal inspection (1+ edema noted to the left hand/wrist.), pedal edema Additional comments: Venous stasis dermatitis noted to the BLE. - Neurological Exam Neurological exam: Present: alert, oriented X3, no focal deficits - Psychiatric Psychiatric exam: Present: normal affect, normal mood - Skin Skin exam: Present: dry, intact, normal color, warm Consult Discharge Plan - Plan Referrals: Fiorella Gooden, ENGINEERING PRODUCTION LIAISON [Primary Care Provider] - 06/19/18 9:00 am - Attending Attestation I have personally performed a face to face evaluation on this patient. I have reviewed and agree with the care plan. History and Exam by me shows: Patient seen and examined clinically doing better but now is having more swelling in his left hand. Not warm to touch. Negative for DVT negative for gout MRI tonight is pending Continue current treatment until MRI finalizes a freely we have no answers might consider a hand surgeon to evaluate
[2018-06-12 10:47] LABS: Uric Acid 4.8 mg/dL (2.3-7.6)
[2018-06-12] MEDS: *HR* HYDROcodone/Acet 5/325 mg TABLET PO PRN ×2 (11:14→20:47)
[2018-06-12] MEDS: *HR* Rivaroxaban 10 MG TABLET PO SCH (16:56)
[2018-06-13] MEDS ORDERED: *HR* HYDROcodone/Acet 5/325 mg TABLET PO ONE (00:30)
[2018-06-13 05:39] LABS: Basophils % 0.5 %; Eosinophils # 0.3 K/mcL (0.0-0.6); Hematocrit 36.5 % (37.5-50.1); Hemoglobin 11.9 g/dL (12.9-16.9); Immature Granulocytes % 1.2 % (0-4); Lymphocytes % 13.1 %; Mean Corpuscular HGB Conc 32.6 g/dL (31.6-35.5); Mean Corpuscular Hemoglobin 29.6 pg (28.0-33.3); Mean Corpuscular Volume 90.8 fL (83.0-100.0); Monocytes # 0.9 K/mcL (0.0-1.3); Monocytes % 12.4 %; Neutrophils # 5.1 K/mcL (1.6-8.9); Platelet Count 276 K/mcL (140-400); Red Blood Count 4.02 M/mcL (4.19-5.50); Red Cell Distribution Width 14.7 % (11.5-14.5); Segmented Neutrophils % 68.8 %
[2018-06-13 06:01] LABS: BUN/Creatinine Ratio 18 (6-26); Blood Urea Nitrogen 14 mg/dL (8-23); Calcium 9.1 mg/dL (8.6-10.3); Carbon Dioxide 25 mEq/L (23-29); Chloride 103 mEq/L (98-107); Glucose 120 mg/dL (70-105); Osmolality,Calculated 284 (280-300); Potassium 4.1 mEq/L (3.5-5.1); Sodium 136 mEq/L (136-145); eGFR For Non-African Americans > 60 (> 60)
[2018-06-13] MEDS: Niacin (24 HR) 500 MG TAB.ER.24H PO SCH ×2 (08:12→21:42)
[2018-06-13] MEDS: Cholecalciferol (D-3) 1,000 UNIT TABLET PO SCH (08:12)
[2018-06-13] MEDS: Ascorbic Acid 500 MG TABLET PO SCH ×3 (08:13→21:42)
[2018-06-13] MEDS: Cyanocobalamin (B-12) 1,000 MCG TABLET PO SCH (08:13)
[2018-06-13] MEDS: Nystatin POWDER 30 GM BOTTLE TP SCH ×3 (08:13→21:42)
--- NOTE | 2018-06-13 08:38 | Internal Med Progress Note ---
<Adrian Saenz - Last Filed: 06/13/18 17:39> Hospitalist Progress Note - Encounter Date of Encounter: 06/13/18 Time of Encounter: 09:35 - Subjective Interval History: Mr. Becerril is a 78M with PMH of DVT of left LE on Xarelto, and PVD. He originally presented on 06/07 for worsening left arm infection. He was recently admitted about 3 weeks ago for cellulitis of the left upper extremity. During that admission, he did have positive blood culture for Staph hominis in 1 of 2 sets which is thought to be contaminate. He was discharged home on Bactrim in stable condition. Pt seen and examined at bedside. Pt states his wrist continues to feel swollen and painful. States his hand feels remains weak with no interval change since yesterday. Denies any fever or chills. Denies any chest pain, shortness of breath, abdominal pain, nausea, vomiting, diarrhea, or constipation. No headaches, numbness, or tingling. - Exam Vitals: Temp Pulse Resp BP Pulse Ox 98.4 F 72 17 122/72 96 06/13/18 07:22 06/13/18 07:22 06/13/18 07:22 06/13/18 07:22 06/13/18 07:22 Exam: General: well developed, well nourished male in no acute distress Head: normocephalic and atraumatic Eyes: PERRL, EOMI, sclera anicteric, conjunctiva pink Neck: supple, trachea midline Lungs: CTA bilaterally. non-labored breathing on room air. no wheezes, rales, or rhonchi Heart: RRR +s1 +s2 No murmurs, clicks, or rubs GI: abdomen soft, non-tender, non-distended. normoactive bowel sounds Extremities: edema of left forearm improved, erythema of left arm has resolved. TTP of left wrist. Decreased ROM of wrist. No edema or cyanosis of LEs. Erythema of left axilla is present, only slightly improved since yesterday. Chronic venous statis changes to bilateral LEs. Neuro: A&Ox3. no focal deficits. no speech difficulty or abnormality. sensation intact. general cleaner strength of left hand limited 2/2 pain Skin: warm, dry, intact. - Assessment and Plan (1) Cellulitis Current Visit: Yes Status: Acute Assessment and Plan: Cellutitis of left UE CT of left arm showed non-specific edema with no orgazined drainable fluid collection LUE doppler negative for DVT or SVT Blood culture result, no growth to date. MRI of wrist and hand showed degenerative changes with no organized drainable fluid Uric acid level normal - does NOT rule out acute flair Continue IV Vanc ID on board Consult to ortho for further evaluation of hand and wrist pain/swelling (2) Sepsis Current Visit: No Status: Resolved Assessment and Plan: 2 SIRS criteria on admission, fever and tachycardia. Source is LUE cellulitis Blood cultures no growth to date. Sepsis resolved, however continue IV Vanc at this time ID on board (3) History of DVT (deep vein thrombosis) Current Visit: Yes Status: Chronic Assessment and Plan: of left lower extremity. No acute issues. Continue Xarelto (4) Left shoulder pain Current Visit: Yes Status: Chronic Assessment and Plan: CT of left upper extremity with findings as below: - Severe degenerative changes of the bilateral glenohumeral joints with bilateral glenohumeral effusion present. - Hydroxyapatite deposition involving the left supraspinatus and infraspinatus tendons compatible with calcific tendinosis. 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 (6) Renal cyst Current Visit: Yes Status: Acute Assessment and Plan: 2.1 cm cyst within the superior pole of the left kidney as seen on CT Per radiology report: No additional follow-up is necessary DVT Prophylaxis: on Xarelto - Time Spent with Patient Total time spent is greater than 50% in coordination of care (as documented) at patient's floor/unit and/or counseling patient: Internal Medicine: Result - Labs CBC & Chem 7: 06/13/18 03:59 06/13/18 03:59 Labs: Short CBC 06/13/18 Range/Units 03:59 WBC 7.4 (4.3-11.1) K/mcL Hgb 11.9 L (12.9-16.9) g/dL Hct 36.5 L (37.5-50.1) % Plt Count 276 (140-400) K/mcL Neutrophils # 5.1 (1.6-8.9) K/mcL BMP 06/12/18 06/13/18 08:07 03:59 Sodium 137 136 Potassium 3.8 4.1 Chloride 102 103 Carbon Dioxide 26 25 BUN 14 14 Creatinine 0.79 0.79 Glucose 128 H 120 H Calcium 9.1 9.1 - Impressions Impressions Hand MRI 06/12/18 10:38 IMPRESSION: MRI left wrist: 1. Hlix-rp-[id number] osteoarthritis throughout the wrist with small wrist effusion and synovitis. Degenerative cystic changes noted throughout the wrist. Chondrocalcinosis noted on prior CT is not as well appreciated on MRI. CPPD arthropathy would be a consideration. 2. Chronic degenerative type tearing of the TFCC diffusely involving the articular disc. 3. Small amount of fluid within the 2nd extensor compartment compatible with mild tenosynovitis. 4. No acute osseous abnormality of the left wrist identified. 5. Diffuse subcutaneous edema. Correlate clinically for cellulitis. No organized drainable fluid collection identified. MRI left hand: 1. Subcutaneous edema involving predominantly the dorsal soft tissues of the hand. Correlate for cellulitis. No organized drainable fluid collection identified. 2. Mild degenerative changes of the 1st metacarpophalangeal joint. D/ / Deejay Faust MD / Deejay Faust MD Interpreting Provider: Deejay Faust MD Wrist MRI 06/12/18 10:38 IMPRESSION: MRI left wrist: 1. Yygt-[id number] osteoarthritis throughout the wrist with small wrist effusion and synovitis. Degenerative cystic changes noted throughout the wrist. Chondrocalcinosis noted on prior CT is not as well appreciated on MRI. CPPD arthropathy would be a consideration. 2. Chronic degenerative type tearing of the TFCC diffusely involving the articular disc. 3. Small amount of fluid within the 2nd extensor compartment compatible with mild tenosynovitis. 4. No acute osseous abnormality of the left wrist identified. 5. Diffuse subcutaneous edema. Correlate clinically for cellulitis. No organized drainable fluid collection identified. MRI left hand: 1. Subcutaneous edema involving predominantly the dorsal soft tissues of the hand. Correlate for cellulitis. No organized drainable fluid collection identified. 2. Mild degenerative changes of the 1st metacarpophalangeal joint. D/ / Deejay Faust MD / Deejay Faust MD Interpreting Provider: Deejay Faust MD Consult Discharge Plan - Plan Referrals: Fiorella Gooden CNP [Primary Care Provider] - 06/19/18 9:00 am <Calixto Ruff - Last Filed: 06/14/18 07:21> Hospitalist Progress Note - Encounter Date of Encounter: 06/14/18 - Exam Vitals: Temp Pulse Resp BP Pulse Ox 98.5 F 79 17 128/75 96 06/14/18 04:28 06/14/18 04:28 06/14/18 04:28 06/14/18 04:28 06/14/18 04:28 - Assessment and Plan (1) Sepsis Current Visit: No Status: Resolved (2) Cellulitis Current Visit: Yes Status: Acute (3) History of DVT (deep vein thrombosis) Current Visit: Yes Status: Chronic (4) Left shoulder pain Current Visit: Yes Status: Chronic (5) Thyroid nodule Current Visit: Yes Status: Acute (6) Renal cyst Current Visit: Yes Status: Acute - Time Spent with Patient Total time spent is greater than 50% in coordination of care (as documented) at patient's floor/unit and/or counseling patient: Internal Medicine: Result - Labs CBC & Chem 7: 06/14/18 04:34 06/14/18 04:34 Labs: Short CBC 06/14/18 Range/Units 04:34 WBC 8.3 (4.3-11.1) K/mcL Hgb 10.8 L (12.9-16.9) g/dL Hct 33.1 L (37.5-50.1) % Plt Count 241 (140-400) K/mcL Neutrophils # 6.1 (1.6-8.9) K/mcL BMP 06/13/18 06/14/18 03:59 04:34 Sodium 136 134 L Potassium 4.1 4.1 Chloride 103 102 Carbon Dioxide 25 23 BUN 14 16 Creatinine 0.79 0.77 Glucose 120 H 125 H Calcium 9.1 8.8 - Impressions Impressions Joint Aspiration/Injection 06/13/18 00:00 IMPRESSION: Minimal fluid aspirated from the distal radioulnar joint. Patient tolerated the procedure and was sent back to his room. D/ / Rayna Estrada MD / Rayna Estrada MD Interpreting Provider: Rayna Estrada MD - Attending Attestation I examined this patient and my medical decision-making was reviewed with the Resident Physician. I agree with the documented findings, disposition and treatment plan as described except to the extent set forth below. _ <Adrian Saenz - Last Filed: 06/13/18 17:39> (1) Cellulitis Qualifiers: Site of cellulitis: extremity Site of cellulitis of extremity: upper extremity Laterality: left Qualified Code(s): L03.114 - Cellulitis of left upper limb (2) Sepsis Qualifiers: Sepsis type: sepsis due to unspecified organism Qualified Code(s): A41.9 - Sepsis, unspecified organism (4) Left shoulder pain Qualifiers: Chronicity: chronic Qualified Code(s): M25.512 - Pain in left shoulder; G89.29 - Other chronic pain <Calixto Ruff - Last Filed: 06/14/18 07:21> (1) Sepsis Qualifiers: Sepsis type: sepsis due to unspecified organism Qualified Code(s): A41.9 - Sepsis, unspecified organism (2) Cellulitis Qualifiers: Site of cellulitis: extremity Site of cellulitis of extremity: upper extremity Laterality: left Qualified Code(s): L03.114 - Cellulitis of left upper limb (4) Left shoulder pain Qualifiers: Chronicity: chronic Qualified Code(s): M25.512 - Pain in left shoulder; G89.29 - Other chronic pain
[2018-06-13 09:36] LABS: C-Reactive Protein 73 mg/L (Less than 10)
--- NOTE | 2018-06-13 10:03 | Infectious Disease Progress No ---
Date of Encounter: 06/13/18 Time of Encounter: 09:30 - Assessment and Plan (1) Sepsis Current Visit: No Status: Acute The patient had 2 sepsis criteria. Likely secondary to left arm cellulitis. Resolved. Afebrile. WBC normal. Blood cultures drawn set is negative. Recommendations: Avoid further BP/lab sticks in the LUE. Recommend ortho-hand to evaluate. Continue vancomycin IV. Pharmacy to dose. Goal trough approximately 15. Duration of treatment depends on the clinical picture. Recommend continued IV antibiotics while inpatient with plans to transition to PO doxycycline and Keflex on discharge to complete a 14 day course of treatment. Monitor renal function and for drug toxicity and dose adjust antibiotics. Qualifiers: Sepsis type: sepsis due to unspecified organism Qualified Code(s): A41.9 - Sepsis, unspecified organism (2) Cellulitis Current Visit: Yes Status: Acute Location: Left upper extremity. Causative organism: Unclear. Etiology: Unclear. Failed outpatient oral antibiotic therapy (Bactrim and Amoxicillin) CT of the left upper extremity negative for abscess or osseous abnormality. No septic arthritis of the elbow, forearm, or wrists are noted to indicate a possible source control issue. MRI of the left hand shows some subcutaneous edema, but clinically does not look like cellulitis at this point. No erythema or warmth noted. Currently on IV vancomycin. Qualifiers: Site of cellulitis: extremity Site of cellulitis of extremity: upper extremity Laterality: left Qualified Code(s): L03.114 - Cellulitis of left upper limb (3) TFCC (triangular fibrocartilage complex) tear Current Visit: Yes Status: Acute Location: Left wrist. Etiology: unclear. Recommend ortho-hand to evaluate. Pain management per the primary team. Qualifiers: Encounter type: initial encounter Laterality: left Qualified Code(s): S63.592A - Other specified sprain of left wrist, initial encounter (4) Left shoulder pain Current Visit: Yes Status: Chronic Likely secondary to left arm cellulitis and chronic degenerative changes. CT shows severe degenerative changes of the bilateral glenohumeral joints with bilateral glenohumeral joint effusions, but no evidence of septic arthritis. Pain management per the primary team. Qualifiers: Chronicity: chronic Qualified Code(s): M25.512 - Pain in left shoulder; G89.29 - Other chronic pain (5) History of DVT (deep vein thrombosis) Current Visit: Yes Status: Chronic - Subjective Interval history: Patient seen and examined. No acute events noted overnight. Patient states overall he feels well today. States the edema to his left hand and wrist persists. Reports mild pain in the left shoulder and elbow. Denies fevers or chills or rigors. Denies chest pain, shortness of breath, or cough. Denies nausea, vomiting, diarrhea, or constipation. Denies abdominal pain or urinary complaints. Denies any oral thrush or new skin lesions. Infect Dis PN-Objective Data - Labs CBC & Chem 7: 06/13/18 03:59 06/13/18 03:59 Labs: Laboratory Results - last 24 hr 06/12/18 06/13/18 06/13/18 03:35 03:59 03:59 WBC 7.4 RBC 4.02 L Hgb 11.9 L Hct 36.5 L MCV 90.8 MCH 29.6 MCHC 32.6 RDW 14.7 H Plt Count 276 MPV 9.0 L Immature Gran % 1.2 Seg Neutrophils % 68.8 Lymphocytes % 13.1 Monocytes % 12.4 Eosinophils % 4.0 Basophils % 0.5 Neutrophils # 5.1 Lymphocytes # 1.0 Monocytes # 0.9 Eosinophils # 0.3 Basophils # 0.0 Sodium 136 Potassium 4.1 Chloride 103 Carbon Dioxide 25 BUN 14 Creatinine 0.79 Est GFR ( Amer) > 60 Est GFR (Non-Af Amer) > 60 BUN/Creatinine Ratio 18 Glucose 120 H Calculated Osmolality 284 Uric Acid 4.8 Calcium 9.1 C-Reactive Protein 73 H Vancomycin Trough 16 H Cultures: Cultures 06/07/18 15:45 Blood Culture - Final Peripheral Venipuncture No growth. Final report. 06/08/18 12:55 Blood Culture - Preliminary Peripheral Venipuncture Culture is incubating and being continuously monitored for growth. Final report to follow. 06/08/18 12:59 Blood Culture - Preliminary Peripheral Venipuncture Culture is incubating and being continuously monitored for growth. Final report to follow. - Impressions Impressions Hand MRI 06/12/18 10:38 IMPRESSION: MRI left wrist: 1. Wkqq-na-rqnlunyp osteoarthritis throughout the wrist with small wrist effusion and synovitis. Degenerative cystic changes noted throughout the wrist. Chondrocalcinosis noted on prior CT is not as well appreciated on MRI. CPPD arthropathy would be a consideration. 2. Chronic degenerative type tearing of the TFCC diffusely involving the articular disc. 3. Small amount of fluid within the 2nd extensor compartment compatible with mild tenosynovitis. 4. No acute osseous abnormality of the left wrist identified. 5. Diffuse subcutaneous edema. Correlate clinically for cellulitis. No organized drainable fluid collection identified. MRI left hand: 1. Subcutaneous edema involving predominantly the dorsal soft tissues of the hand. Correlate for cellulitis. No organized drainable fluid collection identified. 2. Mild degenerative changes of the 1st metacarpophalangeal joint. D/ / Deejay Faust MD / Deejay Faust MD Interpreting Provider: Deejay Faust MD Wrist MRI 06/12/18 10:38 IMPRESSION: MRI left wrist: 1. Wlue-ed-qvudculd osteoarthritis throughout the wrist with small wrist effusion and synovitis. Degenerative cystic changes noted throughout the wrist. Chondrocalcinosis noted on prior CT is not as well appreciated on MRI. CPPD arthropathy would be a consideration. 2. Chronic degenerative type tearing of the TFCC diffusely involving the articular disc. 3. Small amount of fluid within the 2nd extensor compartment compatible with mild tenosynovitis. 4. No acute osseous abnormality of the left wrist identified. 5. Diffuse subcutaneous edema. Correlate clinically for cellulitis. No organized drainable fluid collection identified. MRI left hand: 1. Subcutaneous edema involving predominantly the dorsal soft tissues of the hand. Correlate for cellulitis. No organized drainable fluid collection identified. 2. Mild degenerative changes of the 1st metacarpophalangeal joint. D/ / Deejay Faust MD / Deejay Faust MD Interpreting Provider: Deejay Faust MD Exam - Constitutional Vitals: Temp Pulse Resp BP Pulse Ox 98.4 F 72 17 122/72 96 06/13/18 07:22 06/13/18 07:22 06/13/18 07:22 06/13/18 07:22 06/13/18 07:22 General appearance: cooperative, no acute distress, obese - Head Head exam: Present: atraumatic, normal inspection, normocephalic - Eye Eye exam: Present: EOMI, normal appearance, PERRL Pupils: Present: normal accommodation - ENT ENT exam: Present: mucous membranes moist - Neck Neck exam: Present: normal inspection - Respiratory Respiratory exam: Present: CTAB. Absent: rales, respiratory distress, rhonchi, wheezes - Cardiovascular Cardiovascular exam: Present: RRR, +S1, +S2 - GI/Abdominal GI/Abdominal exam: Present: distended (obese), normal bowel sounds, soft. Absent: tenderness - Extremities Exam Extremities exam: Absent: normal inspection (Trace edema left hand/wrist. No erythema or warmth noted.), pedal edema Additional comments: Venous stasis dermatitis noted to the BLE, L>R. - Back Exam Back exam: Present: normal inspection - Neurological Exam Neurological exam: Present: alert, oriented X3, no focal deficits - Psychiatric Psychiatric exam: Present: normal affect, normal mood - Skin Skin exam: Present: dry, intact, normal color, warm Consult Discharge Plan - Plan Referrals: Fiorella Gooden WRAPPER OPENER [Primary Care Provider] - 06/19/18 9:00 am - Attending Attestation I have personally performed a face to face evaluation on this patient. I have reviewed and agree with the care plan. History and Exam by me shows: Assessment and plan Left hand swelling and erythema Infectious versus inflammatory versus other MRI reviewed Appreciate orthopedic recommendation Continue antibiotics for now consider switching to orals
--- NOTE | 2018-06-13 11:58 | Orthopedic Consult Note ---
Date of Encounter: 06/13/18 Time of Encounter: 11:54 Assessment and Plan (1) Cellulitis Current Visit: Yes Status: Acute I did have a long discussion with the patient regarding the diagnosis. He does have left upper extremity pain and symptoms which did initially appear to be related to cellulitis however this has improved but plateaued. Symptoms appear to be focal mostly to the wrist area. My recommendation is for arthrocentesis of the left wrist to evaluate the synovial fluid to help assist in diagnosis either inflammatory versus infectious arthropathy. After informed consent and a timeout identify the correct patient, correct procedure, and the correct side I did sterilize the dorsal aspect of the left wrist about 1 cm distal to Linda's tubercle and introduced an 18-gauge needle into the radiocarpal space but was unable to aspirate any fluid. The needle was withdrawn and a Band-Aid was placed. He tolerated this well. We will continue vancomycin for now. I placed a consult to interventional radiology for a guided aspiration of the left wrist, either with fluoroscopy or ultrasound. He would benefit from bracing of the left wrist which will help regarding symptom control. My recommendation is also elevation of the left upper extremity. We will keep him nothing by mouth until the aspiration which interventional radiology said they will be able to perform today. Qualifiers: Site of cellulitis: extremity Site of cellulitis of extremity: upper extremity Laterality: left Qualified Code(s): L03.114 - Cellulitis of left upper limb History of Present Illness HPI: Mr. Arcos is a 78 year old male who is currently admitted to the hospitalist. He did have a recent hospitalization about 3 weeks ago due to left upper extremity pain and swelling presumed to be infectious in origin. He had improved and was discharged on oral antibiotics but symptoms returned after he completed his course. He was sent back to the emergency department for worsening symptoms and was admitted mid last week with the same diagnosis. He has been getting IV vancomycin since and had been improving until Tuesday in which he says he has not had any significant change. He currently complains of pain isolated to the left hand and wrist area but most significantly involving the wrist, worse with any movement and use and better with rest. He denies any recent or prior trauma. He denies any history of known inflammatory arthropathy. He does have a remote history of an infected left total knee which underwent successful treatment by my partner Dr. Park, and the patient has not had any long-term sequelae from this and currently denies any left knee pain. He currently denies any fevers, chills, or feelings of illness. He denies any numbness, tingling, or any other associated signs or symptoms or modifying factors. Past Med Surg Social Fam HX - Past Medical History Medical history: DVT Additional medical history: Hydrocele, LUE cellulitis Psychiatric history: no psych history - Past Surgical History Surgical History: other Additional surgical history: scrotal sx. knee replacement. dental surgery - Social History Smoking Status: Never smoker Smokeless Tobacco Status: No Alcohol use: none Drug use: none - Family History Father Hx Family Cardiac Disorders: Yes Medications and Allergies Rivaroxaban [Xarelto] 20 mg PO 1700 11/03/16 [History] Ascorbate Calcium [Vitamin C] 500 mg PO TID 05/16/18 [History] Cholecalciferol (D-3) [Vitamin D] 5,000 unit PO DAILY 05/16/18 [History] Cyanocobalamin (Vitamin B-12) [B-12] 500 mcg PO DAILY 05/16/18 [History] Niacinamide [Niacin] 500 mg PO BID 05/16/18 [History] Vitamin E (Dl,Tocopheryl Acet) [Vitamin E] 400 unit PO DAILY 05/16/18 [History] Acetaminophen [Non-Aspirin] 650 mg PO Q6H PRN 06/08/18 [History] Allergy/AdvReac Type Severity Reaction Status Date / Time cephalexin [From Keflex] AdvReac Rash Verified 09/14/16 13:26 All Systems Reviewed: Constitutional -The patient denies any fevers, chills, or feelings of illness Neurologic -The patient denies any numbness, tingling, or burning pains Physical Exam - Constitutional Vitals: Temp Pulse Resp BP Pulse Ox 98.4 F 88 17 128/73 97 06/13/18 10:59 06/13/18 10:59 06/13/18 10:59 06/13/18 10:59 06/13/18 10:59 CONSTITUTIONAL -Vitals: Reviewed -General Appearance: The patient is well developed, well nourished, well groomed PSYCHIATRIC -Orientation: Fully alert and oriented to person, place, and time -Mood and Affect: Pleasant MUSCULOSKELETAL Gait: Normal LEFT UPPER EXTREMITY -Inspection: Generalized swelling of the extremity most focal to the hand and wrist area. -Wounds: Absent -Erythma: Absent -Palpable lesions: None -Tenderness: Generalized diffuse tenderness about the wrist but most focal to the radiocarpal area dorsally. -Range of motion elbow: Full -Range of forearm rotation: Full -Range of motion wrist: Decreased with moderate pain on passive motion -Range of motion: digits: Full -Digital flexion: Present -Digital extension: Present -Thumb extension: Present -Can make an "okay" sign: Yes -Intrinsic function: Present -Thumb opposition: Present -Strength and tone at elbow: 5/5 strength with elbow flexion and extension; tone normal -Strength and tone at wrist: Decreased. -Spot Worker strength and tone: 5/5 strength with metal cnc operator: tone normal -Sensation: Intact to light touch at the median, radial, and ulnar distributions; Intact to light touch at the fingertips. -Fingertips: Well perfused with good capillary refill -Radial artery pulse: Intact Stability assessment -Elbow: No instability -Wrist: No instability -Digits: No instability -Dowd Shift Test: Negative -Scapholunate ballotment: Negative Diagnostic Imaging: I did personally review and interpret prior hand x-rays from about 3 weeks ago which show no fractures or dislocations. Arthritis is noted, particularly at the DRUJ. 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 CT scans obtained 3 weeks ago and during this hospitalization do show polyarticular arthritis involving the shoulder, elbow, and wrist without drainable fluid collections. MRI does show similar findings as the CT scan with the addition of a mild synovitis and small joint effusion and nonspecific bony edema. Results - Labs Result Diagrams: 06/13/18 03:59 06/13/18 03:59 Labs: Abnormal lab results RBC 4.02 M/mcL (4.19-5.50) L 06/13/18 03:59 Hgb 11.9 g/dL (12.9-16.9) L 06/13/18 03:59 Hct 36.5 % (37.5-50.1) L 06/13/18 03:59 RDW 14.7 % (11.5-14.5) H 06/13/18 03:59 MPV 9.0 fL (9.4-12.4) L 06/13/18 03:59 Microcytosis Present (Not Present) A 06/07/18 15:39 ESR 77 mm/hr (0-10) H 06/13/18 03:59 Glucose 120 mg/dL (70-105) H 06/13/18 03:59 C-Reactive Protein 73 mg/L (Less than 10) H 06/13/18 03:59 Vancomycin Trough 16 mcg/mL (5-10) H 06/12/18 03:35 H & H 06/13/18 Range/Units 03:59 Hgb 11.9 L (12.9-16.9) g/dL Hct 36.5 L (37.5-50.1) % All other labs normal. Consult Discharge Plan - Plan Referrals: Fiorella Gooden CNP [Primary Care Provider] - 06/19/18 9:00 am
[2018-06-13] MEDS: *HR* Rivaroxaban 10 MG TABLET PO SCH (17:57)
[2018-06-13 18:45] LABS: Appearance,Synovial Fluid Bloody (Clear-Hazy); Color,Synovial Fluid Red (Straw)
[2018-06-14 04:47] LABS: Basophils % 0.2 %; Eosinophils # 0.2 K/mcL (0.0-0.6); Eosinophils % 2.9 %; Hematocrit 33.1 % (37.5-50.1); Hemoglobin 10.8 g/dL (12.9-16.9); Immature Granulocytes % 1.5 % (0-4); Lymphocytes # 0.8 K/mcL (0.6-4.6); Lymphocytes % 9.1 %; Mean Corpuscular HGB Conc 32.6 g/dL (31.6-35.5); Mean Corpuscular Hemoglobin 29.3 pg (28.0-33.3); Mean Corpuscular Volume 89.9 fL (83.0-100.0); Mean Platelet Volume 8.6 fL (9.4-12.4); Monocytes % 12.2 %; Neutrophils # 6.1 K/mcL (1.6-8.9); Platelet Count 241 K/mcL (140-400); Red Blood Count 3.68 M/mcL (4.19-5.50); Red Cell Distribution Width 14.9 % (11.5-14.5); Segmented Neutrophils % 74.1 %
[2018-06-14 05:10] LABS: BUN/Creatinine Ratio 21 (6-26); Blood Urea Nitrogen 16 mg/dL (8-23); Calcium 8.8 mg/dL (8.6-10.3); Carbon Dioxide 23 mEq/L (23-29); Chloride 102 mEq/L (98-107); Glucose 125 mg/dL (70-105); Osmolality,Calculated 281 (280-300); Potassium 4.1 mEq/L (3.5-5.1); Sodium 134 mEq/L (136-145); eGFR For Non-African Americans > 60 (> 60)
--- NOTE | 2018-06-14 07:25 | Orthopedics Progress Note ---
Date of Encounter: 06/14/18 Time of Encounter: 07:22 - Assessment and Plan (1) Cellulitis Current Visit: Yes Status: Acute Qualifiers: Site of cellulitis: extremity Site of cellulitis of extremity: upper extremity Laterality: left Qualified Code(s): L03.114 - Cellulitis of left upper limb Subjective Interval history: S: Resting in bed comfortably. No issues overnight. Was given a splint last night which he thinks may have helped. O: Afebrile on the vital signs are stable Left hand swelling appears to have improved. No redness or concern for persistent cellulitis. Mild edema. Improved motion of the left wrist and digits. Neurovascularly intact Gram stain of the left wrist aspirate did not show any organisms A: Pain and swelling of the left wrist, improved overnight with observation, ant ibiotics, bracing, and elevation P: At this point my recommendation is continued observation, elevation, splinting. ID following. We will follow up left wrist aspirate for culture. Objective Vital signs: Vital Signs Temp Pulse Resp BP Pulse Ox 06/14/18 04:28 98.5 F 79 17 128/75 96 06/14/18 00:15 99.8 F H 82 17 138/76 94 06/13/18 20:40 99.8 F H 87 17 138/73 98 06/13/18 17:54 99 F 83 18 114/76 96 06/13/18 15:23 100.3 F H 89 16 146/73 95 06/13/18 10:59 98.4 F 88 17 128/73 97 Intake and Output 06/13/18 06/13/18 06/14/18 15:59 23:59 07:59 Intake Total 360 / 360 840 / 840 Output Total 0 / 0 Balance 360 / 360 840 / 840 Intake: Oral 360 / 360 840 / 840 Output: Urine 0 / 0 Other: Meal NPO Lunch Dinner Percent of Meal Consumed 100% 100% # Voids 1 Weight 118.9 kg Patient Weight 06/14/18 23:59 Weight 118.9 kg - Labs CBC & BMP: 06/14/18 04:34 06/14/18 04:34 Labs: Abnormal lab results RBC 3.68 M/mcL (4.19-5.50) L 06/14/18 04:34 Hgb 10.8 g/dL (12.9-16.9) L 06/14/18 04:34 Hct 33.1 % (37.5-50.1) L 06/14/18 04:34 RDW 14.9 % (11.5-14.5) H 06/14/18 04:34 MPV 8.6 fL (9.4-12.4) L 06/14/18 04:34 Microcytosis Present (Not Present) A 06/07/18 15:39 ESR 77 mm/hr (0-10) H 06/13/18 03:59 Sodium 134 mEq/L (136-145) L 06/14/18 04:34 Glucose 125 mg/dL (70-105) H 06/14/18 04:34 C-Reactive Protein 73 mg/L (Less than 10) H 06/13/18 03:59 Synovial Appearance Bloody (Clear-Hazy) A 06/13/18 16:00 Vancomycin Trough 16 mcg/mL (5-10) H 06/12/18 03:35 Consult Discharge Plan - Plan Referrals: Fiorella Gooden, BUILDING COMPONENTS DESIGNER [Primary Care Provider] - 06/19/18 9:00 am
[2018-06-14] MEDS: Cholecalciferol (D-3) 1,000 UNIT TABLET PO SCH (07:38)
[2018-06-14] MEDS: Cyanocobalamin (B-12) 1,000 MCG TABLET PO SCH (07:38)
[2018-06-14] MEDS: Niacin (24 HR) 500 MG TAB.ER.24H PO SCH ×2 (07:38→20:10)
[2018-06-14] MEDS: Ascorbic Acid 500 MG TABLET PO SCH ×3 (07:38→20:11)
[2018-06-14] MEDS: Nystatin POWDER 30 GM BOTTLE TP SCH ×3 (07:40→20:14)
--- NOTE | 2018-06-14 08:55 | Event Note ---
Date of Encounter: 06/14/18 Time of Encounter: 08:47 Patient was seen and examined. I agree with the progress note as written by the resident physician. Patient is being treated for left arm infection/cellulitis. Evaluated here by both orthopedics and infectious disease. Maintained on IV antibiotics with vancomycin. Symptoms improvement seems to have plateaued and eventually the patient underwent MRIs of the left upper extremity and underwent arthrocentesis on 06/13/2018 with purulent cultures negative to date. The patient is afebrile. Hemodynamically stable. GEN: NAD CVS: RRR. S1, S2, No m/r/g RESP: CTAB ABD: Soft, NT, ND, +BS EXT: left writs with swelling but no erythem.. 2+ DP. No rashes NEURO: Nonfocal Continue current IV antibiotics with vancomycin. Follow-up recommendations from both orthopedics and infectious disease to see if patient can be discharged Cultures are negative so far ESR/CRP high. Uric acid normal Consider prednisone course? Hemodynamically stable.
--- NOTE | 2018-06-14 09:38 | Infectious Disease Progress No ---
Date of Encounter: 06/14/18 Time of Encounter: 08:50 - Assessment and Plan (1) Sepsis Current Visit: No Status: Resolved The patient had 2 sepsis criteria. Likely secondary to left arm cellulitis. Resolved. Low-grade fever overnight Tmax 100.3 WBC normal. Blood cultures drawn set is negative. Recommendations: Avoid further BP/lab sticks in the LUE. Await wrist arthrocentesis cultures to finalize. Check ROBERTO and rheumatoid factor. Consider rheumatology to evaluate. Splinting/pain management per ortho's recommendations. Continue vancomycin IV. Pharmacy to dose. Goal trough approximately 15. Duration of treatment depends on the clinical picture. Recommend continued IV antibiotics while inpatient with plans to transition to PO doxycycline and Keflex on discharge to complete a 14 day course of treatment. Monitor renal function and for drug toxicity and dose adjust antibiotics. Qualifiers: Sepsis type: sepsis due to unspecified organism Qualified Code(s): A41.9 - Sepsis, unspecified organism (2) Cellulitis Current Visit: Yes Status: Acute Location: Left upper extremity. Causative organism: Unclear. Etiology: Unclear. Failed outpatient oral antibiotic therapy (Bactrim and Amoxicillin) CT of the left upper extremity negative for abscess or osseous abnormality. No septic arthritis of the elbow, forearm, or wrists are noted to indicate a possible source control issue. MRI of the left hand shows some subcutaneous edema, but clinically does not look like cellulitis at this point. Status post left wrist arthrocentesis. Cultures are no growth and gram stain is negative. No erythema or warmth noted. ESR and CRP elevated, maybe this is autoimmune? Currently on IV vancomycin. Qualifiers: Site of cellulitis: extremity Site of cellulitis of extremity: upper extremity Laterality: left Qualified Code(s): L03.114 - Cellulitis of left upper limb (3) TFCC (triangular fibrocartilage complex) tear Current Visit: Yes Status: Acute Location: Left wrist. Etiology: unclear. Appreciate ortho's recommendations. Pain management per the primary team. Qualifiers: Encounter type: initial encounter Laterality: left Qualified Code(s): S63.592A - Other specified sprain of left wrist, initial encounter (4) Left shoulder pain Current Visit: Yes Status: Chronic Likely secondary to left arm cellulitis and chronic degenerative changes. CT shows severe degenerative changes of the bilateral glenohumeral joints with bilateral glenohumeral joint effusions, but no evidence of septic arthritis. Pain management per the primary team. K-pad PRN. Qualifiers: Chronicity: chronic Qualified Code(s): M25.512 - Pain in left shoulder; G89.29 - Other chronic pain (5) History of DVT (deep vein thrombosis) Current Visit: Yes Status: Chronic - Subjective Interval history: Patient seen and examined. No acute events noted overnight. Low-grade fever noted overnight, but patient asymptomatic. Patient states overall he feels well today, but thinks he slept wrong and has some neck and back stiffness. States the edema to his left hand and wrist persists and is about the same. Reports mild pain in the left shoulder and elbow. Denies subjective fevers or chills or rigors. Denies chest pain, shortness of breath, or cough. Denies nausea, vomiting, diarrhea, or constipation. Denies abdominal pain or urinary complai nts. Denies any oral thrush or new skin lesions. Infect Dis PN-Objective Data - Labs CBC & Chem 7: 06/14/18 04:34 06/14/18 04:34 Labs: Laboratory Results - last 24 hr 06/13/18 06/13/18 06/13/18 03:59 03:59 16:00 WBC RBC Hgb Hct MCV MCH MCHC RDW Plt Count MPV Immature Gran % Seg Neutrophils % Lymphocytes % Monocytes % Eosinophils % Basophils % Neutrophils # Lymphocytes # Monocytes # Eosinophils # Basophils # ESR 77 H Sodium Potassium Chloride Carbon Dioxide BUN Creatinine Est GFR ( Amer) Est GFR (Non-Af Amer) BUN/Creatinine Ratio Glucose Calculated Osmolality Calcium C-Reactive Protein 73 H Synovial Source Synovial Color Synovial Appearance Synovial Volume Synovial RBC Synovial Tot Nuc Cell Synovial Seg Neuts % Synovial Lymphocytes % Synovial Other Cells % Synovial Crystals No Crystals Seen 06/13/18 06/14/18 06/14/18 16:00 04:34 04:34 WBC 8.3 RBC 3.68 L Hgb 10.8 L Hct 33.1 L MCV 89.9 MCH 29.3 MCHC 32.6 RDW 14.9 H Plt Count 241 MPV 8.6 L Immature Gran % 1.5 Seg Neutrophils % 74.1 Lymphocytes % 9.1 Monocytes % 12.2 Eosinophils % 2.9 Basophils % 0.2 Neutrophils # 6.1 Lymphocytes # 0.8 Monocytes # 1.0 Eosinophils # 0.2 Basophils # 0.0 ESR Sodium 134 L Potassium 4.1 Chloride 102 Carbon Dioxide 23 BUN 16 Creatinine 0.77 Est GFR ( Amer) > 60 Est GFR (Non-Af Amer) > 60 BUN/Creatinine Ratio 21 Glucose 125 H Calculated Osmolality 281 Calcium 8.8 C-Reactive Protein Synovial Source Left wrist Synovial Color Red Synovial Appearance Bloody A Synovial Volume 0.5 Synovial RBC TNP Synovial Tot Nuc Cell TNP Synovial Seg Neuts % 91.0 Synovial Lymphocytes % 4.0 Synovial Other Cells % 5.0 Synovial Crystals Cultures: Cultures 06/13/18 16:00 Body Fluid Culture - Preliminary Synovial Fluid 06/08/18 12:55 Blood Culture - Final Peripheral Venipuncture No growth. Final report. 06/08/18 12:59 Blood Culture - Final Peripheral Venipuncture No growth. Final report. 06/07/18 15:45 Blood Culture - Final Peripheral Venipuncture No growth. Final report. Serology 06/13/18 06/13/18 Range/Units 16:00 16:00 Synovial Source Left wrist Synovial Color Red (Straw) Synovial Appearance Bloody A (Clear-Hazy) Synovial Volume 0.5 mL Synovial RBC TNP Synovial Tot Nuc Cell TNP Synovial Seg Neuts % 91.0 % Synovial Lymphocytes % 4.0 % Synovial Other Cells % 5.0 % Synovial Crystals No Crystals Seen (None Seen) - Impressions Impressions Joint Aspiration/Injection 06/13/18 00:00 IMPRESSION: Minimal fluid aspirated from the distal radioulnar joint. Patient tolerated the procedure and was sent back to his room. D/ / Rayna Estrada MD / Rayna Estrada MD Interpreting Provider: Rayna Estrada MD Exam - Constitutional Vitals: Temp Pulse Resp BP Pulse Ox 99.3 F 76 20 127/72 95 06/14/18 07:27 06/14/18 07:27 06/14/18 07:27 06/14/18 07:27 06/14/18 07:40 General appearance: cooperative, no acute distress, obese - Head Head exam: Present: atraumatic, normal inspection, normocephalic - Eye Eye exam: Present: EOMI, normal appearance, PERRL Pupils: Present: normal accommodation - ENT ENT exam: Present: mucous membranes moist - Neck Neck exam: Present: normal inspection - Respiratory Respiratory exam: Present: CTAB. Absent: rales, respiratory distress, rhonchi, wheezes - Cardiovascular Cardiovascular exam: Present: RRR, +S1, +S2 - GI/Abdominal GI/Abdominal exam: Present: distended (obese), normal bowel sounds, soft. Absent: tenderness - Extremities Exam Extremities exam: Present: joint swelling (left wrist.), tenderness (left hand/wrist). Absent: normal inspection (Mild edema noted to the left hand/wrist without erythema or warmth.), pedal edema - Neurological Exam Neurological exam: Present: alert, oriented X3, no focal deficits - Psychiatric Psychiatric exam: Present: normal affect, normal mood - Skin Skin exam: Present: dry, intact, normal color, warm Consult Discharge Plan - Plan Referrals: Fiorella Gooden, PRODUCE ASSOCIATE [Primary Care Provider] - 06/19/18 9:00 am - Attending Attestation I have personally performed a face to face evaluation on this patient. I have reviewed and agree with the care plan. History and Exam by me shows: Assessment and plan Left hand swelling and erythema likley inflammatory. d/w Dr. Sahu MRI reviewed arthrocentesis noted Appreciate orthopedic recommendation Continue antibiotics for now consider switching to orals
--- NOTE | 2018-06-14 13:33 | Internal Med Progress Note ---
Hospitalist Progress Note - Encounter Date of Encounter: 06/14/18 Time of Encounter: 10:10 - Subjective Interval History: Mr. Becerril is a 78M with PMH of DVT of left LE on Xarelto, and PVD. He originally presented on 06/07 for worsening left arm infection. He was recently admitted about 3 weeks ago for cellulitis of the left upper extremity. During that admission, he did have positive blood culture for Staph hominis in 1 of 2 sets which is thought to be contaminate. He was discharged home on Bactrim in stable condition. Pt seen and examined at bedside. Pt states his wrist continues to feel swollen and painful. States his hand feels remains weak with no interval change since yesterday, but states the splint helps. Denies any fever or chills. Denies any chest pain, shortness of breath, abdominal pain, nausea, vomiting, diarrhea, or constipation. No headaches, numbness, or tingling. - Exam Vitals: Temp Pulse Resp BP Pulse Ox 98.4 F 78 20 116/71 97 06/14/18 11:30 06/14/18 11:30 06/14/18 11:30 06/14/18 11:30 06/14/18 11:30 Exam: General: well developed, well nourished male in no acute distress Head: normocephalic and atraumatic Eyes: PERRL, EOMI, sclera anicteric, conjunctiva pink Neck: supple, trachea midline Lungs: CTA bilaterally. non-labored breathing on room air. no wheezes, rales, or rhonchi Heart: RRR +s1 +s2 No murmurs, clicks, or rubs GI: abdomen soft, non-tender, non-distended. normoactive bowel sounds Extremities: edema of left forearm improved, erythema of left arm has resolved. TTP of left wrist. Decreased ROM of wrist. No edema or cyanosis of LEs. Erythema of left axilla is present, only slightly improved since yesterday. Chronic venous statis changes to bilateral LEs. Neuro: A&Ox3. no focal deficits. no speech difficulty or abnormality. sensation intact. 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 - Assessment and Plan (1) Osteoarthritis of left wrist Current Visit: Yes Status: Suspected Assessment and Plan: Suspect continued swelling and pain of left wrist/hand is 2/2 osteoarthritis MRI of left wrist/hand - Degenerative cystic changes throughout the wrist suggestive of mild-moderate osteoarthritis. - No acute osseous abnormalities - No organized drainable fluid collection Underwent fluoroscopy guided joint fluid aspiration on 06/13 Synovial fluid analysis from left wrist revealed bloody fluid with no crystals visualized Synovial fluid culture - pending Ortho is on board - recommend awaiting synovial fluid culture results. Continue splint use. Will trial 10mg Prednisone daily (2) Cellulitis Current Visit: Yes Status: Acute Assessment and Plan: Cellutitis of left UE CT of left arm showed non-specific edema with no orgazined drainable fluid collection LUE doppler negative for DVT or SVT Blood culture result, no growth to date. MRI of wrist and hand showed degenerative changes with no organized drainable fluid Uric acid level normal - does NOT rule out acute flair Underwent fluoroscopy guided synovial joint aspiration of the wrist on 06/13 Continue IV Vanc ID on board Ortho plan as above (3) Sepsis Current Visit: No Status: Resolved Assessment and Plan: 2 SIRS criteria on admission, fever and tachycardia. Source is LUE cellulitis Blood cultures no growth to date. Sepsis resolved, however continue IV Vanc at this time ID on board (4) History of DVT (deep vein thrombosis) Current Visit: Yes Status: Chronic Assessment and Plan: of left lower extremity. No acute issues. Continue Xarelto (5) Left shoulder pain Current Visit: Yes Status: Chronic Assessment and Plan: CT of left upper extremity with findings as below: - Severe degenerative changes of the bilateral glenohumeral joints with bilateral glenohumeral effusion present. - Hydroxyapatite deposition involving the left supraspinatus and infraspinatus tendons compatible with calcific tendinosis. 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 (7) Renal cyst Current Visit: Yes Status: Acute Assessment and Plan: 2.1 cm cyst within the superior pole of the left kidney as seen on CT Per radiology report: No additional follow-up is necessary DVT Prophylaxis: on Xarelto - Time Spent with Patient Total time spent is greater than 50% in coordination of care (as documented) at patient's floor/unit and/or counseling patient: Internal Medicine: Result - Labs CBC & Chem 7: 06/14/18 04:34 06/14/18 04:34 Labs: Short CBC 06/14/18 Range/Units 04:34 WBC 8.3 (4.3-11.1) K/mcL Hgb 10.8 L (12.9-16.9) g/dL Hct 33.1 L (37.5-50.1) % Plt Count 241 (140-400) K/mcL Neutrophils # 6.1 (1.6-8.9) K/mcL BMP 06/14/18 04:34 Sodium 134 L Potassium 4.1 Chloride 102 Carbon Dioxide 23 BUN 16 Creatinine 0.77 Glucose 125 H Calcium 8.8 - Impressions Impressions Joint Aspiration/Injection 06/13/18 00:00 IMPRESSION: Minimal fluid aspirated from the distal radioulnar joint. Patient tolerated the procedure and was sent back to his room. D/ / Rayna Estrada MD / Rayna Estrada MD Interpreting Provider: Rayna Estrada MD Consult Discharge Plan - Plan Referrals: Fiorella Gooden, LION TRAINER [Primary Care Provider] - 06/19/18 9:00 am (1) Osteoarthritis of left wrist Qualifiers: Osteoarthritis type: unspecified Qualified Code(s): M19.032 - Primary osteoarthritis, left wrist (2) Cellulitis Qualifiers: Site of cellulitis: extremity Site of cellulitis of extremity: upper extremity Laterality: left Qualified Code(s): L03.114 - Cellulitis of left upper limb (3) Sepsis Qualifiers: Sepsis type: sepsis due to unspecified organism Qualified Code(s): A41.9 - Sepsis, unspecified organism (5) Left shoulder pain Qualifiers: Chronicity: chronic Qualified Code(s): M25.512 - Pain in left shoulder; G89.29 - Other chronic pain
[2018-06-14] MEDS: predniSONE 10 MG TABLET PO SCH (14:06)
[2018-06-14] MEDS: *HR* HYDROcodone/Acet 5/325 mg TABLET PO PRN ×2 (14:18→20:14)
[2018-06-14 15:30] LABS: Adenovirus Not Detected (Not Detect); Bordetella Pertussis Not Detected (Not Detect); Chlamydophila pneumoniae Not Detected (Not Detect); Coronavirus 229E Not Detected (Not Detect); Coronavirus HKU1 Not Detected (Not Detect); Coronavirus NL63 Not Detected (Not Detect); Coronavirus OC43 Not Detected (Not Detect); Human Metapneumovirus Not Detected (Not Detect); Human Rhinovirus/Enterovirus Not Detected (Not Detect); Influenza A Subtype 2009 H1 Not Detected (Not Detect); Influenza A Untypeable Not Detected (Not Detect); Influenza B Not Detected (Not Detect); Mycoplasma pneumoniae Not Detected (Not Detect); Parainfluenza Virus 1 Not Detected (Not Detect); Parainfluenza Virus 2 Not Detected (Not Detect); Parainfluenza Virus 3 Not Detected (Not Detect); Parainfluenza Virus 4 Not Detected (Not Detect); Respiratory Syncytial Virus Not Detected (Not Detect)
--- NOTE | 2018-06-14 17:21 | Rheumatology Consult Note ---
Date of Encounter: 06/14/18 Time of Encounter: 13:00 Rheumatology Assess and Plan (1) Inflammatory arthritis Current Visit: Yes Status: Acute Nash has an effusion of the left wrist and pain/swelling of his left extremity. He has been treated with antibiotics and has not improved. Infectious workup thus far negative this admission though final culture still pending. On review of his imaging, he does have chondrocalcinosis of the TFC and possibly along the MCPs. 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 - Previous uric acid levels negative in 05/27 and 06/27 though during attacks these could be falsely low; crystals negative. CRP/ESR elevated. - I have discussed the case with Dr. Hsu. Given no improvement, we may need to consider this form of inflammatory arthritis. As we are covering for infections, will treat an inflammatory cause and give prednisone 40 mg today and see how he does clinically. I discussed also with the medicine team, Dr. Saenz. (2) Chondrocalcinosis Current Visit: Yes Status: Acute (3) CRP elevated Current Visit: Yes Status: Acute Rheumatology HPI Consult date: 06/14/18 Requesting physician: Aileen Roman Consult reason: arthritis Chief complaint: wrist pain History of present illness: Mr. Arcos is a 78 year old male with PMH of DVT, PVD who presents to the hospital with swelling on his left hand. This patient was previously admitted for cellulitis, treated with bactrim. After discharge, he reports he never necessarily improved and went on another course of antibiotics. He reports that he continued to have redness, warmth and swelling. This went from his wrist and he felt as though his elbow, shoulder and neck started to feel stiff as well. He had a workup that included xrays of the hands; he had chondrocalcinosis noted. Previous CT on 05/16/18 with subcutaneous edema consistent with cellulitis. MRI at this admission on 06/12/18 with osteoarthritis, tenosynovitis and synovitis. He has had blood cultures negative and an aspiration without bacteria and no growth to date. He has been covered with antibiotics. Previous uric acid and level this admission was normal. Past Med Surg Social Fam HX - Past Medical History Medical history: DVT Additional medical history: Hydrocele, LUE cellulitis Psychiatric history: no psych history - Past Surgical History Surgical History: other Additional surgical history: scrotal sx. knee replacement. dental surgery - Social History Smoking Status: Never smoker Smokeless Tobacco Status: No Alcohol use: none Drug use: none - Family History Father Hx Family Cardiac Disorders: Yes Medications and Allergies Rivaroxaban [Xarelto] 20 mg PO 1700 11/03/16 [History] Ascorbate Calcium [Vitamin C] 500 mg PO TID 05/16/18 [History] Cholecalciferol (D-3) [Vitamin D] 5,000 unit PO DAILY 05/16/18 [History] Cyanocobalamin (Vitamin B-12) [B-12] 500 mcg PO DAILY 05/16/18 [History] Niacinamide [Niacin] 500 mg PO BID 05/16/18 [History] Vitamin E (Dl,Tocopheryl Acet) [Vitamin E] 400 unit PO DAILY 05/16/18 [History] Acetaminophen [Non-Aspirin] 650 mg PO Q6H PRN 06/08/18 [History] Allergy/AdvReac Type Severity Reaction Status Date / Time cephalexin [From Keflex] AdvReac Rash Verified 09/14/16 13:26 All Systems Review: The remainder of the systems were reviewed and are negative Review of Systems: General - no recent weight loss, fevers Eyes - no redness, loss of vision, photophobia ENT - oral ulcerations, nasal ulcerations, sore throat Cardiovascular - no chest pain, palpitations, lightheadedness, syncope Respiratory - no shortness of breath, difficulty breathing at night, pleuritic chest pain and no cough Gastrointestinal - no nausea, vomiting, diarrhea, bloating, black/tarry stools, blood in stools or heartburn Genitourinary - no pain on urination, hematuria, frothy urine or ulcerations. Musculoskeletal - + morning stiffness, +joint swelling, + muscle aches, + tendon/ligament swelling or tenderness, + neck pain Integumentary - no easy bruising, rashes, hives, + redness to left arm Neurological - no muscle weakness or paresthesias Otherwise ROS is negative unless mentioned above Rheumatology Exam Vital Signs, Last 4 Hours Temp Pulse Resp BP Pulse Ox 06/14/18 16:58 98.9 F 87 20 155/93 96 Exam: General - Alert and oriented x 3, no acute distress and appears comfortable HEENT - Conjunctiva clear, + male pattern hair thinning, no facial rash, no nasal or oral mucosal lesions/ulcerations Heme/Lymph - No cervical or supraclavicular lymph node enlargement or tenderness. No pallor. Heart - S1S2 regular in rate and rhythm without murmurs, clicks or rubs. + pitting edema of left extremity. Lungs - Unlabored breathing, clear to auscultation bilaterally without wheezes or crackles; no decrease in chest expansion Gastrointestinal - Soft, nontender, nondistended. Obese and unable to palpate any hepatosplenomegaly Skin - No nodules, tophi, psoriasis, + left arm erythema, no malar rash, telangiectasias, sclerodactyly, digital ulcers, induration Neurological - Gait normal, muscle strength 5/5 in lower extremities, left extremity limited due to pain, sensation intact Musculoskeletal - Full ROM, + left arm diffusely swollen with tenderness to left dorsal and and joints, + tenderness to movement of C spine. No petichiae, nail pitting, clubbing or onycholysis. Rheumatology Results 06/14/18 04:34 06/14/18 04:34 All other labs normal. Consult Discharge Plan - Plan Referrals: Fiorella Gooden CNP [Primary Care Provider] - 06/19/18 9:00 am
[2018-06-14] MEDS ORDERED: predniSONE 20 MG TABLET PO ONE (17:24)
[2018-06-14] MEDS: *HR* Rivaroxaban 10 MG TABLET PO SCH (17:43)
[2018-06-15 03:17] LABS: Basophils % 0.1 %; Hemoglobin 11.7 g/dL (12.9-16.9); Immature Granulocytes % 0.9 % (0-4); Lymphocytes # 0.5 K/mcL (0.6-4.6); Lymphocytes % 4.7 %; Mean Corpuscular HGB Conc 32.5 g/dL (31.6-35.5); Mean Corpuscular Volume 89.1 fL (83.0-100.0); Mean Platelet Volume 8.4 fL (9.4-12.4); Monocytes # 0.4 K/mcL (0.0-1.3); Monocytes % 3.6 %; Neutrophils # 8.9 K/mcL (1.6-8.9); Platelet Count 276 K/mcL (140-400); Red Blood Count 4.04 M/mcL (4.19-5.50); Red Cell Distribution Width 14.4 % (11.5-14.5); Segmented Neutrophils % 90.7 %
[2018-06-15 03:36] LABS: BUN/Creatinine Ratio 23 (6-26); Blood Urea Nitrogen 16 mg/dL (8-23); Calcium 9.2 mg/dL (8.6-10.3); Carbon Dioxide 24 mEq/L (23-29); Chloride 102 mEq/L (98-107); Glucose 176 mg/dL (70-105); Osmolality,Calculated 281 (280-300); Potassium 4.3 mEq/L (3.5-5.1); Sodium 133 mEq/L (136-145); eGFR For Non-African Americans > 60 (> 60)
[2018-06-15] MEDS: *HR* HYDROcodone/Acet 5/325 mg TABLET PO PRN (05:54)
--- NOTE | 2018-06-15 08:15 | Orthopedics Progress Note ---
Date of Encounter: 06/15/18 Time of Encounter: 08:14 - Assessment and Plan (1) Cellulitis Current Visit: Yes Status: Acute Qualifiers: Site of cellulitis: extremity Site of cellulitis of extremity: upper extremity Laterality: left Qualified Code(s): L03.114 - Cellulitis of left upper limb Subjective Interval history: S: Resting in bed comfortably. Improvement in the left wrist. O: Afebrile on the vital signs are stable Left hand swelling appears to have improved. No redness or concern for pers istent cellulitis. Mild edema. Improved motion of the left wrist and digits. Neurovascularly intact Cultures negative A: Pain and swelling of the left wrist, improved overnight with observation, ant ibiotics, bracing, and elevation P: At this point my recommendation is continued observation, elevation, splinting. Rheumatology is on board. Orthopedically stable for discharge. Follow-up with me in 2 weeks for clinical reevaluation or sooner if needed. Objective Vital signs: Vital Signs Temp Pulse Resp BP Pulse Ox 06/15/18 07:28 97.7 F 66 20 148/70 95 06/15/18 04:32 97.6 F 67 18 129/75 95 06/15/18 00:37 98 F 77 20 160/89 96 06/14/18 19:19 99.3 F 80 18 145/75 95 06/14/18 16:58 98.9 F 87 20 155/93 96 06/14/18 11:30 98.4 F 78 20 116/71 97 Intake and Output 06/14/18 06/15/18 06/15/18 23:59 07:59 15:59 Intake Total 600 / 600 Output Total 575 / 575 700 / 700 Balance 25 / 25 -700 / -700 Intake: Oral 600 / 600 Output: Urine 575 / 575 700 / 700 Other: Weight 117.6 kg Patient Weight 06/15/18 23:59 Weight 117.6 kg - Labs CBC & BMP: 06/15/18 03:07 06/15/18 03:07 Labs: Abnormal lab results RBC 4.04 M/mcL (4.19-5.50) L 06/15/18 03:07 Hgb 11.7 g/dL (12.9-16.9) L 06/15/18 03:07 Hct 36.0 % (37.5-50.1) L 06/15/18 03:07 MPV 8.4 fL (9.4-12.4) L 06/15/18 03:07 Lymphocytes # 0.5 K/mcL (0.6-4.6) L 06/15/18 03:07 Microcytosis Present (Not Present) A 06/07/18 15:39 ESR 77 mm/hr (0-10) H 06/13/18 03:59 Sodium 133 mEq/L (136-145) L 06/15/18 03:07 Glucose 176 mg/dL (70-105) H 06/15/18 03:07 C-Reactive Protein 73 mg/L (Less than 10) H 06/13/18 03:59 Synovial Appearance Bloody (Clear-Hazy) A 06/13/18 16:00 Vancomycin Trough 13 mcg/mL (5-10) H 06/15/18 03:07 Consult Discharge Plan - Plan Referrals: Fiorella Gooden TREASURY ANALYST [Primary Care Provider] - 06/19/18 9:00 am
--- NOTE | 2018-06-15 08:17 | Rheumatology Progress Note ---
Date of Encounter: 06/15/18 Time of Encounter: 08:00 Rheumatology Assess and Plan (1) Inflammatory arthritis Current Visit: Yes Status: Acute Improved. Final cultures still pending. From the JUL, appears the patient received 10 mg of prednisone at medicine's discretion. Overall still seems to have improved. He continues on vancomycin. 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 As long as cultures negative, would recommend prednisone 20 mg daily x 5 days. - I can follow up with Mr. Arcos in the outpatient in a few weeks. - I will otherwise be out of the hospital until Tuesday. (2) Chondrocalcinosis Current Visit: Yes Status: Acute (3) CRP elevated Current Visit: Yes Status: Acute - Subjective Interval history: Patient seen and examined. The medicine team gave the patient prednisone 10 mg. He has also continued on antibiotics. Reports 30-40% improvement in symptoms. Reports neck pain has improved. States he can make a fist and ROM improved. Cultures still pendin. ROS General - Denies fevers Skin - No rashes MSK - Swelling and ROM improved. Otherwise ROS negative unless stated above. Exam Vital Signs, Last 4 Hours Temp Pulse Resp BP Pulse Ox 06/15/18 07:28 97.7 F 66 20 148/70 95 06/15/18 04:32 97.6 F 67 18 129/75 95 Exam: General - Alert and oriented x 3, no acute distress Cardiac - Pitting edema of left extremity MSK - Swelling diffusely of left hand, unable to palpate MCPs. Able to make a fist with less pain. Skin - Less erythema to left extremity. Objective Data 06/15/18 03:07 06/15/18 03:07 All other labs normal. Consult Discharge Plan - Plan Referrals: Fiorella Gooden, METAL EXTRUSION SUPERVISOR [Primary Care Provider] - 06/19/18 9:00 am
[2018-06-15] MEDS: Cyanocobalamin (B-12) 1,000 MCG TABLET PO SCH (08:43)
[2018-06-15] MEDS: Niacin (24 HR) 500 MG TAB.ER.24H PO SCH (08:43)
[2018-06-15] MEDS: Ascorbic Acid 500 MG TABLET PO SCH (08:44)
[2018-06-15] MEDS: Cholecalciferol (D-3) 1,000 UNIT TABLET PO SCH (08:44)
[2018-06-15] MEDS: predniSONE 10 MG TABLET PO SCH (08:58)
[2018-06-15] MEDS ORDERED: predniSONE 10 MG TABLET PO ONE (09:36)
--- NOTE | 2018-06-15 09:38 | Discharge Summary ---
<Adrian Saenz Jose Juan - Last Filed: 06/15/18 19:50> - NOTES TO OUTPATIENT PROVIDER Notes to Outpatient Provider: Mr. Arcos was admitted on 06/07 for worsening left arm infection refractory to Bactrim. He was initially placed on IV vancomycin, and the erythema of the arm improved. However he continued to complain of persistent left wrist and hand pain and swelling. Orthopedic surgery was consulted and ultimately the patient underwent flouroscopy guided synovial joint aspiration. Culture of the wrist synovial fluid was preliminarily negative ~48 hours at time of discharge. Dr. Sherwood with rheumatology evaluated the patient as well and recommended a short course of steroids. Pt was also discharged with precriptions for Doxycycline 100mg BID and Augmentin 875mg BID to complete a total of 14 day antibiotic course. Incidental 1.1cm right thyroid nodule noted on CT, recommend follow up with PCP. Orders not resulted at time of discharge: Pending orders 06/13/18 16:00 Culture,Body Fluid [RM] Stat 06/14/18 07:16 ROBERTO IgG IVON rflx IFA Routine 06/15/18 07:26 CCP IgG Routine Date of Encounter: 06/15/18 Time of Encounter: 10:00 - Discharge Diagnosis (1) Cellulitis Priority: Primary Status: Resolved Assessment and Plan: Cellutitis of left UE CT of left arm showed non-specific edema with no orgazined drainable fluid collection LUE doppler negative for DVT or SVT Blood culture result, no growth to date. MRI of wrist and hand showed degenerative changes with no organized drainable fluid Uric acid level normal - does NOT rule out acute flair Underwent fluoroscopy guided synovial joint aspiration of the wrist on 06/13 Transition to po abx to complete a 14 day course: Doxycycline 100mg BID and Augmentin 875mg BID Qualifiers: Site of cellulitis: extremity Site of cellulitis of extremity: upper extremity Laterality: left Qualified Code(s): L03.114 - Cellulitis of left upper limb (2) History of DVT (deep vein thrombosis) Priority: Secondary Status: Chronic Assessment and Plan: of left lower extremity. No acute issues. Continue Xarelto (3) Left shoulder pain Priority: Secondary Status: Chronic Assessment and Plan: CT of left upper extremity with findings as below: - Severe degenerative changes of the bilateral glenohumeral joints with bilateral glenohumeral effusion present. - Hydroxyapatite deposition involving the left supraspinatus and infraspinatus tendons compatible with calcific tendinosis. 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 Follow up with Dr. Sherwood in 2 weeks Hospital course: Mr. Arcos is a 78 year old male with PMH of DVT of left LE on Xarelto, and PVD. He was admitted on 06/07 for worsening left arm infection refractory to Bactrim. He was initially placed on IV vancomycin, and the erythema of the arm improved. However he continued to complain of persistent left wrist and hand pain and swelling. Orthopedic surgery was consulted and recommended bracing and elevation. The patient underwent flouroscopy guided synovial joint aspiration on 06/13. Culture of the wrist synovial fluid was preliminarily negative ~48 hours at time of discharge. Dr. Sherwood with rheumatology evaluated the patient as well and recommended a short course of steroids. Pt was also discharged with precriptions for Doxycycline 100mg BID and Augmentin 875mg BID to complete a total of 14 day antibiotic course. Incidental 1.1cm right thyroid nodule noted on CT, recommend follow up with PCP. Discharge discussed with: patient, nurse, service delivery consultant - Time Spent with Patient Total time spent providing and/or coordinating discharge services: - Discharge Medications Prescriptions: Amoxicillin/Clavulanate [Augmentin] 875 mg PO BIDWM 5 Days #11 tablet RX: Doxycycline 100 mg PO BID 5 Days #11 capsule RX: predniSONE [PredniSONE] 20 mg PO DAILY 3 Days #3 tablet Home Medications: RX: Rivaroxaban [Xarelto] 20 mg PO 1700 11/03/16 [History] RX: Ascorbate Calcium [Vitamin C] 500 mg PO TID 05/16/18 [History] RX: Cholecalciferol (D-3) [Vitamin D] 5,000 unit PO DAILY 05/16/18 [History] RX: Cyanocobalamin (Vitamin B-12) [B-12] 500 mcg PO DAILY 05/16/18 [History] RX: Niacinamide [Niacin] 500 mg PO BID 05/16/18 [History] RX: Vitamin E (Dl,Tocopheryl Acet) [Vitamin E] 400 unit PO DAILY 05/16/18 [History] RX: Acetaminophen [Non-Aspirin] 650 mg PO Q6H PRN 06/08/18 [History] Amoxicillin/Clavulanate [Augmentin] 875 mg PO BIDWM 5 Days #11 tablet 06/15/18 [Rx] RX: Doxycycline 100 mg PO BID 5 Days #11 capsule 06/15/18 [Rx] RX: Nystatin POWDER [Nystop] 1 appl TP TID bottle 06/15/18 [Rx] RX: predniSONE [PredniSONE] 20 mg PO DAILY 3 Days #3 tablet 06/15/18 [Rx] Allergies/Adverse Reactions: Allergy/AdvReac Type Severity Reaction Status Date / Time cephalexin [From Keflex] AdvReac Rash Verified 09/14/16 13:26 Date of admission: 06/07/18 18:40 Primary care physician: Fiorella Gooden CNP Consults: 06/08/18 14:45 Consult to Infectious Diseases [CONS] Routine Consulting Provider: [facility] Reason for Consult: Left UE Cellulitis, refractory to outpatient therapy with bactrim and amoxicillin Time Notified: 11:50 Call Completed: Yes 06/13/18 08:15 Consult to Orthopedic Surgery [CONS] Routine Consulting Provider: [facility] Reason for Consult: recurrent left upper extremity cellulitis, has hx of septic arthritis in Left knee Time Notified: 08:15 Call Completed: Yes 06/13/18 11:53 Consult to Interventional Radiology [CONS] Stat Consulting Provider: [facility] Reason for Consult: Fluoroscopic or ultrasound guided aspiration of the left wrist. Time Notified: 11:53 Call Completed: Yes 06/14/18 13:43 Consult to Rheumatology [CONS] Routine Consulting Provider: William Sherwood Reason for Consult: Elevated ESR and CRP, arthritis Time Notified: 13:44 Call Completed: Yes Discharging clinician: Adrian Diop Constitutional Vitals: Temp Pulse Resp BP Pulse Ox 97.7 F 66 20 148/70 95 06/15/18 07:28 06/15/18 07:28 06/15/18 07:28 06/15/18 07:28 06/15/18 07:28 General appearance: Present: cooperative, A&O X 3, pleasant, no acute distress, answers questions appropriately Exam: General: well developed, well nourished male in no acute distress Head: normocephalic and atraumatic Eyes: PERRL, EOMI, sclera anicteric, conjunctiva pink Neck: supple, trachea midline Lungs: CTA bilaterally. non-labored breathing on room air. no wheezes, rales, or rhonchi Heart: RRR +s1 +s2 No murmurs, clicks, or rubs GI: abdomen soft, non-tender, non-distended. normoactive bowel sounds Extremities: edema of left forearm improved significantly with complete resolution of erythema. No edema or cyanosis of LEs. Erythema of left axilla is present, but improved. Chronic venous statis changes to bilateral LEs. Neuro: A&Ox3. no focal deficits. no speech difficulty or abnormality. sensation intact. Skin: warm, dry, intact. - Patient Status Disposition: Home, Self-Care Condition: Fair Functional capacity at discharge: independent ambulation Overall status at discharge: patient is progressing back to baseline - Discharge Instructions Instructions: Atrial Fibrillation (DC), Cellulitis (GEN), Sepsis (DC) Follow Up With: William Sherwood DO [Partnered Physician] - 07/04/18 10:15 am () Fiorella Gooden CNP [Primary Care Provider] - 06/19/18 9:00 am - Diet and Activity Activity: increase activity as tolerated, resume usual activities as tolerated Diet: low fat, low cholesterol, low salt diet <Alhajjar,Osama M - Last Filed: 06/15/18 20:21> Orders not resulted at time of discharge: Pending orders 06/13/18 16:00 Culture,Body Fluid [RM] Stat 06/14/18 07:16 ROBERTO IgG IVON rflx IFA Routine 06/15/18 07:26 CCP IgG Routine Date of Encounter: 06/15/18 - Discharge Diagnosis (1) Cellulitis Status: Resolved Qualifiers: Site of cellulitis: extremity Site of cellulitis of extremity: upper extremity Laterality: left Qualified Code(s): L03.114 - Cellulitis of left upper limb (2) History of DVT (deep vein thrombosis) Status: Chronic (3) Left shoulder pain Status: Chronic Qualifiers: Chronicity: chronic Qualified Code(s): M25.512 - Pain in left shoulder; G89.29 - Other chronic pain (4) Thyroid nodule Status: Acute (5) Renal cyst Status: Acute (6) Inflammatory arthritis Status: Acute Hospital course: Mr. Arcos is a 78 year old male - Time Spent with Patient Total time spent providing and/or coordinating discharge services: Date of admission: 06/07/18 18:40 Primary care physician: Fiorella Gooden CNP Consults: 06/08/18 14:45 Consult to Infectious Diseases [CONS] Routine Consulting Provider: [facility] Reason for Consult: Left UE Cellulitis, refractory to outpatient therapy with bactrim and amoxicillin Time Notified: 11:50 Call Completed: Yes 06/13/18 08:15 Consult to Orthopedic Surgery [CONS] Routine Consulting Provider: [facility] Reason for Consult: recurrent left upper extremity cellulitis, has hx of septic arthritis in Left knee Time Notified: 08:15 Call Completed: Yes 06/13/18 11:53 Consult to Interventional Radiology [CONS] Stat Consulting Provider: [facility] Reason for Consult: Fluoroscopic or ultrasound guided aspiration of the left wrist. Time Notified: 11:53 Call Completed: Yes 06/14/18 13:43 Consult to Rheumatology [CONS] Routine Consulting Provider: William Sherwood Reason for Consult: Elevated ESR and CRP, arthritis Time Notified: 13:44 Call Completed: Yes - Constitutional Vitals: Temp Pulse Resp BP Pulse Ox 97.6 F 83 18 172/80 96 06/15/18 11:23 06/15/18 11:23 06/15/18 11:23 06/15/18 11:23 06/15/18 11:23 - Attending Attestation I examined this patient and my medical decision-making was reviewed with the Resident Physician. I agree with the documented discharge as above. GEN: NAD CVS: RRR. S1, S2, No m/r/g RESP: CTAB ABD: Soft, NT, ND, +BS EXT: No edema. 2+ DP. No rashes NEURO: Nonfocal
[2018-06-15] MEDS: Nystatin POWDER 30 GM BOTTLE TP SCH (10:48)
--- NOTE | 2018-06-15 10:58 | Infectious Disease Progress No ---
Date of Encounter: 06/15/18 Time of Encounter: 10:20 - Assessment and Plan (1) Sepsis Status: Resolved The patient had 2 sepsis criteria. Likely secondary to left arm cellulitis. Resolved. Afebrile. WBC normal. Blood cultures drawn set is negative. Recommendations: Avoid further BP/lab sticks in the LUE. Await wrist arthrocentesis cultures to finalize. Check ROBERTO and rheumatoid factor.--> pending. Splinting/pain management per ortho's recommendations. Steroids per rheumatology/primary team. Continue vancomycin IV. Pharmacy to dose. Goal trough approximately 15. (day 9) Duration of treatment depends on the clinical picture. Recommend continued IV antibiotics while inpatient with plans to transition to PO doxycycline 100mg BID and Augmentin 875mg PO BID on discharge to complete a 14 day course of treatment. Treat through 06/20/18. Monitor renal function and for drug toxicity and dose adjust antibiotics. Qualifiers: Sepsis type: sepsis due to unspecified organism Qualified Code(s): A41.9 - Sepsis, unspecified organism (2) Cellulitis Status: Resolved Location: Left upper extremity. Causative organism: Unclear. Etiology: Unclear. Failed outpatient oral antibiotic therapy (Bactrim and Amoxicillin) CT of the left upper extremity negative for abscess or osseous abnormality. No septic arthritis of the elbow, forearm, or wrists are noted to indicate a po ssible source control issue. MRI of the left hand shows some subcutaneous edema, but clinically does not look like cellulitis at this point. Status post left wrist arthrocentesis. Cultures are no growth and gram stain is negative. No erythema or warmth noted. ESR and CRP elevated, but likely inflammatory arthritis. Currently on IV vancomycin. Qualifiers: Site of cellulitis: extremity Site of cellulitis of extremity: upper extremity Laterality: left Qualified Code(s): L03.114 - Cellulitis of left upper limb (3) TFCC (triangular fibrocartilage complex) tear Status: Acute Location: Left wrist. Etiology: unclear. Appreciate ortho's recommendations. Pain management per the primary team. Qualifiers: Encounter type: initial encounter Laterality: left Qualified Code(s): S63.592A - Other specified sprain of left wrist, initial encounter (4) Left shoulder pain Status: Chronic Likely secondary to left arm cellulitis and chronic degenerative changes. CT shows severe degenerative changes of the bilateral glenohumeral joints with bilateral glenohumeral joint effusions, but no evidence of septic arthritis. Pain management per the primary team. K-pad PRN. Qualifiers: Chronicity: chronic Qualified Code(s): M25.512 - Pain in left shoulder; G89.29 - Other chronic pain (5) History of DVT (deep vein thrombosis) Status: Chronic (6) Inflammatory arthritis Status: Acute Location: Left wrist. ESR and CRP elevated, but no evidence of infection at this point. Rheumatology consulted and following. - Subjective Interval history: Patient seen and examined. No acute events noted overnight. Patient states overall he feels well today. Reports neck and back stiffness better. States the edema to his left hand and wrist is improved. Denies pain in the left shoulder and elbow. Denies subjective fevers or chills or rigors. Denies chest pain, shortness of breath, or cough. Denies nausea, vomiting, diarrhea, or constipation. Denies abdominal pain or urinary complaints. Denies any oral thrush or new skin lesions. Infect Dis PN-Objective Data - Labs CBC & Chem 7: 06/15/18 03:07 06/15/18 03:07 Labs: Laboratory Results - last 24 hr 06/14/18 06/15/18 06/15/18 14:17 03:07 03:07 WBC 9.8 RBC 4.04 L Hgb 11.7 L Hct 36.0 L MCV 89.1 MCH 29.0 MCHC 32.5 RDW 14.4 Plt Count 276 MPV 8.4 L Immature Gran % 0.9 Seg Neutrophils % 90.7 Lymphocytes % 4.7 Monocytes % 3.6 Eosinophils % 0.0 Basophils % 0.1 Neutrophils # 8.9 Lymphocytes # 0.5 L Monocytes # 0.4 Eosinophils # 0.0 Basophils # 0.0 Sodium Potassium Chloride Carbon Dioxide BUN Creatinine Est GFR ( Amer) Est GFR (Non-Af Amer) BUN/Creatinine Ratio Glucose Calculated Osmolality Calcium Vancomycin Trough 13 H Rheumatoid Factor Chlamy pneumoniae PCR Not Detected Adenovirus (PCR) Not Detected B. pertussis DNA (PCR) Not Detected B.parapertussis DNA PCR Not Detected Coronavirus OC43 (PCR) Not Detected Coronavirus HKU1 (PCR) Not Detected Coronavirus 229E (PCR) Not Detected Coronavirus NL63 (PCR) Not Detected Human Metapneumovir PCR Not Detected Influenza A (H1) PCR Not Detected Influ A (H1N1/09) PCR Not Detected Influenza A (H3) PCR Not Detected Influenza A Untype (PCR) Not Detected Influenza Type B (PCR) Not Detected M.pneumoniae DNA (PCR) Not Detected Parainfluenza 1 (PCR) Not Detected Parainfluenza 2 (PCR) Not Detected Parainfluenza 3 (PCR) Not Detected Parainfluenza 4 (PCR) Not Detected RSV (PCR) Not Detected Entero/Rhino (PCR) Not Detected 06/15/18 06/15/18 03:07 07:26 WBC RBC Hgb Hct MCV MCH MCHC RDW Plt Count MPV Immature Gran % Seg Neutrophils % Lymphocytes % Monocytes % Eosinophils % Basophils % Neutrophils # Lymphocytes # Monocytes # Eosinophils # Basophils # Sodium 133 L Potassium 4.3 Chloride 102 Carbon Dioxide 24 BUN 16 Creatinine 0.71 Est GFR ( Amer) > 60 Est GFR (Non-Af Amer) > 60 BUN/Creatinine Ratio 23 Glucose 176 H Calculated Osmolality 281 Calcium 9.2 Vancomycin Trough Rheumatoid Factor 17 H Chlamy pneumoniae PCR Adenovirus (PCR) B. pertussis DNA (PCR) B.parapertussis DNA PCR Coronavirus OC43 (PCR) Coronavirus HKU1 (PCR) Coronavirus 229E (PCR) Coronavirus NL63 (PCR) Human Metapneumovir PCR Influenza A (H1) PCR Influ A (H1N1/09) PCR Influenza A (H3) PCR Influenza A Untype (PCR) Influenza Type B (PCR) M.pneumoniae DNA (PCR) Parainfluenza 1 (PCR) Parainfluenza 2 (PCR) Parainfluenza 3 (PCR) Parainfluenza 4 (PCR) RSV (PCR) Entero/Rhino (PCR) Cultures: Cultures 06/13/18 16:00 Body Fluid Culture - Preliminary Synovial Fluid 06/08/18 12:55 Blood Culture - Final Peripheral Venipuncture No growth. Final report. 06/08/18 12:59 Blood Culture - Final Peripheral Venipuncture No growth. Final report. 06/07/18 15:45 Blood Culture - Final Peripheral Venipuncture No growth. Final report. Serology 06/14/18 06/13/18 06/13/18 Range/Units 14:17 16:00 16:00 Synovial Source Left wrist Synovial Color Red (Straw) Synovial Appearance Bloody A (Clear-Hazy) Synovial Volume 0.5 mL Synovial RBC TNP Synovial Tot Nuc Cell TNP Synovial Seg Neuts % 91.0 % Synovial Lymphocytes % 4.0 % Synovial Other Cells % 5.0 % Synovial Crystals No Crystals Seen (None Seen) Chlamy pneumoniae PCR Not Detected (Not Detect) Adenovirus (PCR) Not Detected (Not Detect) B. pertussis DNA (PCR) Not Detected (Not Detect) B.parapertussis DNA PCR Not Detected (Not Detect) Coronavirus OC43 (PCR) Not Detected (Not Detect) Coronavirus HKU1 (PCR) Not Detected (Not Detect) Coronavirus 229E (PCR) Not Detected (Not Detect) Coronavirus NL63 (PCR) Not Detected (Not Detect) Human Metapneumovir PCR Not Detected (Not Detect) Influenza A (H1) PCR Not Detected (Not Detect) Influ A (H1N1/09) PCR Not Detected (Not Detect) Influenza A (H3) PCR Not Detected (Not Detect) Influenza A Untype (PCR) Not Detected (Not Detect) Influenza Type B (PCR) Not Detected (Not Detect) M.pneumoniae DNA (PCR) Not Detected (Not Detect) Parainfluenza 1 (PCR) Not Detected (Not Detect) Parainfluenza 2 (PCR) Not Detected (Not Detect) Parainfluenza 3 (PCR) Not Detected (Not Detect) Parainfluenza 4 (PCR) Not Detected (Not Detect) RSV (PCR) Not Detected (Not Detect) Entero/Rhino (PCR) Not Detected (Not Detect) Exam - Constitutional Vitals: Temp Pulse Resp BP Pulse Ox 97.7 F 66 20 148/70 95 06/15/18 07:28 06/15/18 07:28 06/15/18 07:28 06/15/18 07:28 06/15/18 07:28 General appearance: cooperative, no acute distress, obese - Head Head exam: Present: atraumatic, normal inspection, normocephalic - Eye Eye exam: Present: EOMI, normal appearance, PERRL Pupils: Present: normal accommodation - ENT ENT exam: Present: mucous membranes moist - Neck Neck exam: Present: normal inspection - Respiratory Respiratory exam: Present: CTAB. Absent: rales, respiratory distress, rhonchi, wheezes - Cardiovascular Cardiovascular exam: Present: RRR, +S1, +S2 - GI/Abdominal GI/Abdominal exam: Present: distended (obese), normal bowel sounds, soft. Absent: tenderness - Extremities Exam Extremities exam: Present: joint swelling (left wrist). Absent: normal inspection (Mild edema notd to the left hand/wrist without erythema, warmth, or tenderness.), pedal edema, tenderness - Neurological Exam Neurological exam: Present: alert, oriented X3, no focal deficits - Psychiatric Psychiatric exam: Present: normal affect, normal mood - Skin Skin exam: Present: dry, intact, normal color, warm Consult Discharge Plan - Plan Instructions: Atrial Fibrillation (DC), Cellulitis (GEN), Sepsis (DC) Referrals: William Sherwood DO [Partnered Physician] - 07/04/18 10:15 am () Fiorella Gooden CNP [Primary Care Provider] - 06/19/18 9:00 am Prescriptions: Amoxicillin/Clavulanate [Augmentin] 875 mg PO BIDWM 5 Days #11 tablet RX: Doxycycline 100 mg PO BID 5 Days #11 capsule RX: predniSONE [PredniSONE] 20 mg PO DAILY 3 Days #3 tablet - Attending Attestation I have personally performed a face to face evaluation on this patient. I have reviewed and agree with the care plan. History and Exam by me shows: Left hand swelling and erythema likley inflammatory. d/w Dr. Sahu MRI reviewed arthrocentesis noted Appreciate orthopedic recommendation Continue antibiotics for now consider switching to orals
[2018-06-15 11:26] VITALS: BP 172/80
[2018-06-15] MEDS ORDERED: Aminoglycoside Consult 1 EACH MC ONE (14:29)
[2018-06-16] MEDS ORDERED: predniSONE 10 MG TABLET PO SCH (09:00)
[2018-06-18 10:18] LABS: ANA IgG by ELISA NONE DETECTED (None Detected)
== END 2018-06-15 14:30 | disposition home or self-care (01) | DRG 603 ==
LOC: EMEROOARM 14:54 → SUATTDRO 18:40 → 2ANU 18:40
PROVIDERS: ADMIT Student in an Organized Health Care Education/Training Program; ATTEND Internal Medicine